=== PATIENT | male | born 1930 | race Caucasian/White ===

== ENCOUNTER 2018-08-23 12:14 | Inpatient (IN) ==
[2018-08-23] MEDS ORDERED: NITROGLYCERIN SL 0.4 MG/TAB TAB SL PRN (12:44)
[2018-08-23] MEDS ORDERED: ASPIRIN CHEW 324 MG PO STA (12:44)
--- NOTE | 2018-08-23 12:51 | Emergency Department Note ---
Entered by Ann Marie Adams acting as a scribe for Preston Helms DO History of Present Illness General Chief complaint: Chest Pain Stated complaint: CHEST PAIN GOING IN TO BACK/SHOULDERS Source: patient History of Present Illness Provider complaint: chest pain Onset (ago): hour(s) (last night) Location: chest Radiation: back (and shoulders) Pain Consistency: + constant Maximum Pain Intensity: 10 Quality: + other (pain) Associated symptoms: + denies other symptoms (denies abdominal pain) Treatments prior to arrival: other (Tylenol) The patient is an 87 year old male who presents to the Emergency Room with complaints of constant chest pain beginning last night. The patient rates his pain at a 10/10. He states that his pain also radiates to his back and shoulders. He states that nothing makes his pain worse or better. He denies having abdominal pain. The patient denies a history of a heart attack and a heart catheterization. He states that he took Tylenol for his pain but that it did not help to alleviate it. He states that he does not smoke and that he does not drink alcohol. He reports a history of diabetes. Home Medications Home Medications Medication Instructions Recorded Confirmed Type acetaminophen [Tylenol Extra 1,000 mg PO UD 08/23/18 08/23/18 History Strength] aspirin 81 mg PO QAM 08/23/18 08/23/18 History digoxin 0.125 mg PO QAM 08/23/18 08/23/18 History glipizide 10 mg PO BID 08/23/18 08/23/18 History hydralazine 12.5 mg PO BID 08/23/18 08/23/18 History metformin 850 mg PO BID 08/23/18 08/23/18 History metoprolol succinate 12.5 mg PO QAM 08/23/18 08/23/18 History simvastatin 20 mg PO QAM 08/23/18 08/23/18 History tramadol 50 mg PO Q6H PRN 08/23/18 08/23/18 History warfarin 2.5 mg PO 3XWK 08/23/18 08/23/18 History warfarin 5 mg PO 4XWK 08/23/18 08/23/18 History Allergies Allergy/AdvReac Type Severity Reaction Status Date / Time No Known Allergies Allergy Mild Unverified 08/23/18 13:42 Past Med/Surg History Medical History T2DM (type 2 diabetes mellitus) Persistent atrial fibrillation HTN (hypertension) HLD (hyperlipidemia) CKD (chronic kidney disease) stage 3, GFR 30-59 ml/min Hx of polymyalgia rheumatica 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 Surgical History History of total right knee replacement (TKR) History of lumbar surgery History of cataract extraction Social History marital status: Single Current Living Situation: Alone Current Living Situation Comment: Girlfriend (Edna) stays frequently Other Information That Helps Us Care for You: No Feels Safe at Home: Yes Safety Concerns: Feels Safe At This Time Smoking Status: Former smoker Tobacco Type: cigarettes Smoking End Date: 30 years ago Hx Alcohol Use: No Hx Substance Use: No Beliefs That Will Affect Care: None Preferred Language: Tanzanian Communication Ability: Effective Signal Apprentice Required: No Review of Systems See HPI for pertinent positives & negatives. and A total of 10 systems reviewed and were otherwise negative Physical Exam Vital Signs Vital Signs - 24 hr 08/23/18 12:18 08/23/18 12:55 08/23/18 13:00 Temperature 36 C L Temperature Source Oral Sepsis Recent Fever Within 48 Hours No Sepsis Action Taken by Nursing No Action Required Pulse Rate 54 L Pulse Rate [Apical] 77 78 Pulse Rate [Finger] Pulse Rhythm [Apical] Pulse Strength [Apical] Respiratory Rate 22 18 20 Respiratory Effort / Characteristics Respiratory Depth Respiratory Pattern Blood Pressure 134/65 Blood Pressure [Right Arm] 123/60 83/46 L Blood Pressure Mean 88 Blood Pressure Mean [Right Arm] 81 58 Blood Pressure Position Sitting Blood Pressure Position [Right Arm] Pulse Oximetry 97 95 96 Oxygen Delivery Method Room Air Room Air Room Air 08/23/18 13:26 08/23/18 13:27 08/23/18 15:06 Temperature Temperature Source Sepsis Recent Fever Within 48 Hours Sepsis Action Taken by Nursing Pulse Rate Pulse Rate [Apical] 87 100 H Pulse Rate [Finger] Pulse Rhythm [Apical] Pulse Strength [Apical] Respiratory Rate 20 20 Respiratory Effort / Characteristics Respiratory Depth Respiratory Pattern Blood Pressure Blood Pressure [Right Arm] 108/51 L 112/72 Blood Pressure Mean Blood Pressure Mean [Right Arm] 70 85 Blood Pressure Position Blood Pressure Position [Right Arm] Pulse Oximetry 95 95 96 Oxygen Delivery Method Room Air Room Air Room Air 08/23/18 16:16 08/23/18 16:30 08/23/18 19:40 Temperature 36.9 C 37.0 C Temperature Source Oral Oral Sepsis Recent Fever Within 48 Hours Sepsis Action Taken by Nursing Pulse Rate 71 Pulse Rate [Apical] 59 L 75 Pulse Rate [Finger] 81 Pulse Rhythm [Apical] Irregular Pulse Strength [Apical] Normal Respiratory Rate 18 20 16 Respiratory Effort / Characteristics Non-Labored Spontaneous Respiratory Depth Normal Respiratory Pattern Regular Blood Pressure Blood Pressure [Right Arm] 108/51 L 123/67 129/65 Blood Pressure Mean Blood Pressure Mean [Right Arm] 70 85 86 Blood Pressure Position Blood Pressure Position [Right Arm] Lying Lying Pulse Oximetry 96 96 95 Oxygen Delivery Method Room Air Room Air Room Air GENERAL: Patient is awake alert in no acute distress patient is resting comfortably and showing no signs of anxiety EYES: The conjunctivae are clear. The pupils are round and reactive. EARS, NOSE, MOUTH AND THROAT: The nose is without any evidence of any deformity. Mucous membranes are moist tongue is midline NECK: The neck is nontender and supple. RESPIRATORY: Scattered rhonchi were noted throughout. There is no tachypnea or conversational dyspnea appreciated. CARDIOVASCULAR: Regular rate and rhythm noted there no murmurs rubs or gallops normal S1 normal S2 GASTROINTESTINAL: The abdomen is soft. Bowel sounds are present in all quadrants. Abdomen is nontender PELVIS: The Pelvis is stable. No tenderness to palpation is noted. BACK: No midline tenderness or or step-off noted range of motion in flexion extension as well as rotation no signs of muscle spasm noted MUSCULOSKELETAL/EXTREMITIES: There is no evidence of gross deformity full range of motion is noted in the hips and shoulders SKIN: There is no obvious evidence of any rash. Trace pedal edema was noted bilaterally. NEUROLOGIC: Patient is awake alert and oriented x3. Course 1243: Past medical records reviewed. The patient was evaluated in room C12B, and a complete history and physical examination were performed. 1352: I updated the patient who verbalized agreement agreement and understanding of the treatment plan. 1405: I discussed the patient's case with Mahnaz Campbell who will evaluate the patient for further management. Consultations Consultation #1: Mahnaz Patacky PA-C [facility] Time: 14:05 Administered Medications Piperacillin Sod/Tazobactam (Sod 3.375 gm/ Dextrose) 115 mls @ 28.75 mls/hr IV Q8H PENDING SALE TO [facility]; Protocol Stop: 08/30/18 19:59 Last Admin: 08/23/18 21:05 Dose: 28.8 mls/hr Insulin Aspart (Novolog Flexpen) 0 units SC ACHS ABHILASH Stop: 09/22/18 16:54 Last Admin: 08/23/18 21:07 Dose: 2 units Admin: 08/23/18 17:45 Dose: 1 units Insulin Glargine (Lantus Solostar Pen) 10 units SC BID ABHILASH Stop: 09/22/18 20:59 Last Admin: 08/23/18 21:07 Dose: 10 units Nitroglycerin (Nitrostat) 0.4 mg SL PRN PRN PRN Reason: Moderate Pain Stop: 09/22/18 12:43 Last Admin: 08/23/18 12:55 Dose: 0.4 mg Discontinued Medications Aspirin (Aspirin) 324 mg PO NOW STA Stop: 08/23/18 12:45 Last Admin: 08/23/18 12:55 Dose: 324 mg Sodium Chloride (Nss 1000ml) 500 mls @ 999 mls/hr IV .Q31M ONE Stop: 08/23/18 13:34 Last Infusion: 08/23/18 13:59 Dose: 0 mls/hr Admin: 08/23/18 13:08 Dose: 999 mls/hr Piperacillin Sod/Tazobactam Sod (Zosyn) 4.5 gm in 120 mls @ 240 mls/hr IV NOW ONE Stop: 08/23/18 14:32 Last Infusion: 08/23/18 16:19 Dose: 0 mls/hr Admin: 08/23/18 15:01 Dose: 240 mls/hr Sodium Chloride (Nss 1000ml) 500 mls @ 999 mls/hr IV .Q31M ONE Stop: 08/23/18 14:34 Last Infusion: 08/23/18 16:19 Dose: 0 mls/hr Admin: 08/23/18 14:10 Dose: 999 mls/hr Phytonadione (Mephyton) Confirm Administered Dose 5 mg PO .STK-MED ONE Stop: 08/23/18 15:04 Last Admin: 08/23/18 15:07 Dose: 5 mg Medical Decision Making Differential Diagnosis Differential diagnosis: Etiologies such as shingles, musculoskeletal pain, pericarditis, myocarditis, cardiac ischemia, pericardial tamponade, pneumonia, pneumothorax, pleural effusion, hemothorax, pleurisy, aortic pathology, pulmonary embolism, intra- abdominal process, as well as others were considered. Medical Records Attestation: I reviewed the patient's medical records. Home Medications Current Medication List: was personally reviewed by me Laboratory Data Attestation: I reviewed the patient's lab results. Result diagrams: 08/23/18 12:37 08/23/18 12:37 Lab Results 08/23/18 08/23/18 08/23/18 Range/Units 12:37 12:37 12:37 WBC 17.01 H (4.8-10.8) K/uL RBC 3.42 L (4.7-6.1) M/uL Hgb 10.1 L (14.0-18.0) g/dL Hct 31.4 L (42-52) % MCV 91.8 (80-100) fL MCH 29.5 (25-34) pg MCHC 32.2 (32-36) g/dL RDW Std Deviation 46.0 (36.4-46.3) fL RDW Coeff of Leena 13.8 (11.5-14.5) % Plt Count 353 (130-400) K/uL MPV 10.0 (7.4-10.4) fL Immature Gran % (Auto) 0.4 % Neut % (Auto) 82.3 % Lymph % (Auto) 7.2 % [place] % (Auto) 9.9 % Eos % (Auto) 0.1 % Baso % (Auto) 0.1 % Immature Gran # (Auto) 0.07 H (0.00-0.02) K/uL Neut # (Auto) 13.99 H (1.4-6.5) K/uL Lymph # (Auto) 1.23 (1.2-3.4) K/uL [place] # (Auto) 1.69 H (0.11-0.59) K/uL Eos # (Auto) 0.01 (0-0.5) K/uL Baso # (Auto) 0.02 (0-0.2) K/uL PT 61.8 H (9.0-12.0) Seconds INR 6.9 H* (0.9-1.1) APTT 47.8 H* (21.0-31.0) Seconds PTT Ratio 1.8 Sodium 134 L (136-145) mmol/L Potassium 4.7 (3.5-5.1) mmol/L Chloride 103 (98-107) mmol/L Carbon Dioxide 26 (21-32) mmol/L Anion Gap 5.0 (3-11) BUN 41 H (7-18) mg/dl Creatinine 2.04 H (0.6-1.4) mg/dl Est Cr Clr Drug Dosing 29.9 ml/min Est GFR ( Amer) 32.7 Est GFR (Non-Af Amer) 28.3 BUN/Creatinine Ratio 20.3 H (10-20) Glucose 257 H (70-99) mg/dl POC Glucose (70-99) Lactate (0.4-2.0) mmol/L Calcium 8.6 (8.5-10.1) mg/dl Total Bilirubin 0.6 (0.2-1) mg/dl AST 31 (15-37) U/L ALT 44 (12-78) U/L Alkaline Phosphatase 67 (45-117) U/L Total Creatine Kinase 35 L (39-308) U/L CK-MB (CK-2) 1.1 (0.5-3.6) ng/ml CK/CKMB % Calc 3.1 H (0-3.0) Troponin I < 0.015 (0-0.045) ng/ml NT-Pro-B Natriuret Pep (0-1800) pg/ml Total Protein 7.9 (6.4-8.2) gm/dl Albumin 2.4 L (3.4-5.0) gm/dl Globulin 5.5 H (2.5-4.0) gm/dl Albumin/Globulin Ratio 0.4 L (0.9-2) Lipase 125 (73-393) U/L Procalcitonin (0-0.5) ng/ml Digoxin (0.8-2.0) ng/ml Influenza Type A (PCR) (Neg) Influenza Type B (PCR) (Neg) 02/19/19 02/19/19 02/19/19 Range/Units 12:37 12:37 12:37 WBC (4.8-10.8) K/uL RBC (4.7-6.1) M/uL Hgb (14.0-18.0) g/dL Hct (42-52) % MCV (80-100) fL MCH (25-34) pg MCHC (32-36) g/dL RDW Std Deviation (36.4-46.3) fL RDW Coeff of Leena (11.5-14.5) % Plt Count (130-400) K/uL MPV (7.4-10.4) fL Immature Gran % (Auto) % Neut % (Auto) % Lymph % (Auto) % [place] % (Auto) % Eos % (Auto) % Baso % (Auto) % Immature Gran # (Auto) (0.00-0.02) K/uL Neut # (Auto) (1.4-6.5) K/uL Lymph # (Auto) (1.2-3.4) K/uL [place] # (Auto) (0.11-0.59) K/uL Eos # (Auto) (0-0.5) K/uL Baso # (Auto) (0-0.2) K/uL PT (9.0-12.0) Seconds INR (0.9-1.1) APTT (21.0-31.0) Seconds PTT Ratio Sodium (136-145) mmol/L Potassium (3.5-5.1) mmol/L Chloride (98-107) mmol/L Carbon Dioxide (21-32) mmol/L Anion Gap (3-11) BUN (7-18) mg/dl Creatinine (0.6-1.4) mg/dl Est Cr Clr Drug Dosing ml/min Est GFR ( Amer) Est GFR (Non-Af Amer) BUN/Creatinine Ratio (10-20) Glucose (70-99) mg/dl POC Glucose (70-99) Lactate (0.4-2.0) mmol/L Calcium (8.5-10.1) mg/dl Total Bilirubin (0.2-1) mg/dl AST (15-37) U/L ALT (12-78) U/L Alkaline Phosphatase (45-117) U/L Total Creatine Kinase (39-308) U/L CK-MB (CK-2) (0.5-3.6) ng/ml CK/CKMB % Calc (0-3.0) Troponin I (0-0.045) ng/ml NT-Pro-B Natriuret Pep 2695 H (0-1800) pg/ml Total Protein (6.4-8.2) gm/dl Albumin (3.4-5.0) gm/dl Globulin (2.5-4.0) gm/dl Albumin/Globulin Ratio (0.9-2) Lipase (73-393) U/L Procalcitonin 0.21 (0-0.5) ng/ml Digoxin 0.1 L (0.8-2.0) ng/ml Influenza Type A (PCR) (Neg) Influenza Type B (PCR) (Neg) 08/23/18 08/23/18 08/23/18 Range/Units 14:20 14:33 17:05 WBC (4.8-10.8) K/uL RBC (4.7-6.1) M/uL Hgb (14.0-18.0) g/dL Hct (42-52) % MCV (80-100) fL MCH (25-34) pg MCHC (32-36) g/dL RDW Std Deviation (36.4-46.3) fL RDW Coeff of Leena (11.5-14.5) % Plt Count (130-400) K/uL MPV (7.4-10.4) fL Immature Gran % (Auto) % Neut % (Auto) % Lymph % (Auto) % [place] % (Auto) % Eos % (Auto) % Baso % (Auto) % Immature Gran # (Auto) (0.00-0.02) K/uL Neut # (Auto) (1.4-6.5) K/uL Lymph # (Auto) (1.2-3.4) K/uL [place] # (Auto) (0.11-0.59) K/uL Eos # (Auto) (0-0.5) K/uL Baso # (Auto) (0-0.2) K/uL PT (9.0-12.0) Seconds INR (0.9-1.1) APTT (21.0-31.0) Seconds PTT Ratio Sodium (136-145) mmol/L Potassium (3.5-5.1) mmol/L Chloride (98-107) mmol/L Carbon Dioxide (21-32) mmol/L Anion Gap (3-11) BUN (7-18) mg/dl Creatinine (0.6-1.4) mg/dl Est Cr Clr Drug Dosing ml/min Est GFR ( Amer) Est GFR (Non-Af Amer) BUN/Creatinine Ratio (10-20) Glucose (70-99) mg/dl POC Glucose 200 H (70-99) Lactate 1.9 (0.4-2.0) mmol/L Calcium (8.5-10.1) mg/dl Total Bilirubin (0.2-1) mg/dl AST (15-37) U/L ALT (12-78) U/L Alkaline Phosphatase (45-117) U/L Total Creatine Kinase (39-308) U/L CK-MB (CK-2) (0.5-3.6) ng/ml CK/CKMB % Calc (0-3.0) Troponin I (0-0.045) ng/ml NT-Pro-B Natriuret Pep (0-1800) pg/ml Total Protein (6.4-8.2) gm/dl Albumin (3.4-5.0) gm/dl Globulin (2.5-4.0) gm/dl Albumin/Globulin Ratio (0.9-2) Lipase (73-393) U/L Procalcitonin (0-0.5) ng/ml Digoxin (0.8-2.0) ng/ml Influenza Type A (PCR) Neg for Influ A (Neg) Influenza Type B (PCR) Neg for Influ B (Neg) 08/23/18 08/23/18 Range/Units 18:32 20:35 WBC (4.8-10.8) K/uL RBC (4.7-6.1) M/uL Hgb (14.0-18.0) g/dL Hct (42-52) % MCV (80-100) fL MCH (25-34) pg MCHC (32-36) g/dL RDW Std Deviation (36.4-46.3) fL RDW Coeff of Leena (11.5-14.5) % Plt Count (130-400) K/uL MPV (7.4-10.4) fL Immature Gran % (Auto) % Neut % (Auto) % Lymph % (Auto) % [place] % (Auto) % Eos % (Auto) % Baso % (Auto) % Immature Gran # (Auto) (0.00-0.02) K/uL Neut # (Auto) (1.4-6.5) K/uL Lymph # (Auto) (1.2-3.4) K/uL [place] # (Auto) (0.11-0.59) K/uL Eos # (Auto) (0-0.5) K/uL Baso # (Auto) (0-0.2) K/uL PT (9.0-12.0) Seconds INR (0.9-1.1) APTT (21.0-31.0) Seconds PTT Ratio Sodium (136-145) mmol/L Potassium (3.5-5.1) mmol/L Chloride (98-107) mmol/L Carbon Dioxide (21-32) mmol/L Anion Gap (3-11) BUN (7-18) mg/dl Creatinine (0.6-1.4) mg/dl Est Cr Clr Drug Dosing ml/min Est GFR ( Amer) Est GFR (Non-Af Amer) BUN/Creatinine Ratio (10-20) Glucose (70-99) mg/dl POC Glucose 212 H (70-99) Lactate (0.4-2.0) mmol/L Calcium (8.5-10.1) mg/dl Total Bilirubin (0.2-1) mg/dl AST (15-37) U/L ALT (12-78) U/L Alkaline Phosphatase (45-117) U/L Total Creatine Kinase (39-308) U/L CK-MB (CK-2) (0.5-3.6) ng/ml CK/CKMB % Calc (0-3.0) Troponin I 0.019 (0-0.045) ng/ml NT-Pro-B Natriuret Pep (0-1800) pg/ml Total Protein (6.4-8.2) gm/dl Albumin (3.4-5.0) gm/dl Globulin (2.5-4.0) gm/dl Albumin/Globulin Ratio (0.9-2) Lipase (73-393) U/L Procalcitonin (0-0.5) ng/ml Digoxin (0.8-2.0) ng/ml Influenza Type A (PCR) (Neg) Influenza Type B (PCR) (Neg) Imaging Data Radiologist's Impression: Radiology results as stated below per my review and the radiologist's interpretation: XR chest 1V portable HISTORY: 87 years-old Male Chest Pain acute atypical chest pain COMPARISON: Chest radiograph 11/10/2012 TECHNIQUE: Portable AP view of the chest FINDINGS: Cardiac silhouette is enlarged, unchanged. Calcification the thoracic aortic arch. Moderate sized left pleural effusion with lateral loculation. Left midlung and left basilar consolidative opacities. Bilateral pleural calcifications redemonstrated without pneumothorax. Mild chronic interstitial coarsening without overt pulmonary edema. Degenerative changes of the shoulders and spine. Healed fracture deformity about the mid right clavicle. IMPRESSION: 1. Moderate-sized left pleural effusion with left midlung and left basilar consolidation. 2. Cardiomegaly without overt pulmonary edema. 3. 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 The above report was generated using voice recognition software. It may contain grammatical, syntax or spelling errors. Electronically signed by: Rohan Jeffrey M.D. 08/23/2018 12:58 PM ECG Data Attestation: I personally reviewed and interpreted this ECG as follows: Indication: chest pain Rate (beats per minute): 84 Rhythm: atrial fibrillation Findings: + ST elevation (questionable in V3); no PAC, no PVC and no ectopy Comparison ECG Date: from (11/11/12) Change: the following changes noted (changes are new) Additional Comments: repeat ECG: Atrial fibrillation, 78, RBBB, resolution of previously noted ST segment abnormalities Blood Pressure Blood Pressure Findings: Low blood pressure Blood Pressure Disposition: further management by hospitalist EVAN Narrative The patient is an 87-year-old male who presented to the emergency department for an evaluation of chest discomfort. The patient's EKG showed initial ST segment abnormalities. He was treated with aspirin and nitroglycerin in the emergency department with some relief. His workup also revealed signs of a pneumonia. I discussed the patient's laboratory and radiographic studies with him. Because of his ongoing symptoms I also discussed his case with the on- call [facility] hospitalist. He was treated with IV antibiotic. He was feeling somewhat improved on final reevaluation. Impression & Plan Chest pain, PNA (pneumonia), Abnormal ECG, Elevated INR Discharge Plan Visit Data *Final* Discharge Date/Time: 08/23/18 16:25 Chief Complaint: Chest Pain Stated Complaint: CHEST PAIN GOING IN TO BACK/SHOULDERS ED Provider: Preston Helms Discharge Problem: Chest pain, PNA (pneumonia), Abnormal ECG, Elevated INR Patient Disposition: Admitted As Inpatient Discharge Instructions Interventions: ED Discharge Assessment Last Done: 08/23/18 16:25 The scribe's documentation has been prepared under my direction and personally reviewed by me in its entirety. I confirm that the note above accurately reflects all work, treatment, procedures, and medical decision making performed by me.
[2018-08-23 12:59] LABS: Basophils # (auto) 0.02 K/uL (0-0.2); Basophils % (auto) 0.1 %; Eosinophils # (auto) 0.01 K/uL (0-0.5); Eosinophils % (auto) 0.1 %; Hematocrit (blood only) 31.4 % (42-52); Hemoglobin 10.1 g/dL (14.0-18.0); Immature Granulocytes # (auto) 0.07 K/uL (0.00-0.02); Immature Granulocytes % (auto) 0.4 %; Lymphocytes # (auto) 1.23 K/uL (1.2-3.4); Lymphocytes % (auto) 7.2 %; Mean Corpuscular Hgb Conc 32.2 g/dL (32-36); Mean Corpuscular Volume 91.8 fL (80-100); Monocytes # (auto) 1.69 K/uL (0.11-0.59); Monocytes % (auto) 9.9 %; Neutrophils # (auto) 13.99 K/uL (1.4-6.5); Neutrophils % (auto) 82.3 %; Platelet Count 353 K/uL (130-400); RDW Coefficient of Variation 13.8 % (11.5-14.5); Red Blood Count 3.42 M/uL (4.7-6.1); White Blood Count 17.01 K/uL (4.8-10.8)
--- NOTE | 2018-08-23 12:59 | XRay Report ---
XR chest 1V portable HISTORY: 87 years-old Male Chest Pain acute atypical chest pain COMPARISON: Chest radiograph 11/10/2012 TECHNIQUE: Portable AP view of the chest FINDINGS: Cardiac silhouette is enlarged, unchanged. Calcification the thoracic aortic arch. Moderate sized lef t pleural effusion with lateral loculation. Left midlung and left basilar consolidative opacities. Bi lateral pleural calcifications redemonstrated without pneumothorax. Mild chronic interstitial coarsen ing without overt pulmonary edema. Degenerative changes of the shoulders and spine. Healed fracture d eformity about the mid right clavicle. IMPRESSION: 1. Moderate-sized left pleural effusion with left midlung and left basilar consolidation. 2. Cardiomegaly without overt pulmonary edema. 3. 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 The above report was generated using voice recognition software. It may contain grammatical, syntax o r spelling errors. Electronically signed by: Rohan Jeffrey M.D. 08/23/2018 12:58 PM
[2018-08-23] MEDS ORDERED: SODIUM CHLORIDE 0.9% 1000ML 500 ML IV ONE ×2 (13:04→14:04)
[2018-08-23 13:05] LABS: Alanine Aminotransferase 44 U/L (12-78); Albumin Level 2.4 gm/dl (3.4-5.0); Aspartate Aminotransferase 31 U/L (15-37); BUN Creatinine Ratio 20.3 (10-20); Blood Urea Nitrogen 41 mg/dl (7-18); Calcium 8.6 mg/dl (8.5-10.1); Carbon Dioxide 26 mmol/L (21-32); Chloride 103 mmol/L (98-107); Creatinine Clr Calc Pharmacy 29.9 ml/min; Est GFR (African American) 32.7; Est GFR (Non-African American) 28.3; Glucose 257 mg/dl (70-99); Potassium 4.7 mmol/L (3.5-5.1); Sodium 134 mmol/L (136-145)
[2018-08-23 13:10] LABS: Albumin Globulin Ratio 0.4 (0.9-2); Alkaline Phosphatase 67 U/L (45-117); Bilirubin,Total 0.6 mg/dl (0.2-1); Creatine Kinase 35 U/L (39-308); Creatine Kinase MB 1.1 ng/ml (0.5-3.6); Globulin 5.5 gm/dl (2.5-4.0); Total Protein 7.9 gm/dl (6.4-8.2); Troponin I < 0.015 ng/ml (0-0.045)
[2018-08-23 13:22] LABS: Partial Thromboplastin Ratio 1.8; Prothrombin Time 61.8 Seconds (9.0-12.0)
[2018-08-23 13:33] LABS: Partial Thromboplastin Time 47.8 Seconds (21.0-31.0)
[2018-08-23 13:34] LABS: INR 6.9 (0.9-1.1)
[2018-08-23] MEDS ORDERED: PIPERACILL/TAZOBAC CONSULT ACTIVE PRN ×2 (14:03→16:55)
[2018-08-23] MEDS ORDERED: PIPERACILLIN/TAZOBACTAM 4.5 GM/120 ML BAG IV ONE (14:03)
[2018-08-23] MEDS ORDERED: PHYTONADIONE 5 MG TAB PO STA (14:57)
[2018-08-23] MEDS ORDERED: PHYTONADIONE 5 MG TAB PO ONE (15:03)
[2018-08-23 15:12] LABS: Influenza A virus by PCR Neg for Influ A (Neg); Influenza B virus by PCR Neg for Influ B (Neg)
--- NOTE | 2018-08-23 15:27 | History & Physical Report ---
Date of Service August 23, 2018 Assessment & Plan (1) Chest pain: This is a 87-year-old male with significant PMH of persistent A. 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 In ED initial troponin was negative, EKG without acute change, chronic bifascicular block noted in atrial fibrillation. Chest x-ray consistent with moderate left pleural effusion, lateral loculation, left midlung/basilar consolidative opacity with mild chronic interstitial thickening and calcified pleural plaques. Patient with leukocytosis 17 K with left shift, BUN/ creatinine stable 41 and 2.04, dig 0.1, lactate 1.9, pro-calcitonin within normal limits, influenza swab negative. In ED patient received ASA and nitro which resulted in hypotension. Blood pressure improved with fluid bolus. He was also given IV Zosyn given pneumonic appearance of chest x-ray. DDX but not limited to: Pulm: PNA, empyema, abscess, transudative pleural effusion, infectious effusion, Cardiac: Pericarditis, pericardial tamponade, CHF , ACS, aortic dissection -Admit to telemetry -Consult pulmonology, discussed case with Dr. Alonso who will likely perform thoracentesis with fluid analysis -Obtain CT scan chest without contrast given renal function -Continue IV Zosyn given pleural effusion -Check MRSA swab, if negative we will not implement MRSA coverage -Await BNP -Obtain echocardiogram -Serial troponin starting at 6 PM (2) Pleural effusion, left: (3) DEMPSEY (dyspnea on exertion): (4) Persistent atrial fibrillation: -Rate controlled on metoprolol and digoxin, continue -Dig level 0.1 today -Warfarin for anticoagulation, INR 6.9, once evening (patient already took a dose this a.m.) -5 mg vitamin K given secondary to likely thoracentesis -Repeat INR in a.m. (5) T2DM (type 2 diabetes mellitus): -Unknown A1c, last noted in outpatient records 06/29/17 was 7.4 -Hold outpatient metformin and glipizide, would recommend discontinuing metformin as outpatient given current renal function -Lantus/NovoLog per protocol -A1c in a.m. (6) HTN (hypertension): -Blood pressure on low side, will hold home hydralazine -Continue metoprolol with parameters (7) HLD (hyperlipidemia): -Continue statin (8) CKD (chronic kidney disease) stage 3, GFR 30-59 ml/min: -Baseline creatinine 1.71.9 -BUN/creatinine today 41 and 2.04 -Follow BMP and avoid nephrotoxic agents -Patient on metformin as outpatient, would recommend discontinuing given current renal function (9) Anemia: -H/H 10.0 and 31.4 -H/H in 01/2017 13.2 and 40 -Normocytic normochromic -Monitor CBC, may be secondary CKD stage III (10) Elevated INR: -INR supratherapeutic at 6.9, hold Coumadin -Check PT/INR in a.m. -5 mg of vitamin K ordered secondary to likely thoracentesis -No signs or symptoms of current bleeding (11) DVT prophylaxis: -INR supratherapeutic at 6.9, hold Coumadin -Check PT/INR in a.m. -5 mg of vitamin K ordered secondary to likely thoracentesis Disposition: to be determined, case management consulted [facility] Patient was seen in collaboration with Dr. Wayne, please see addendum. Starting 08/24/18 patient will be under the care of Dr. Ng. History of Present Illness Chief Complaint: Chest pain x 2-3 weeks. Primary Care Provider: Gopi Valdivia This is a 87-year-old male with significant PMH of persistent A. 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 Symptoms are associated with DEMPSEY that has been progressively worsening. Patient states that he woke up approximately 2 AM with stabbing precordial chest pain that radiated to back, constant, wax and wane in severity, worse with inspiration. Denies any recent viral illness, cough, hemoptysis, associated diaphoresis or nausea, edema, orthopnea, PND. Never had anything like this in past. Further denies fever, chills, sweats, lightheadedness, dizziness, abdominal pain, change in bowel or urinary habits, hematuria, melena. Appetite has been decreased for the past 2-3 months with associated weight loss. Unsure of amount of weight loss, but lady friend states , "he is getting down to skin and bones." He ambulates with cane. Allergies Allergy/AdvReac Type Severity Reaction Status Date / Time No Known Allergies Allergy Mild Unverified 08/23/18 13:42 Home Medications Home Medications Medication Instructions Recorded Confirmed Type acetaminophen [Tylenol Extra 1,000 mg PO UD 08/23/18 08/23/18 History Strength] aspirin 81 mg PO QAM 08/23/18 08/23/18 History digoxin 0.125 mg PO QAM 08/23/18 08/23/18 History glipizide 10 mg PO BID 08/23/18 08/23/18 History hydralazine 12.5 mg PO BID 08/23/18 08/23/18 History metformin 850 mg PO BID 08/23/18 08/23/18 History metoprolol succinate 12.5 mg PO QAM 08/23/18 08/23/18 History simvastatin 20 mg PO QAM 08/23/18 08/23/18 History tramadol 50 mg PO Q6H PRN 08/23/18 08/23/18 History warfarin 2.5 mg PO 3XWK 08/23/18 08/23/18 History warfarin 5 mg PO 4XWK 08/23/18 08/23/18 History Past Med/Surg History Medical History T2DM (type 2 diabetes mellitus) Persistent atrial fibrillation HTN (hypertension) HLD (hyperlipidemia) CKD (chronic kidney disease) stage 3, GFR 30-59 ml/min Hx of polymyalgia rheumatica 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 Surgical History History of total right knee replacement (TKR) History of lumbar surgery History of cataract extraction Social History marital status: Single Current Living Situation: Alone Current Living Situation Comment: Girlfriend (Edna) stays frequently Other Information That Helps Us Care for You: No Feels Safe at Home: Yes Safety Concerns: Feels Safe At This Time Smoking Status: Former smoker Tobacco Type: cigarettes Smoking End Date: 30 years ago Hx Alcohol Use: No Hx Substance Use: No Beliefs That Will Affect Care: None Preferred Language: Greek Communication Ability: Effective Spar Finisher Required: No Review of Systems All systems reviewed & are unremarkable except as noted in HPI & below Physical Exam 2 Vital Signs (Past 24 Hours): Last Vital Signs Temp 36 C L 08/23/18 12:18 Pulse 100 H 08/23/18 15:06 Resp 20 08/23/18 15:06 BP 112/72 08/23/18 15:06 Pulse Ox 96 08/23/18 15:06 Physical Exam: Gen: Tall, thin, M, NAD, sitting up in bed, pleasant, conversing easily Head: Normocephalic, Atraumatic Eyes: Sclera normal, no conjunctival injection, PERRLA, EOMI ENT: Gross hearing intact, normal pharynx, mucous membranes moist but poor dentition Neck: supple, no adenopathy, + JVD, no bruit, Resp: Clear to auscultation b/l with decreased breath sounds LLL, no wheeze, rales, rhonchi. Normal insp/exp effort, no accessory muscle use CV: irregular rate, irrregular rhythm, no murmur, + gallop noted throughout precordium with associated subtle rub, no ectopy Abd: +BS x 4, soft, nontender, nondistended Musculoskeletal: moves extremities active rom x 4, strength intact, good electrical equipment technician strength Extremities: No edema bilaterally Skin: warm, moist, no rash, negative turgor, cap refill < 2sec Neuro: Alert and oriented x 3, speech normal, good mood/affect, cran nerve 2-12 intact grossly : deferred Results & Data Laboratory Results Short CBC 08/23/18 Range/Units 12:37 WBC 17.01 H (4.8-10.8) K/uL Hgb 10.1 L (14.0-18.0) g/dL Hct 31.4 L (42-52) % Plt Count 353 (130-400) K/uL BMP 08/23/18 12:37 Sodium 134 L Potassium 4.7 Chloride 103 Carbon Dioxide 26 BUN 41 H Creatinine 2.04 H Glucose 257 H Calcium 8.6 Cardiac Enzymes 08/23/18 Range/Units 12:37 Total Creatine Kinase 35 L (39-308) U/L CK-MB (CK-2) 1.1 (0.5-3.6) ng/ml Troponin I < 0.015 (0-0.045) ng/ml Liver Function 08/23/18 Range/Units 12:37 Total Bilirubin 0.6 (0.2-1) mg/dl AST 31 (15-37) U/L ALT 44 (12-78) U/L Alkaline Phosphatase 67 (45-117) U/L Albumin 2.4 L (3.4-5.0) gm/dl Diagnostic Findings CXR: IMPRESSION: 1. Moderate-sized left pleural effusion with left midlung and left basilar consolidation. 2. Cardiomegaly without overt pulmonary edema. 3. 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 ECG Rate (beats per minute): 78 Rhythm: atrial fibrillation Additional Comments: qtc [id number] Code Status & VTE Plan Code Status Full Code VTE Prophylaxis Plan VTE Prophylaxis will be ordered: Yes Supervising Physician Co-Signing Physician Notes Pt was seen and examined. Agreed with Mahnaz exam, assessment and plan. 87- year-old male with significant PMH of persistent A. fib on long-term warfarin, chronic bifascicular heart block, HTN, HLD, T2 DM, CKD stage III, history of PMR , history of tachycardic induced cardiomyopathy presents to the ER with chest pain associated with worsening SOB for the past 2 weeks. CX chest done on admission showed moderate-sized left pleural effusion with left midlung and left basilar consolidation. EKG on admission with Afib. He is on coumadin with INR above 6. Case discussed with pulmonology, plan for thoracentesis in am. Will give vit K 5mg x1 today for the thoracentesis (already took his coumadin for today). Will get an echo in the morning. Monitor troponin. Will continue monitor closely in telemetry. MD Tone _ (1) T2DM (type 2 diabetes mellitus) Chronic kidney disease stage: stage 3 (moderate) Diabetes mellitus complication detail: with chronic kidney disease Diabetes mellitus complication status: with kidney complications Diabetes mellitus care home insulin use: without care home use Qualified Code(s): E11.22 - Type 2 diabetes mellitus with diabetic chronic kidney disease; N18.3 - Chronic kidney disease, stage 3 (moderate) (2) Anemia Anemia type: unspecified type Qualified Code(s): D64.9 - Anemia, unspecified (3) HLD (hyperlipidemia) Hyperlipidemia type: unspecified Qualified Code(s): E78.5 - Hyperlipidemia, unspecified (4) Chest pain Chest pain type: unspecified Ischemic chest pain type: Qualified Code(s): R07.9 - Chest pain, unspecified (5) HTN (hypertension) Hypertension type: essential hypertension Qualified Code(s): I10 - Essential (primary) hypertension
--- NOTE | 2018-08-23 16:08 | CT Scan Report ---
CT chest wo con CLINICAL HISTORY: L pleural effusion COMPARISON STUDY: 08/23/2018 CT DOSE: 674.35 mGy.cm TECHNIQUE: CT of the thorax was performed from the thoracic inlet to the lung bases. Images are revi ewed in the axial, sagittal, and coronal planes. IV contrast was not administered for this examinatio n. A dose lowering technique was utilized adhering to the principles of ALARA. FINDINGS: Thyroid: There is a multinodular thyroid goiter. 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 Heart: The heart is mildly enlarged. There are coronary artery calcifications. Lungs and pleural spaces: There are extensive pleural diaphragmatic calcifications, raising the possi bility of prior spasticity exposure. There is a complex left pleural effusion with possible areas of pleural nodularity. There are left lower lobe airspace opacities, likely representing compressive ate lectasis. There is a Sabre like configuration of the trachea. Mediastinum: There are mildly enlarged mediastinal lymph nodes with index 12 mm right paratracheal no de. Lia: There is no evidence of pathologic hilar adenopathy given the limitations of a noncontrast stud y Axilla: There is no evidence of pathologic axillary adenopathy Upper abdomen: There is a 52 mm right renal cyst. There is a punctate right renal calculus. Skeletal structures: There are no lytic or blastic osseous lesions. IMPRESSION: 1. Moderate complex left pleural effusion with areas of probable pleural nodularity. Pulmonary consul tation for consideration of a diagnostic thoracentesis is recommended in follow-up 2. Left lower lobe airspace opacities, likely representing compressive atelectasis 3. Extensive pleurodiaphragmatic calcifications raise the possibility of asbestos related disease 4. Enlarged multinodular thyroid goiter 5. Mild mediastinal lymphadenopathy 6. Dilatation of the ascending thoracic aorta which measures 45 mm Electronically signed by: Jordan Peña M.D. 08/23/2018 4:07 PM
[2018-08-23] MEDS ORDERED: GLUCAGON FOR INJ 1 MG VIAL SQ PRN (16:55)
[2018-08-23] MEDS ORDERED: GLUCOSE 40% GEL 15 GM TUBE PO PRN (16:55)
[2018-08-23] MEDS ORDERED: ACETAMINOPHEN 325 MG TAB PO PRN (16:55)
[2018-08-23] MEDS ORDERED: POLYETHYLENE (MIRALAX) 17 GM PACK PO PRN (16:55)
[2018-08-23] MEDS ORDERED: CARBOHYDRATES FOR HYPOGLYCEMIA PO PRN (16:55)
[2018-08-23] MEDS ORDERED: GLUCOSE 10 TABS/TUBE PO PRN (16:55)
[2018-08-23] MEDS ORDERED: ONDANSETRON INJ 2 MG/ML 2 ML VIAL IV PRN (16:55)
[2018-08-23] MEDS ORDERED: DEXTROSE 50% 50 ML SYRINGE IV PRN (16:55)
[2018-08-23] MEDS ORDERED: LEVALBUTEROL HCL 0.63 MG/3 ML NEB NEB PRN (16:55)
[2018-08-23] MEDS: INSULIN ASPART 100 UNITS/ML 3 ML PEN SC SCH ×2 (17:45→21:07)
[2018-08-23] MEDS: PIPERACILLIN/TAZOBACTAM 3.375 GM in DEXTROSE 5% 100 ML IV SCH (21:05)
[2018-08-23] MEDS: INSULIN GLARGINE SOLOSTAR 100 UNITS/ML 3 ML PEN SC SCH (21:07)
[2018-08-24] MEDS: PIPERACILLIN/TAZOBACTAM 3.375 GM in DEXTROSE 5% 100 ML IV SCH ×3 (04:03→21:02)
[2018-08-24 06:07] LABS: Basophils # (auto) 0.01 K/uL (0-0.2); Basophils % (auto) 0.1 %; Eosinophils # (auto) 0.06 K/uL (0-0.5); Eosinophils % (auto) 0.4 %; Hematocrit (blood only) 28.6 % (42-52); Immature Granulocytes # (auto) 0.04 K/uL (0.00-0.02); Immature Granulocytes % (auto) 0.3 %; Lymphocytes # (auto) 1.07 K/uL (1.2-3.4); Mean Corpuscular Hgb Conc 31.5 g/dL (32-36); Mean Corpuscular Volume 91.1 fL (80-100); Mean Platelet Volume 9.7 fL (7.4-10.4); Monocytes # (auto) 1.34 K/uL (0.11-0.59); Neutrophils # (auto) 10.85 K/uL (1.4-6.5); Neutrophils % (auto) 81.2 %; Platelet Count 259 K/uL (130-400); RDW Coefficient of Variation 13.9 % (11.5-14.5); RDW Standard Deviation 46.1 fL (36.4-46.3); Red Blood Count 3.14 M/uL (4.7-6.1); White Blood Count 13.37 K/uL (4.8-10.8)
[2018-08-24 06:35] LABS: BUN Creatinine Ratio 22.3 (10-20); Calcium 8.3 mg/dl (8.5-10.1); Creatinine Clr Calc Pharmacy 27.6 ml/min; Est GFR (African American) 32.9; Est GFR (Non-African American) 28.4; Magnesium 1.9 mg/dl (1.8-2.4); Potassium 4.7 mmol/L (3.5-5.1)
[2018-08-24 06:45] LABS: Prothrombin Time 50.6 Seconds (9.0-12.0)
[2018-08-24 06:46] LABS: Estimated Average Glucose 160 mg/dl; Hemoglobin A1C 7.2 % (4.5-5.6)
[2018-08-24 06:49] LABS: INR 5.6 (0.9-1.1)
[2018-08-24] MEDS ORDERED: PHYTONADIONE 5 MG TAB PO STA (07:01)
[2018-08-24] MEDS ORDERED: PHYTONADIONE PED 2 MG, ORA-SWEET SYRUP 2.25 ML, ORA-PLUS SUSP VEHICLE 2.25 ML, BARCODE ... PO ONE (07:15)
[2018-08-24] MEDS: INSULIN ASPART 100 UNITS/ML 3 ML PEN SC SCH ×4 (07:56→21:07)
[2018-08-24] MEDS: INSULIN GLARGINE SOLOSTAR 100 UNITS/ML 3 ML PEN SC SCH ×2 (07:57→21:02)
[2018-08-24] MEDS: METOPROLOL SUCC 25MG EXT REL TAB PO SCH (07:58)
[2018-08-24] MEDS: SIMVASTATIN 20 MG TAB PO SCH (07:58)
[2018-08-24] MEDS: ASPIRIN 81 MG CHEW PO SCH (09:25)
--- NOTE | 2018-08-24 13:05 | Hospitalist Progress Note ---
Date of Service August 24, 2018 Assessment & Plan (1) Chest pain: DDX but not limited to: Pulm: PNA, empyema, abscess, transudative pleural effusion, infectious effusion, Cardiac: Pericarditis, pericardial tamponade, CHF , ACS, aortic dissection Pain is likely secondary to pleurisy secondary to pneumonia and effusion Consult pulmonology-appreciate input and recommendation Obtain CT scan chest without contrast given renal function Continue IV Zosyn for possible empyema and pneumonic effusion Check MRSA swab, if negative we will not implement MRSA coverage Doubt any ACS Echo of the heart: Moderate pulmonary hypertension, mild right ventricular dilatation with decreased right ventricular systolic function, mild to moderate left and right atrial dilatation, bicuspid aortic valve with regurgitation, mild aortic stenosis, EF of 55-60% (2) Pleural effusion, left: Associated with chest pain with deep breathing Seems to be pneumonic effusion Appreciate thoracic surgery input and recommendation Likely to have decortication tomorrow (3) DEMPSEY (dyspnea on exertion): Secondary to effusion (4) Persistent atrial fibrillation: -Rate controlled on metoprolol and digoxin, continue -Dig level 0.1 today -Warfarin for anticoagulation, INR 6.9, once evening (patient already took a dose this a.m.) -5 mg vitamin K given secondary to likely thoracentesis -Repeat INR in a.m. -INR remains high at 5.6 today -Put another dose of vitamin K this morning -Repeat INR tomorrow, if not below 1.5 we will give fresh frozen plasma before surgery (5) T2DM (type 2 diabetes mellitus): -Unknown A1c, last noted in outpatient records 06/29/17 was 7.4 -Hold outpatient metformin and glipizide, would recommend discontinuing metformin as outpatient given current renal function -Lantus/NovoLog per protocol -A1c in a.m-7.2. (6) HTN (hypertension): -Blood pressure on low side, will hold home hydralazine -Continue metoprolol with parameters (7) HLD (hyperlipidemia): -Continue statin (8) CKD (chronic kidney disease) stage 3, GFR 30-59 ml/min: -Baseline creatinine 1.71.9 -BUN/creatinine today 41 and 2.04 -Follow BMP and avoid nephrotoxic agents -Patient on metformin as outpatient, would recommend discontinuing given current renal function -Creatinine 2.03 (9) Anemia: -H/H 10.0 and 31.4 -H/H in 01/2017 13.2 and 40 -Normocytic normochromic -Monitor CBC, may be secondary CKD stage III -Hemoglobin is 9 today (10) Elevated INR: -INR supratherapeutic at 6.9, hold Coumadin -Check PT/INR in a.m. -5 mg of vitamin K ordered secondary to likely thoracentesis -No signs or symptoms of current bleeding -INR 5.6 today -We will monitor (11) DVT prophylaxis: -INR supratherapeutic at 6.9, hold Coumadin -Check PT/INR in a.m. -5 mg of vitamin K ordered secondary to likely thoracentesis Disposition: to be determined, case management consulted [facility] Subjective This is a 87-year-old male with significant PMH of persistent A. 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 08/24 The patient was seen and examined in telemetry unit He continues to have mild to moderate shortness of breath at rest He also complains to have chest pain with inspiration Denies any fever and/or chills, denies any nausea and/or vomiting Physical Exam 2 Vital Signs (Past 24 Hours): Last Vital Signs Temp 36.8 C 08/24/18 11:45 Pulse 99 H 08/24/18 11:45 Resp 18 08/24/18 11:45 BP 136/66 08/24/18 11:45 Pulse Ox 96 08/24/18 11:45 Physical Exam: Moderate shortness of breath at rest Constitutional: well developed, + acute distress (Minimal acute distress) and + ill appearing Eyes: PERRL, conjunctivae normal, anicteric sclerae ENMT: external ear and nose normal, oropharynx normal Respiratory: + respiratory distress and + uses accessory muscles Auscultation: + diminished lung sounds (More on the left than the right base) and + wheezes Cardiovascular: Rate/Rhythm: regular rate and regular rhythm Heart Sounds: normal S1 and normal S2 Gastrointestinal (Abdomen): Inspection/Auscultation: abdomen normal to inspection and normal bowel sounds Percussion/Palpation: abdomen soft Neurologic: Alert, awake and oriented x3. Results & Data Laboratory Results Short CBC 08/24/18 Range/Units 05:49 WBC 13.37 H (4.8-10.8) K/uL Hgb 9.0 L (14.0-18.0) g/dL Hct 28.6 L (42-52) % Plt Count 259 (130-400) K/uL BMP 08/23/18 08/24/18 12:37 05:49 Sodium 134 L 138 Potassium 4.7 4.7 Chloride 103 108 H Carbon Dioxide 26 25 BUN 41 H 45 H Creatinine 2.04 H 2.03 H Glucose 257 H 108 H Calcium 8.6 8.3 L Cardiac Enzymes 08/23/18 08/23/18 Range/Units 12:37 18:32 Total Creatine Kinase 35 L (39-308) U/L CK-MB (CK-2) 1.1 (0.5-3.6) ng/ml Troponin I < 0.015 0.019 (0-0.045) ng/ml Liver Function 08/23/18 Range/Units 12:37 Total Bilirubin 0.6 (0.2-1) mg/dl AST 31 (15-37) U/L ALT 44 (12-78) U/L Alkaline Phosphatase 67 (45-117) U/L Albumin 2.4 L (3.4-5.0) gm/dl Medications Administered Current Inpatient Medications Acetaminophen (Tylenol) 650 mg PO Q4H PRN PRN Reason: Pain or Fever Stop: 09/22/18 16:54 Aspirin (A[facility]in Chew) [facility] [place]: 09/23/18 08:59 Last Admin: 08/24/18 09:25 Dose: 81 mg Dextrose (Dextrose 50%) 25 - 50 ml IV UD PRN; Protocol PRN Reason: Hypoglycemia Protocol Stop: 09/22/18 16:54 Digoxin (Lanoxin) 0.125 mg PO DAILY@1600 [facility] Stop: 09/23/18 15:59 Glucagon (Glucagen) 1 mg SQ UD PRN; Protocol PRN Reason: Hypoglycemia Protocol Stop: 09/22/18 16:54 Glucose (Glucose 40%) 15 - 30 gm PO UD PRN; Protocol PRN Reason: Hypoglycemia Protocol Stop: 09/22/18 16:54 Glucose (Dex4 Glucose) 4 - 8 tabs PO UD PRN; Protocol PRN Reason: Hypoglycemia Protocol Stop: 09/22/18 16:54 Piperacillin Sod/Tazobactam (Sod 3.375 gm/ Dextrose) 115 mls @ 28.75 mls/hr IV Q8H [facility]; Protocol Stop: 08/30/18 19:59 Last Admin: 08/24/18 11:48 Dose: 28.8 mls/hr Insulin Aspart (Novolog Flexpen) 0 units SC ACHS [facility] Stop: 09/22/18 16:54 Last Admin: 08/24/18 11:46 Dose: 2 units Insulin Glargine (Lantus Solostar Pen) 10 units SC BID [facility] Stop: 09/22/18 20:59 Last Admin: 08/24/18 07:57 Dose: 10 units Levalbuterol HCl (Xopenex 0.63 Mg/3 Ml Neb) 0.63 mg NEB Q6R PRN PRN Reason: Shortness Of Breath Or Wheezing Stop: 09/22/18 16:54 Metoprolol Succinate (Toprol Xl) 12.5 mg PO [facility] Stop: 09/23/18 08:59 Last Admin: 08/24/18 07:58 Dose: 12.5 mg Miscellaneous (Carbohydrates For Hypoglycemia) 15 - 30 gm PO UD PRN PRN Reason: Hypoglycemia Treatment Stop: 09/22/18 16:54 Miscellaneous Information (Consult) 1 ea N/A UD PRN PRN Reason: Consult Stop: 09/22/18 16:54 Nitroglycerin (Nitrostat) 0.4 mg SL PRN PRN PRN Reason: Moderate Pain Stop: 09/22/18 12:43 Last Admin: 08/23/18 12:55 Dose: 0.4 mg Ondansetron HCl (Zofran) 4 mg IV Q6H PRN PRN Reason: Nausea Stop: 09/22/18 16:54 Polyethylene Glycol (Miralax Powder Packet) 17 gm PO DAILY PRN PRN Reason: Constipation Stop: 09/22/18 16:54 Simvastatin (Zocor) 20 [facility] [place]: 09/23/18 08:59 Last Admin: 08/24/18 07:58 Dose: 20 mg _ (1) Chest pain Chest pain type: unspecified Ischemic chest pain type: Qualified Code(s): R07.9 - Chest pain, unspecified (2) T2DM (type 2 diabetes mellitus) Diabetes mellitus intermodal customer service insulin use: without mcfp use Diabetes mellitus complication status: with kidney complications Diabetes mellitus complication detail: with chronic kidney disease Diabetic retinopathy severity : Proliferative retinopathy type: Diabetes mellitus macular edema: Laterality: Chronic kidney disease stage: stage 3 (moderate) Qualified Code(s ): E11.22 - Type 2 diabetes mellitus with diabetic chronic kidney disease; N18.3 - Chronic kidney disease, stage 3 (moderate) (3) HTN (hypertension) Hypertension type: essential hypertension Qualified Code(s): I10 - Essential (primary) hypertension (4) HLD (hyperlipidemia) Hyperlipidemia type: unspecified Qualified Code(s): E78.5 - Hyperlipidemia, unspecified (5) Anemia Anemia type: unspecified type Iron deficiency anemia type: Vitamin B12 deficiency anemia type: Folate deficiency anemia type: Bone marrow failure anemia type: Hemolytic anemia type: Other causes of anemia: Chronic kidney disease stage: Qualified Code(s): D64.9 - Anemia, unspecified
--- NOTE | 2018-08-24 15:43 | Anesthesiology Consultation ---
Date of Service August 24, 2018 Assessment & Plan (1) Encounter for pre-operative examination: Chart Review Chart Review: Acceptable Risk for Surgery and Patient NOT seen in Pre Admission Testing Consults Requested none History Surgery Operation Date: 08/25/18 13:00 Proposed Procedures p Left Thoracoscopy with Decortication - Rafael Alberts MD, FACS Height/Weight Height: 6 ft Weight: 83.9 kg Allergies Allergy/AdvReac Type Severity Reaction Status Date / Time No Known Allergies Allergy Mild Unverified 08/23/18 13:42 Medications Home Medications Medication Instructions Recorded Confirmed Last Taken acetaminophen [Tylenol Extra 1,000 mg PO UD 08/23/18 08/23/18 08/23/18 09:00 Strength] aspirin 81 mg PO QAM 08/23/18 08/23/18 08/23/18 digoxin 0.125 mg PO QAM 08/23/18 08/23/18 08/23/18 glipizide 10 mg PO BID 08/23/18 08/23/18 08/23/18 hydralazine 12.5 mg PO BID 08/23/18 08/23/18 08/23/18 metformin 850 mg PO BID 08/23/18 08/23/18 08/23/18 metoprolol succinate 12.5 mg PO QAM 08/23/18 08/23/18 08/23/18 simvastatin 20 mg PO QAM 08/23/18 08/23/18 08/23/18 tramadol 50 mg PO Q6H PRN 08/23/18 08/23/18 Unknown warfarin 2.5 mg PO 3XWK 08/23/18 08/23/18 08/22/18 warfarin 5 mg PO 4XWK 08/23/18 08/23/18 08/23/18 Active Medications Generic Name Dose Route Start Last Admin Trade Name Freq PRN Reason Stop Dose Admin Aspirin 81 mg 08/24/18 09:00 08/24/18 09:25 Aspirin Chew PO 09/23/18 08:59 81 mg QAM ABHILASH Administration Piperacillin Sod/Tazobactam 115 mls @ 28.75 mls/hr 08/23/18 20:00 08/24/18 11 :48 Sod 3.375 gm/ Dextrose IV 08/30/18 19:59 28.8 mls/hr Q8H ABHILASH Administration Protocol Insulin Aspart 0 units 08/23/18 16:55 08/24/18 11:46 Novolog Flexpen SC 09/22/18 16:54 2 units ACHS ABHILASH Administration Insulin Glargine 10 units 08/23/18 21:00 08/24/18 07:57 Lantus Solostar Pen SC 09/22/18 20:59 10 units BID ABHILASH Administration Metoprolol Succinate 12.5 mg 08/24/18 09:00 08/24/18 07:58 Toprol Xl PO 09/23/18 08:59 12.5 mg QAM ABHILASH Administration Nitroglycerin 0.4 mg 08/23/18 12:44 08/23/18 12:55 Nitrostat SL 09/22/18 12:43 0.4 mg PRN PRN Administration Moderate Pain Simvastatin 20 mg 08/24/18 09:00 08/24/18 07:58 Zocor PO 09/23/18 08:59 20 mg QAM ABHILASH Administration Past Surgical History Surgical History History of total right knee replacement (TKR) History of lumbar surgery 2012. [facility] (Dr. Blanc). MAC 4, DLx1. 8.0ETT. History of cataract extraction Social History Smoking Status: Former smoker tobacco type: cigarettes Smoking End Date: 30 years ago Hx Alcohol Use: No Hx Substance Use: No Physical Exam Vital Signs Last Vital Signs Temp 37.8 C H 08/24/18 15:27 Pulse 97 H 08/24/18 15:27 Resp 15 08/24/18 15:27 BP 133/69 08/24/18 15:27 Pulse Ox 93 08/24/18 15:27 ENMT Mouth: + poor dentition (Many missing teeth); no TMJ abnormality Thyromental Distance: > or= 3.5 Finger Breadths Mallampati Class: III Neck normal visual inspection and + facial hair Respiratory + cough; + abnormal respiratory effort Auscultation: + diminished lung sounds and + crackles Cardiovascular Rate/Rhythm: regular rate and regular rhythm Testing Electrocardiogram Date: 08/24/18 HR 101. Wide QRS rhythm Left axis deviation Right bundle branch block Abnormal ECG When compared with ECG of 23-AUG-2018 12:53, Wide QRS rhythm has replaced Atrial fibrillation Chest X-Ray Date: 08/23/18 FINDINGS: Cardiac silhouette is enlarged, unchanged. Calcification the thoracic aortic arch. Moderate sized left pleural effusion with lateral loculation. Left midlung and left basilar consolidative opacities. Bilateral pleural calcifications redemonstrated without pneumothorax. Mild chronic interstitial coarsening without overt pulmonary edema. Degenerative changes of the shoulders and spine. Healed fracture deformity about the mid right clavicle. IMPRESSION: 1. Moderate-sized left pleural effusion with left midlung and left basilar consolidation. 2. Cardiomegaly without overt pulmonary edema. 3. 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 Echocardiogram Date: 08/24/18 Moderate pulmonary hypertension with an estimated pulmonary artery pressure of 50mmHg. RV moderated dilated. RV systoic function moderated reduced. RA moderated dilated. Mod to severe TR. LV is normal in size. EF 55-60% LA is mildly dilated AV sclerosis, mild. Other Testing Chest CT 08/23/2018: IMPRESSION: 1. Moderate complex left pleural effusion with areas of probable pleural nodularity. Pulmonary consultation for consideration of a diagnostic thoracentesis is recommended in follow-up 2. Left lower lobe airspace opacities, likely representing compressive atelectasis 3. Extensive pleurodiaphragmatic calcifications raise the possibility of asbestos related disease 4. Enlarged multinodular thyroid goiter 5. Mild mediastinal lymphadenopathy 6. Dilatation of the ascending thoracic aorta which measures 45 mm Laboratory Results 08/24/18 05:49 08/24/18 05:49 PT 50.6 Seconds (9.0-12.0) H 08/24/18 05:49 INR 5.6 (0.9-1.1) H* 08/24/18 05:49 APTT 47.8 Seconds (21.0-31.0) H* 08/23/18 12:37 Hemoglobin A1c 7.2 % (4.5-5.6) H 08/24/18 05:49 08/24/18 08/24/18 11:22 07:35 POC Glucose 134 H 118 H
[2018-08-24] MEDS: DIGOXIN 0.125 MG TAB PO SCH (17:04)
--- NOTE | 2018-08-24 19:16 | Consultation Report ---
DATE OF CONSULTATION: 08/24/2018 REASON FOR CONSULTATION: Complex left pleural effusion. HISTORY OF PRESENT ILLNESS: Osmar Cortés is an 87-year-old male who looks much younger, who presents with pain across his upper back and upper chest from the left side with marked shortness of breath which has worsened over the last week or so. The patient's INR was 6.9 when he came in yesterday and is down to 5.6 today. He has decreased breath sounds on the left and a CT scan was obtained which shows a very complex effusion. It also has some calcifications. He is markedly symptomatic from this. I discussed this with Dr. Alonso. I do not believe there is any place for trying to drain this percutaneously. I have been asked to comment on this from a thoracic surgery standpoint. The patient states that his appetite has been poor for the last few weeks. He states he has lost about 10 pounds. He states the pain is a bit better. I have been asked to comment him on this fluid. PAST MEDICAL HISTORY: 1. Diabetes mellitus. 2. Hypertension. 3. Hyperlipidemia. 4. Chronic renal insufficiency 5. Atrial fibrillation. PAST SURGICAL HISTORY: 1. Right total knee replacement. 2. Lumbar discectomy. 3. Cataract extraction. MEDICATIONS: 1. Coumadin. 2. Aspirin. 3. Tramadol. 4. Digoxin. 5. Glipizide. 6. Simvastatin. 7. Metoprolol. 8. Metformin. 9. Hydralazine. ALLERGIES: He has no known drug allergies. SOCIAL HISTORY: The patient lives alone. His in 1998. He had 8 children total and has a good support system, although he does live alone. He was in the [facility] [employer] [facility] for 3 years and was stationed at [place], [place]. 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 The patient did smoke for about 20-25 years at about a pack a day. He does not use alcohol. He quit smoking 30 years ago. He is independent in his activities of daily living. He does have a significant other who spends time with him at home. REVIEW OF SYSTEMS: The patient states that he feels like he has lost about 10 pounds in the last month or so because he does not feel like eating. He denies nausea or vomiting. He has had no diarrhea. He has been quite short of breath. He does have a history of tachycardia and cardiomyopathy which has improved with control of his rate. He has worsening dyspnea on exertion and had this pain along his left chest that radiated to his back. He denies any productive cough. He has had no hemoptysis. He denies any skin breakdown. He has had no peripheral edema. He denies any visual or auditory symptoms. PHYSICAL EXAMINATION: GENERAL: This is a 6 foot, 180 pound male who is awake, alert and oriented. HEENT: His extraocular movements are intact. Sclerae are pale but anicteric. He has no upper teeth with a maxillary set of dentures. He does have a few teeth remaining on his mandibular area. He has no evidence of dental caries. Tongue is midline. NECK: Supple. I hear carotid bruits. He has no supraclavicular or cervical lymphadenopathy. He has no axillary adenopathy. LUNGS: He has decreased breath sounds on the left. He has an irregularly irregular rhythm of his heart. He is moving air well on the right with no rales. ABDOMEN: Soft, nontender. No surgical incisions. He has palpable dorsalis pedis pulses. He has no joint effusions. He has no skin breakdown. NEUROLOGIC: Cranial nerves II-XII are intact. He is alert and oriented. DATA: Reviewing his labs of note BUN on admission was 41 with a creatinine of 2.04. His white count was 17,010. His liver functions were fine. ASSESSMENT AND PLAN: Complex pleural process in the left chest. I agree with Dr. Alonso from pulmonary that I think tapping this would not be worthwhile. PLAN: We are going to correct his PT/INR and I am going to take him to the operating room tomorrow for a decortication and evacuation. We had a long talk about this and he is quite eager to have something done because he is so short of breath. We discussed his case with Dr. Ng, who will address his gapped INR.
--- NOTE | 2018-08-24 20:09 | Pulmonary Consultation ---
Date of Consultation August 24, 2018 Assessment & Plan (1) Chest pain: Impression: 1. Complex pleural effusion on the left, likely representing BAPE versus hemothorax. The possibility of mesothelioma cannot be excluded and the patient obviously with exposure to asbestos. 2. Substernal goiter extending towards the anterior mediastinum. 3. Compressive atelectasis of the left lower lobe. 4. Reactive small and sub-pathologic mediastinal lymph node. 5. Coagulopathy secondary to Coumadin, INR still 5.6. 6. History of A. fib. Plan: 1. Options of treatment including placement of chest thoracostomy tube versus VATS. I have discussed it with the patient and he elected to go for VATS. 2. Consult Dr. Alberts, VATS would be a better option. 3. Evaluation for mesothelioma as well as BAPE. 4. Appreciate Dr. Alberts input. No further recommendations from pulmonary, we will follow as needed. Chest pain type: unspecified Ischemic chest pain type: Qualified Code(s): R07.9 - Chest pain, unspecified History of Present Illness Reason for Consultation: Pleural effusion. Requesting Physician: Dr. Ng. Attending Physician: Hansa Ng MD History of Present Illness Dear Dr. Ng: Thank you for your kind referral Mrs. Cortés to pulmonary service. This is 87- year-old gentleman with a history of A. fib, has been maintained on Coumadin, history of coronary artery disease, congestive heart failure, diabetes, presented to the hospital with chest pain mainly in the left side has been persistent for the past several days. The patient had level of dyspnea on exertion. He had also swelling in his lower extremities but has not been increasing. No recent fall. He did not have dizziness or near syncopal episode. Denies any skin changes and no recent falls. Neurologically he did not have any symptoms. No nausea or vomiting and no change in bowel movements. No melena or hematemesis, no hemoptysis or no hematochezia. No weight loss as well. The patient denies any asbestos exposure in the past, he was smoker but quit over 4 years ago. His family history does not contribute to his current illness. He does not recall having any surgery done on his chest cavity. Other surgical history as in the H&P Allergies Allergy/AdvReac Type Severity Reaction Status Date / Time No Known Allergies Allergy Mild Unverified 02/19/19 13:42 Home Medications Home Medications Medication Instructions Recorded Confirmed Type acetaminophen [Tylenol Extra 1,000 mg PO UD 08/23/18 08/23/18 History Strength] aspirin 81 mg PO QAM 08/23/18 08/23/18 History digoxin 0.125 mg PO QAM 08/23/18 08/23/18 History glipizide 10 mg PO BID 08/23/18 08/23/18 History hydralazine 12.5 mg PO BID 08/23/18 08/23/18 History metformin 850 mg PO BID 08/23/18 08/23/18 History metoprolol succinate 12.5 mg PO QAM 08/23/18 08/23/18 History simvastatin 20 mg PO QAM 08/23/18 08/23/18 History tramadol 50 mg PO Q6H PRN 08/23/18 08/23/18 History warfarin 2.5 mg PO 3XWK 08/23/18 08/23/18 History warfarin 5 mg PO 4XWK 08/23/18 08/23/18 History Patient History Medical History Anemia DEMPSEY (dyspnea on exertion) Pleural effusion, left T2DM (type 2 diabetes mellitus) Persistent atrial fibrillation HTN (hypertension) HLD (hyperlipidemia) CKD (chronic kidney disease) stage 3, GFR 30-59 ml/min Hx of polymyalgia rheumatica 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 Rechecking INR AM of 08/25/2018. If still elevated plan on administering FFP. Bifascicular block Surgical History History of total right knee replacement (TKR) History of lumbar surgery 2012. [facility] (Dr. Blanc). MAC 4, DLx1. 8.0ETT. History of cataract extraction Family History Other Family history non-contributory Social History marital status: Single Current Living Situation: Alone Current Living Situation Comment: Girlfriend (Edna) stays frequently Other Information That Helps Us Care for You: No Feels Safe at Home: Yes Safety Concerns: Feels Safe At This Time Smoking Status: Former smoker Tobacco Type: cigarettes Smoking End Date: 30 years ago Hx Alcohol Use: No Hx Substance Use: No Beliefs That Will Affect Care: None Communication Ability: Effective Physical Exam 2 Vital Signs (Past 24 Hours): Last Vital Signs Temp 37.7 C H 08/24/18 19:45 Pulse 104 H 08/24/18 19:45 Resp 18 08/24/18 19:45 BP 124/67 08/24/18 19:45 Pulse Ox 92 08/24/18 19:45 Physical Exam: Vital signs are stable, O2 saturation 92% on room air, S1-S2, A. fib, diminished breath sounds in the left base. Abdomen is benign, edema in the periphery. No pain in his calves. No swelling in his knees. No evidence of blood trace is in his oral cavity as well. Neurologically does not appear to be focal. Results & Data Laboratory Results Labs were noted, white count of 13, hematocrit of 28. His INR is down to 5.6. BUN and creatinine is 45 and 2.0. Diagnostic Findings CAT scan of the chest which I reviewed personally showed pleural effusion with multiple different attenuation likely representing multiple pockets versus hemothorax. With compressive atelectasis. Asbestos plaques were noted as well. Substernal goiter was noted. Small mediastinal lymphadenopathy.
[2018-08-25] MEDS: PIPERACILLIN/TAZOBACTAM 3.375 GM in DEXTROSE 5% 100 ML IV SCH ×3 (03:38→21:23)
[2018-08-25 04:11] LABS: Basophils # (auto) 0.01 K/uL (0-0.2); Basophils % (auto) 0.1 %; Eosinophils # (auto) 0.09 K/uL (0-0.5); Eosinophils % (auto) 0.8 %; Hematocrit (blood only) 27.5 % (42-52); Hemoglobin 8.8 g/dL (14.0-18.0); Immature Granulocytes # (auto) 0.04 K/uL (0.00-0.02); Immature Granulocytes % (auto) 0.3 %; Lymphocytes % (auto) 8.5 %; Mean Corpuscular Volume 90.2 fL (80-100); Mean Platelet Volume 9.6 fL (7.4-10.4); Monocytes # (auto) 1.26 K/uL (0.11-0.59); Monocytes % (auto) 10.7 %; Neutrophils # (auto) 9.41 K/uL (1.4-6.5); Neutrophils % (auto) 79.6 %; Platelet Count 278 K/uL (130-400); RDW Coefficient of Variation 14.1 % (11.5-14.5); RDW Standard Deviation 46.9 fL (36.4-46.3); Red Blood Count 3.05 M/uL (4.7-6.1); White Blood Count 11.81 K/uL (4.8-10.8)
[2018-08-25 04:19] LABS: INR 2.3 (0.9-1.1); Prothrombin Time 21.9 Seconds (9.0-12.0)
[2018-08-25 04:28] LABS: BUN Creatinine Ratio 20.1 (10-20); Calcium 8.3 mg/dl (8.5-10.1); Creatinine Clr Calc Pharmacy 25.1 ml/min; Est GFR (African American) 29.4; Est GFR (Non-African American) 25.4; Potassium 4.4 mmol/L (3.5-5.1)
[2018-08-25] MEDS: INSULIN ASPART 100 UNITS/ML 3 ML PEN SC SCH ×4 (08:10→21:18)
[2018-08-25] MEDS: INSULIN GLARGINE SOLOSTAR 100 UNITS/ML 3 ML PEN SC SCH ×2 (08:10→21:15)
[2018-08-25] MEDS ORDERED: SODIUM CHLORIDE 0.9% 250 ML IV PRN ×2 (08:23→18:20)
[2018-08-25] MEDS ORDERED: PHYTONADIONE 2.5 MG in SODIUM CHLORIDE 0.9% 50 ML IV ONE (09:00)
[2018-08-25] MEDS: ASPIRIN 81 MG CHEW PO SCH (11:17)
[2018-08-25] MEDS: METOPROLOL SUCC 25MG EXT REL TAB PO SCH (11:17)
[2018-08-25] MEDS: SIMVASTATIN 20 MG TAB PO SCH (11:17)
[2018-08-25] MEDS ORDERED: fentaNYL citrate 100 MCG/2 ML VIAL ONE ×5 (12:20→14:51)
--- NOTE | 2018-08-25 12:22 | History & Physical Bridge Note ---
Date of Service August 25, 2018 History & Physical Bridge Note I have examined the patient, reviewed the History & Physical and in the interval since the performance of the History & Physical I have noted the following changes of clinical significance: no changes noted
[2018-08-25 12:56] LABS: INR 1.7 (0.9-1.1); Prothrombin Time 17.2 Seconds (9.0-12.0)
[2018-08-25] MEDS ORDERED: SODIUM CHLORIDE 0.9% PF 50 ML VIAL ONE (13:00)
[2018-08-25] MEDS ORDERED: BUPIVACAINE 0.5 % 5 MG/1 ML MPF 30ML VIAL ONE (13:00)
[2018-08-25] MEDS ORDERED: BUPIVACAINE LIPOSOME 1.3% 266 MG/20 ML VIAL ONE (13:02)
[2018-08-25] MEDS ORDERED: fentaNYL citrate 100 MCG/2 ML VIAL IV PRN (13:09)
[2018-08-25] MEDS ORDERED: ATROPINE SULFATE 0.1 MG/ML 10ML SYR IV PRN (13:09)
[2018-08-25] MEDS ORDERED: ONDANSETRON INJ 2 MG/ML 2 ML VIAL IV PRN (13:09)
[2018-08-25] MEDS ORDERED: ePHEDrine sulfate 50 MG/ML AMP IV PRN (13:09)
[2018-08-25] MEDS ORDERED: HYDROmorphone INJ 2 MG/ML SYR/VIAL ONE (14:03)
[2018-08-25] MEDS ORDERED: PHENYLEPHRINE HCL 10 MG/ML VIAL ONE ×2 (14:34→16:03)
[2018-08-25] MEDS ORDERED: PROPOFOL IV EMULSION 10 MG/ML 20 ML VIAL IV ONE (14:34)
[2018-08-25] MEDS ORDERED: DEXAMETHASONE SOD INJ 4 MG/ML VIAL ONE (14:34)
[2018-08-25] MEDS ORDERED: LIDOCAINE HCL 2% 2 ML VIAL/AMP(20MG/ML) INFIL ONE (14:34)
[2018-08-25] MEDS ORDERED: ePHEDrine sulfate 50 MG/ML SYR ONE (14:34)
[2018-08-25] MEDS ORDERED: GLYCOPYRROLATE 0.2 MG/ML VIAL ONE (14:34)
[2018-08-25] MEDS ORDERED: ROCURONIUM BROMIDE 10 MG/ML 5 ML VIAL ONE (14:34)
[2018-08-25] MEDS ORDERED: ONDANSETRON INJ 2 MG/ML 2 ML VIAL ONE (14:34)
[2018-08-25] MEDS ORDERED: NEOSTIGMINE METHYLSULFATE 5 MG/5 ML SYR ONE (14:34)
[2018-08-25] MEDS ORDERED: ESMOLOL HCL INJ 10 MG/ML 10ML VIAL IV ONE (14:35)
[2018-08-25] MEDS ORDERED: CEFAZOLIN 2000MG 2,000 MG/15 ML SYR IV SCH (14:45)
--- NOTE | 2018-08-25 15:34 | Hospitalist Progress Note ---
Date of Service August 25, 2018 Assessment & Plan (1) Chest pain: DDX but not limited to: Pulm: PNA, empyema, abscess, transudative pleural effusion, infectious effusion, Cardiac: Pericarditis, pericardial tamponade, CHF , ACS, aortic dissection Pain is likely secondary to pleurisy secondary to pneumonia and effusion Consult pulmonology-appreciate input and recommendation Obtain CT scan chest without contrast given renal function Continue IV Zosyn for possible empyema and pneumonic effusion Check MRSA swab, if negative we will not implement MRSA coverage Doubt any ACS Echo of the heart: Moderate pulmonary hypertension, mild right ventricular dilatation with decreased right ventricular systolic function, mild to moderate left and right atrial dilatation, bicuspid aortic valve with regurgitation, mild aortic stenosis, EF of 55-60% Chest pain seems to be noncardiac in origin (2) Pleural effusion, left: Associated with chest pain with deep breathing Seems to be pneumonic effusion Appreciate thoracic surgery input and recommendation Status post left thoracotomy and decortication (3) DEMPSEY (dyspnea on exertion): Secondary to effusion (4) Persistent atrial fibrillation: -Rate controlled on metoprolol and digoxin, continue -Dig level 0.1 today -Warfarin for anticoagulation, INR 6.9, once evening (patient already took a dose this a.m.) -5 mg vitamin K given secondary to likely thoracentesis -Repeat INR in a.m. -INR remains high at 5.6 today -Put another dose of vitamin K this morning -Received 2 units of fresh frozen plasma this morning before the procedure -INR 1.7 at 11:00 Will continue-Coumadin as appropriate (5) T2DM (type 2 diabetes mellitus): -Unknown A1c, last noted in outpatient records 06/29/17 was 7.4 -Hold outpatient metformin and glipizide, would recommend discontinuing metformin as outpatient given current renal function -Lantus/NovoLog per protocol -A1c in a.m-7.2. (6) HTN (hypertension): -Blood pressure on low side, will hold home hydralazine -Continue metoprolol with parameters (7) HLD (hyperlipidemia): -Continue statin (8) CKD (chronic kidney disease) stage 3, GFR 30-59 ml/min: -Baseline creatinine 1.71.9 -BUN/creatinine today 41 and 2.04 -Follow BMP and avoid nephrotoxic agents -Patient on metformin as outpatient, would recommend discontinuing given current renal function -Creatinine 2.03 -Creatinine remains elevated ,more than 2 (9) Anemia: -H/H 10.0 and 31.4 -H/H in 01/2017 13.2 and 40 -Normocytic normochromic -Monitor CBC, may be secondary CKD stage III -Hemoglobin is 9 today (10) Elevated INR: -INR supratherapeutic at 6.9, hold Coumadin -Check PT/INR in a.m. -5 mg of vitamin K ordered secondary to likely thoracentesis -No signs or symptoms of current bleeding -INR 5.6 today 08/24 -We will monitor (11) DVT prophylaxis: -INR supratherapeutic at 6.9, hold Coumadin -Check PT/INR in a.m. Disposition: to be determined, case management consulted [facility]: [facility] Subjective This is a 87-year-old male with significant PMH of persistent A. 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 ED secondary to chest pain times 2-3 weeks. 08/24 The Patient Was Seen and Examined in Telemetry Unit He continues to have mild to moderate shortness of breath at rest He also complains to have chest pain with inspiration Denies any fever and/or chills, denies any nausea and/or vomiting 08/25 The patient was seen and examined in telemetry unit He still complains to have chest pain on breathing Denies any abdominal pain, nausea and/or vomiting Denies any fever and/or chills Physical Exam 2 Vital Signs (Past 24 Hours): Last Vital Signs Temp 36.9 C 08/25/18 12:54 Pulse 94 H 08/25/18 12:54 Resp 20 08/25/18 12:54 BP 162/76 H 08/25/18 12:54 Pulse Ox 92 08/25/18 12:54 Constitutional: well developed, + acute distress (Minimal acute distress) and + ill appearing Eyes: PERRL, conjunctivae normal, anicteric sclerae ENMT: external ear and nose normal, oropharynx normal Respiratory: + respiratory distress and + uses accessory muscles Auscultation: + diminished lung sounds (More on the left than the right base) and + wheezes Cardiovascular: Rate/Rhythm: regular rate and regular rhythm Heart Sounds: normal S1 and normal S2 Gastrointestinal (Abdomen): Inspection/Auscultation: abdomen normal to inspection and normal bowel sounds Percussion/Palpation: abdomen soft Neurologic: Alert, awake and oriented x3. Generally weak Results & Data Laboratory Results Short CBC 08/25/18 Range/Units 03:57 WBC 11.81 H (4.8-10.8) K/uL Hgb 8.8 L (14.0-18.0) g/dL Hct 27.5 L (42-52) % Plt Count 278 (130-400) K/uL BMP 08/25/18 03:57 Sodium 136 Potassium 4.4 Chloride 107 Carbon Dioxide 23 BUN 45 H Creatinine 2.23 H Glucose 103 H Calcium 8.3 L Medications Administered Current Inpatient Medications Acetaminophen (Tylenol) 650 mg PO Q4H PRN PRN Reason: Pain or Fever Stop: 09/22/18 16:54 Aspirin (Aspirin Chew) 81 mg PO QAM [facility] Stop: 09/23/18 08:59 Last Admin: 08/25/18 11:17 Dose: Not Given Atropine Sulfate (Atropine Sulfate) 0.5 mg IV Q1M PRN PRN Reason: PACU Use-HR<40 &/or Bradycardi Stop: 08/25/18 18:09 Dextrose (Dextrose 50%) 25 - 50 ml IV UD PRN; Protocol PRN Reason: Hypoglycemia Protocol Stop: 09/22/18 16:54 Digoxin (Lanoxin) 0.125 mg PO DAILY@1600 [facility] Stop: 09/23/18 15:59 Last Admin: 08/24/18 17:04 Dose: 0.125 mg Ephedrine Sulfate (Ephedrine Sulfate) 5 mg IV Q5M PRN PRN Reason: PACU Use Only-SBP<90 mmHg Stop: 08/25/18 18:09 Fentanyl Citrate (Fentanyl Citrate) 25 mcg IV Q5M PRN PRN Reason: PACU Use Only-Pain Stop: 08/25/18 18:10 Glucagon (Glucagen) 1 mg SQ UD PRN; Protocol PRN Reason: Hypoglycemia Protocol Stop: 09/22/18 16:54 Glucose (Glucose 40%) 15 - 30 gm PO UD PRN; Protocol PRN Reason: Hypoglycemia Protocol Stop: 09/22/18 16:54 Glucose (Dex4 Glucose) 4 - 8 tabs PO UD PRN; Protocol PRN Reason: Hypoglycemia Protocol Stop: 09/22/18 16:54 Piperacillin Sod/Tazobactam (Sod 3.375 gm/ Dextrose) 115 mls @ 28.75 mls/hr IV Q8H ABHILASH; Protocol Stop: 08/30/18 19:59 Last Infusion: 08/25/18 07:38 Dose: 28.75 mls/hr Sodium Chloride (Nss 250ml) 250 mls @ 15 mls/hr IV .[id number] PRN PRN Reason: For Transfusion Stop: 09/24/18 08:22 Cefazolin Sodium (Ancef 2000mg) 2,000 mg in 15 mls @ 3.75 mls/min IV ONCE ABHILASH; Protocol Stop: 08/26/18 14:44 Last Admin: 08/25/18 13:35 Dose: 3.75 mls/min Insulin Aspart (Novolog Flexpen) 0 units SC ACHS ABHILASH Stop: 09/22/18 16:54 Last Admin: 08/25/18 11:49 Dose: Not Given Insulin Glargine (Lantus Solostar Pen) 10 units SC BID ABHILASH Stop: 09/22/18 20:59 Last Admin: 08/25/18 08:10 Dose: Not Given Levalbuterol HCl (Xopenex 0.63 Mg/3 Ml Neb) 0.63 mg NEB Q6R PRN PRN Reason: Shortness Of Breath Or Wheezing Stop: 09/22/18 16:54 Metoprolol Succinate (Toprol Xl) 12.5 mg PO QAM ABHILASH Stop: 09/23/18 08:59 Last Admin: 08/25/18 11:17 Dose: Not Given Miscellaneous (Carbohydrates For Hypoglycemia) 15 - 30 gm PO UD PRN PRN Reason: Hypoglycemia Treatment Stop: 09/22/18 16:54 Miscellaneous Information (Consult) 1 ea N/A UD PRN PRN Reason: Consult Stop: 09/22/18 16:54 Nitroglycerin (Nitrostat) 0.4 mg SL PRN PRN PRN Reason: Moderate Pain Stop: 09/22/18 12:43 Last Admin: 08/23/18 12:55 Dose: 0.4 mg Ondansetron HCl (Zofran) 4 mg IV Q6H PRN PRN Reason: Nausea Stop: 09/22/18 16:54 Ondansetron HCl (Zofran) 4 mg IV ONCE PRN PRN Reason: PACU Use Only-Nausea/Vomiting Stop: 08/25/18 18:09 Polyethylene Glycol (Miralax Powder Packet) 17 gm PO DAILY PRN PRN Reason: Constipation Stop: 09/22/18 16:54 Simvastatin (Zocor) 20 mg PO QAM ABHILASH Stop: 09/23/18 08:59 Last Admin: 08/25/18 11:17 Dose: Not Given _ (1) Chest pain Chest pain type: unspecified Ischemic chest pain type: Qualified Code(s): R07.9 - Chest pain, unspecified (2) T2DM (type 2 diabetes mellitus) Diabetes mellitus skilled nursing insulin use: without skilled nursing use Diabetes mellitus complication status: with kidney complications Diabetes mellitus complication detail: with chronic kidney disease Diabetic retinopathy severity : Proliferative retinopathy type: Diabetes mellitus macular edema: Laterality: Chronic kidney disease stage: stage 3 (moderate) Qualified Code(s ): E11.22 - Type 2 diabetes mellitus with diabetic chronic kidney disease; N18.3 - Chronic kidney disease, stage 3 (moderate) (3) HTN (hypertension) Hypertension type: essential hypertension Qualified Code(s): I10 - Essential (primary) hypertension (4) HLD (hyperlipidemia) Hyperlipidemia type: unspecified Qualified Code(s): E78.5 - Hyperlipidemia, unspecified (5) Anemia Anemia type: unspecified type Iron deficiency anemia type: Vitamin B12 deficiency anemia type: Folate deficiency anemia type: Bone marrow failure anemia type: Hemolytic anemia type: Other causes of anemia: Chronic kidney disease stage: Qualified Code(s): D64.9 - Anemia, unspecified
--- NOTE | 2018-08-25 16:57 | Post Operative Brief Note ---
Immediate Post Op Note v1 Date of Surgery August 25, 2018 Pre & Post Diagnosis Operation Date: 08/25/18 13:00 Pre-Op Diagnosis: Left complicated pleural effusion Post-Op Diagnosis: Left complicated pleural effusion Procedure Operation Date: 08/25/18 13:00 Actual Procedures p Left Thoracoscopy with Extensive Decortication and partial Pleurectomy(Left) - Rafael Alberts MD, FACS Surgeon Rafael Alberts MD, FACS Infrastructure Manager Dali FERGUSON Estimated Blood Loss 150 Findings Consistent with Post-Op Diagnosis Drains Chest Tube, B[place] Catheter and PleurX Catheter
[2018-08-25] MEDS ORDERED: METOCLOPRAMIDE HCL INJ 5 MG/ML 2 ML VIAL IV ONE (17:15)
--- NOTE | 2018-08-25 17:25 | XRay Report ---
XR chest 1V portable CLINICAL HISTORY: decortication COMPARISON STUDY: August 23, 2018 FINDINGS: Postsurgical changes are present on the left. There are 3 left-sided chest tubes present. T here is mild left-sided volume loss. There are calcified pleural plaques present. There is left-sided pleural thickening. There is decreased left pleural fluid. There are diffuse left lung airspace opac ities. There is no pneumothorax.[ IMPRESSION: No evidence of pneumothorax status post left pleural decortication. There is left lung vo lume loss, pleural thickening, and diffuse left lung airspace opacities. There are 3 left-sided chest tubes. There is no pneumothorax Electronically signed by: Jordan Peña M.D. 08/25/2018 5:23 PM
[2018-08-25 18:04] LABS: Hematocrit (blood only) 23.7 % (42-52); Hemoglobin 7.5 g/dL (14.0-18.0)
--- NOTE | 2018-08-25 18:39 | Anesthesiology Progress Note ---
Date of Service August 25, 2018 Anesthesia Post Procedure Vital Signs Vital Signs: Temp Pulse Pulse Pulse Resp BP BP 08/25/18 18:30 81 19 08/25/18 18:20 72 15 102/40 L 08/25/18 18:10 70 20 111/34 L 08/25/18 18:00 76 17 112/45 L 08/25/18 17:50 71 19 102/45 L 08/25/18 17:40 66 21 108/61 08/25/18 17:30 77 20 103/49 L 08/25/18 17:20 65 22 104/48 L 08/25/18 17:11 36.1 C L 81 22 98/50 L 08/25/18 12:54 36.9 C 94 H 20 08/25/18 12:49 37 C 86 20 159/64 H 08/25/18 12:25 37 C 92 H 20 146/71 H 08/25/18 12:10 37 C 82 19 150/66 H 08/25/18 11:56 37.0 C 76 20 164/71 H 08/25/18 11:39 37 C 72 20 146/66 H 08/25/18 11:34 37 C 73 18 146/66 H 08/25/18 11:06 36.9 C 76 19 136/62 08/25/18 10:35 36.9 C 82 19 145/64 H 08/25/18 10:24 97 H 08/25/18 10:18 37.2 C 79 20 127/61 08/25/18 09:57 37.3 C 84 20 132/59 L 08/25/18 07:37 36.5 C 104 H 18 08/25/18 03:25 36.8 C 93 H 17 08/25/18 00:00 100 H 08/24/18 23:38 37.0 C 95 H 18 08/24/18 19:45 37.7 C H 104 H 18 BP BP Pulse Ox 08/25/18 18:30 98/48 L 93 08/25/18 18:20 107/50 L 92 08/25/18 18:10 109/52 L 90 08/25/18 18:00 110/43 L 92 08/25/18 17:50 99/44 L 96 08/25/18 17:40 118/45 L 100 02/21/19 17:30 86/37 L 96 08/25/18 17:20 106/31 L 98 08/25/18 17:11 97 08/25/18 12:54 162/76 H 92 08/25/18 12:49 94 08/25/18 12:25 94 08/25/18 12:10 94 08/25/18 11:56 95 08/25/18 11:39 94 08/25/18 11:34 94 08/25/18 11:06 95 08/25/18 10:35 94 08/25/18 10:24 08/25/18 10:18 93 08/25/18 09:57 93 08/25/18 07:37 131/69 96 08/25/18 03:25 126/67 92 08/25/18 00:00 08/24/18 23:38 119/61 90 08/24/18 19:45 124/67 92 Pain Intensity Left Chest: Pain Intensity: 4 Notes Mental Status: alert / awake / arousable and participated in evaluation Nausea / Vomiting: adequately controlled Pain: adequately controlled Airway Patency, RR, SpO2: stable & adequate BP & HR: stable & adequate Hydration State: stable & adequate Anesthetic Complications: no major complications apparent and Pt Satisfied with anesthetic care Notes: The patient is as 87 y/o with a complex medical history including ischemic cardiomyopathy, DM, atrial fibrillation, CKD, Anemia, pleural effusion s/p L VATS with decortication and partial Pleurectomy with Dr. Alberts. The patient did require a neosynephrine drip intraoperatively to maintain his BPs in the 110s/60s. He was given a total of 1300cc LR intraoperatively, EBL 200cc and urine output 250cc. The patient was extubated without difficulty and taken to recovery. In recovery, the patient maintained his BPs in the low 100s/40s HR 70s without any vasopressors. He was given an additional 700cc of cyrstalloid. The patient 's starting Hgb was 8.8 and a repeat one done in recovery was 7.5. I informed Dr. Alberts and he was agreeable to transfusing 1 U PRBC. The patient will be transferred to telemetry for close monitoring.
[2018-08-25] MEDS: DIGOXIN 0.125 MG TAB PO SCH (20:58)
[2018-08-25] MEDS: ACETAMINOPHEN 1,000 MG/100 ML VIAL IV SCH (21:01)
[2018-08-25] MEDS: SODIUM CHLORIDE 0.9% 1000ML 1,000 ML IV SCH (21:13)
[2018-08-25] MEDS: DOCUSATE SODIUM 100 MG CAP PO SCH (21:16)
[2018-08-25 22:06] LABS: Hematocrit (blood only) 27.7 % (42-52); Hemoglobin 9.1 g/dL (14.0-18.0)
[2018-08-25] MEDS: METOCLOPRAMIDE HCL INJ 5 MG/ML 2 ML VIAL IV SCH (22:11)
--- NOTE | 2018-08-26 00:01 | Operative Report ---
DATE OF OPERATION: 08/25/2018 PREOPERATIVE DIAGNOSIS: Complicated left pleural effusion. POSTOPERATIVE DIAGNOSIS: Complicated left pleural effusion. PROCEDURES: 1. Left thoracoscopy with evacuation of pleural contents. 2. Extensive decortication of left upper lobe and left lower lobe. 3. Partial pleurectomy. SURGEON: Rafael Alberts MD RFID SPECIALIST: PHYLLIS Pacheco ( Alonzo was present for the entire case and was instrumental in assisting with holding the scope). ANESTHESIA: General anesthesia with endotracheal intubation using double lumen tube. SPECIFICS OF PROCEDURE AND FINDINGS: Mr. Cortés is an 87-year-old male who has been quite short of breath in the last several weeks and also has had lack of appetite. When he presented to the hospital, his INR was over 10. It was quite concerning as his CT scan showed a complicated effusion. Dr. Alonso yarn weigher too evaluated this via ultrasound and saw it was quite complicated and did not feel like chest tube alone was going to be helpful. In addition, he had obvious pleural thickening. I suspect that this is going to be difficult. I discussed this with the patient on 3 separate occasions. On the afternoon of 08/25/2018, brought the patient to the operating room and did an uncomplicated left thoracoscopy. I did an extensive decortication. I also did a partial pleurectomy on very thickened parietal pleura. His left lower lobe in particular was trapped and I removed plaque of the pleural peel quite meticulously. He really did not lose much blood. We did take down some adhesions. He tolerated it well, was extubated in the room. Blood loss was negligible. DESCRIPTION OF PROCEDURE: The patient was brought to operating room and laid in supine position. General anesthesia induced and endotracheal intubation was performed with a double lumen tube. The patient was placed in right lateral decubitus position. Left chest prepped, draped in usual sterile fashion. Approximately just posterior to the scapula down to the scapular tip a 5 mm port was placed and I immediately put in a suction and suctioned out a couple 100 mL of bloody fluid. I then placed a 5 mm 30-degree scope and we could see that there was what appeared to have been debris and perhaps some old clot. Another 5 mm port was placed anterior and then a 12-mm port was placed inferiorly above the diaphragm in a couple of centimeters in the mid axillary line. Through these 3 ports, we began breaking up adhesions and taking down and taking out all of the debris. This was sent off to the lab. We also sent it for culture. We also sent fluid for cytology. We drained over a liter of old bloody fluid. The lung was quite trapped in and had thick peel especially in the lower lobe. Starting at the diaphragm, it was very difficult to get the lung off of the diaphragm. We finally were able to do this and the base was fairly spared of a peel. We then peeled it medially and posteriorly and I was finally able to get a leading edge and I began peeling this upward and I went all the way to the fissure and actually into the fissure. Anteriorly, we also went and opened the lingula and took an extensive amount of pleural fibrous peel off of the visceral surface going up to the upper lobe. We spent quite a bit of time doing this. We did not get much in the way of lung injuries. He also had very thick plaque and I removed some of this both anteriorly and posteriorly and sent this to the lab. We removed some of this and it was quite thickened and had been raised when we placed the ports. A 266 mg of Exparel mixed, 250 mL normal saline, 30 mL of 0.25% Marcaine injected from the second to the eleventh rib. In the interspace, it had been a bit difficult because of pleural thickening to identify, but we were able to do this. I then placed a PleurX catheter into the left along the posterior and diaphragmatic gutter. I placed a 24 [place] chest tube anteriorly to the anterior thoracostomy port and sutured in place with heavy silk suture. I placed another 28-[place] right angle chest tube posteriorly through the mid axillary line inferior incision. These were all sutured in place with heavy silk suture. A 4-0 Monocryl was used to close skin incisions. He tolerated it well with negligible blood loss. He was stable throughout the case. I attest to the content of the Intraoperative Record and any orders documented therein. Any exception s are noted below.
[2018-08-26] MEDS: ACETAMINOPHEN 1,000 MG/100 ML VIAL IV SCH (04:27)
[2018-08-26] MEDS: METOCLOPRAMIDE HCL INJ 5 MG/ML 2 ML VIAL IV SCH ×2 (04:27→12:08)
[2018-08-26] MEDS: PIPERACILLIN/TAZOBACTAM 3.375 GM in DEXTROSE 5% 100 ML IV SCH ×3 (04:42→19:31)
[2018-08-26 06:39] LABS: Basophils # (auto) 0.01 K/uL (0-0.2); Basophils % (auto) 0.1 %; Hematocrit (blood only) 26.3 % (42-52); Hemoglobin 8.8 g/dL (14.0-18.0); Immature Granulocytes # (auto) 0.04 K/uL (0.00-0.02); Immature Granulocytes % (auto) 0.3 %; Lymphocytes # (auto) 0.69 K/uL (1.2-3.4); Lymphocytes % (auto) 4.5 %; Mean Corpuscular Hgb Conc 33.5 g/dL (32-36); Mean Corpuscular Volume 89.2 fL (80-100); Mean Platelet Volume 10.1 fL (7.4-10.4); Monocytes # (auto) 0.83 K/uL (0.11-0.59); Monocytes % (auto) 5.4 %; Neutrophils # (auto) 13.75 K/uL (1.4-6.5); Neutrophils % (auto) 89.7 %; Platelet Count 267 K/uL (130-400); RDW Standard Deviation 46.2 fL (36.4-46.3); Red Blood Count 2.95 M/uL (4.7-6.1); White Blood Count 15.32 K/uL (4.8-10.8)
[2018-08-26 06:55] LABS: INR 2.9 (0.9-1.1); Prothrombin Time 27.4 Seconds (9.0-12.0)
[2018-08-26 07:09] LABS: Echinocytes 1+
[2018-08-26 07:14] LABS: BUN Creatinine Ratio 24.2 (10-20); Creatinine Clr Calc Pharmacy 23.9 ml/min; Est GFR (African American) 27.7; Est GFR (Non-African American) 23.9; Potassium 5.2 mmol/L (3.5-5.1)
[2018-08-26] MEDS: OXYCODONE HCL IR 5 MG TAB (IMMEDIATE RELEASE) PO PRN ×2 (07:43→15:13)
[2018-08-26] MEDS: INSULIN ASPART 100 UNITS/ML 3 ML PEN SC SCH ×5 (07:45→22:31)
--- NOTE | 2018-08-26 07:46 | XRay Report ---
XR chest 1V portable HISTORY: effusion COMPARISON: Chest 08/25/2018. FINDINGS: There are 3 left-sided chest tubes which are unchanged in position. Suspect a tiny left pne umothorax. Small left pleural effusion persists. Slight improved aeration within the left lung airspa ce opacities. Bibasilar calcified pleural plaques. The heart is stable in size. Suspect a small amoun t of pneumomediastinum, unchanged. IMPRESSION: 1. There are again noted 3 left-sided chest tubes which are unchanged in position. Small left pleural effusion persists. Suspect a tiny left pneumothorax. 2. There appears to be a small amount of pneumomediastinum, unchanged. 3. Improved aeration within the left lung. Electronically signed by: Riky Glynn M.D. 08/26/2018 7:45 AM
[2018-08-26] MEDS: INSULIN GLARGINE SOLOSTAR 100 UNITS/ML 3 ML PEN SC SCH ×2 (07:47→22:29)
[2018-08-26] MEDS: SIMVASTATIN 20 MG TAB PO SCH (07:49)
[2018-08-26] MEDS: METOPROLOL SUCC 25MG EXT REL TAB PO SCH (07:49)
[2018-08-26] MEDS: DOCUSATE SODIUM 100 MG CAP PO SCH ×2 (07:50→22:19)
[2018-08-26] MEDS: ASPIRIN 81 MG CHEW PO SCH (07:50)
--- NOTE | 2018-08-26 08:32 | Anesthesiology Progress Note ---
Date of Service August 26, 2018 Anesthesia Post Procedure Vital Signs Vital Signs: Temp Pulse Pulse Pulse Resp BP BP 08/26/18 07:12 36.6 C 72 19 112/68 08/26/18 06:25 36.5 C 69 23 116/62 08/26/18 04:25 36.5 C 70 18 114/69 08/26/18 04:00 36.4 C L 69 17 111/62 08/26/18 02:25 36.8 C 74 21 112/67 08/26/18 00:58 36.5 C 83 12 117/61 08/26/18 00:25 08/25/18 23:58 36.6 C 90 19 102/59 L 08/25/18 22:58 36.7 C 99 H 19 122/63 08/25/18 22:25 08/25/18 21:58 36.9 C 63 22 96/52 L 08/25/18 21:25 08/25/18 21:09 36.7 C 81 12 125/70 08/25/18 21:03 36.7 C 87 23 125/70 08/25/18 20:58 87 08/25/18 20:33 36.9 C 87 21 152/72 H 08/25/18 20:25 08/25/18 20:13 36.6 C 96 H 21 147/77 H 08/25/18 19:58 36.6 C 95 H 16 139/64 08/25/18 19:43 36.6 C 106 H 16 145/55 H 08/25/18 19:30 90 08/25/18 19:28 36.8 C 78 78 16 120/73 120/73 08/25/18 19:05 36.4 C L 81 81 22 119/54 L 08/25/18 18:50 36.7 C 84 84 20 120/48 L 08/25/18 18:40 36.7 C 71 18 08/25/18 18:30 81 19 08/25/18 18:20 72 15 102/40 L 08/25/18 18:10 70 20 111/34 L 08/25/18 18:00 76 17 112/45 L 08/25/18 17:50 71 19 102/45 L 08/25/18 17:40 66 21 108/61 08/25/18 17:30 77 20 103/49 L 08/25/18 17:20 65 22 104/48 L 08/25/18 17:11 36.1 C L 81 22 98/50 L 08/25/18 12:54 36.9 C 94 H 20 08/25/18 12:49 37 C 86 20 159/64 H 08/25/18 12:25 37 C 92 H 20 146/71 H 08/25/18 12:10 37 C 82 19 150/66 H 08/25/18 11:56 37.0 C 76 20 164/71 H 08/25/18 11:39 37 C 72 20 146/66 H 08/25/18 11:34 37 C 73 18 146/66 H 08/25/18 11:06 36.9 C 76 19 136/62 08/25/18 10:35 36.9 C 82 19 145/64 H 08/25/18 10:24 97 H 08/25/18 10:18 37.2 C 79 20 127/61 08/25/18 09:57 37.3 C 84 20 132/59 L BP BP Pulse Ox Pulse Ox Pulse Ox 08/26/18 07:12 94 08/26/18 06:25 96 96 08/26/18 04:25 96 98 08/26/18 04:00 97 08/26/18 02:25 96 97 08/26/18 00:58 96 08/26/18 00:25 97 97 08/25/18 23:58 97 08/25/18 22:58 97 08/25/18 22:25 95 08/25/18 21:58 95 08/25/18 21:25 95 08/25/18 21:09 100 08/25/18 21:03 97 08/25/18 20:58 08/25/18 20:33 96 08/25/18 20:25 92 08/25/18 20:13 93 08/25/18 19:58 91 08/25/18 19:43 91 08/25/18 19:30 08/25/18 19:28 93 08/25/18 19:05 119/54 L 93 08/25/18 18:50 120/48 L 91 08/25/18 18:40 101/53 L 92 08/25/18 18:30 98/48 L 93 08/25/18 18:20 107/50 L 92 08/25/18 18:10 109/52 L 90 08/25/18 18:00 110/43 L 92 08/25/18 17:50 99/44 L 96 08/25/18 17:40 118/45 L 100 08/25/18 17:30 86/37 L 96 08/25/18 17:20 106/31 L 98 08/25/18 17:11 97 08/25/18 12:54 162/76 H 92 08/25/18 12:49 94 08/25/18 12:25 94 08/25/18 12:10 94 08/25/18 11:56 95 08/25/18 11:39 94 08/25/18 11:34 94 08/25/18 11:06 95 08/25/18 10:35 94 08/25/18 10:24 08/25/18 10:18 93 08/25/18 09:57 93 Pain Intensity Left Chest: Pain Intensity: 4 Notes Mental Status: alert / awake / arousable and participated in evaluation Patient Amnestic to Procedure: Yes Nausea / Vomiting: adequately controlled Pain: adequately controlled Airway Patency, RR, SpO2: stable & adequate BP & HR: stable & adequate Hydration State: stable & adequate Anesthetic Complications: no major complications apparent and Pt Satisfied with anesthetic care
--- NOTE | 2018-08-26 09:00 | Progress Note ---
DATE: 08/26/2018 Mr. Cortés was seen today 1 day after an extensive decortication of his left lung. It appears to me this was probably old blood. He may have had a bleed due to his overanticoagulation. At any rate, we did send off a great deal of tissue for pathology and for culture. I am quite pleased with his x-ray. He has no air leak. He really has not drained much. He is draining serous fluid. He did drop his hemoglobin, however, I wonder if this may have been due to hemoconcentration when he came in. We really did not lose much blood and he has not drained much after surgery. Actually a bit concerning that he would be so anemic. At any rate, we are going to remove his [place] and send him up to the third floor today. It will be very important to get him up and ambulating. We will remove his chest tubes in the next day or so. His PleurX catheter will stay in for a bit longer.
[2018-08-26] MEDS ORDERED: ENOXAPARIN INJ 40 MG/0.4 ML SYR SQ SCH (10:30)
[2018-08-26] MEDS: ACETAMINOPHEN 325 MG TAB PO SCH ×2 (12:08→17:27)
--- NOTE | 2018-08-26 13:09 | Pharmacy Report ---
Pharmacy Glycemic Rec 1 - Date of Service August 26, 2018 - Scope Glycemic Pharmacist to provide recommendations to improve glycemic control (all ICU patients are screened for hyperglycemia and treatment recommendations are provided per protocol). Pt identified with hyperglycemia (BSG above 180) while [place] [facility] [facility] - Subjective The patient is a 87 year old M admitted on 08/24/18 16:28 for CHEST PAIN. Patient's past medical history is significant for type 2 diabetes mellitus. - Objective Accuchecks BSG (last 24hrs):: 08/25/18 08/25/18 08/26/18 17:18 19:45 06:08 Glucose 233 H POC Glucose 114 H 123 H 08/26/18 08/26/18 07:05 11:26 Glucose POC Glucose 239 H 326 H Laboratory Data (last 24hrs):: 08/26/18 08/26/18 06:08 06:08 WBC 15.32 H Sodium 135 L Potassium 5.2 H D Anion Gap 9.0 BUN 57 H Creatinine 2.34 H BUN/Creatinine Ratio 24.2 H - Recent Pertinent Medications Outpatient Anti-diabetic Regimen: * Glipizide 10mg BID * Metformin 850mg BID The patient is currently receiving: * Basal Insulin: Lantus 10 units every 12 hours * Correctional Insulin: Novolog Correction per scale ACHS Goal Range: Low 120 mg/dL - High 160 mg/dL Correction Factor: 45 mg/dL/unit * Prandial Insulin: Per carb ratio of 1 unit per 15 grams CHO consumed Risk Factors for Insulin Resistance: * Steroids: Dexamethasone 4mg IV given by Anesthesia yesterday afternoon * Infection: PNA vs empyema * Recent Surgery: POD # 1 s/p decortication - Assessment & Plan ASSESSMENT: * Patient's glycemic control had been acceptable prior to yesterday's procedure. I suspect dexamethasone IV is responsible for today's hyperglycemia * Effects of dexamethasone can be expected to last 24-36 hrs in most patients * Would recommend adjusting Novolog doses to allow for greater doses for the remainder of the day today as effects of dex may dissipate overnight RECOMMEND: * Continue Lantus 10 units SQ BID * Changing correction factor 20 mg/dl/unit for remainder for the day today, then return to 45mg/dL/unit tomorrow * Changing carb ratio 1 unit per 7 grams CHO consumed, then return to 1 unit per 15gm CHO tomorrow * Continuing goal range Low 120 mg/dL - High 160 mg/dL Pharmacy will continue to provide recommendations in EMR while patient admitted to 1E/2E. Physicians may request pharmacy to continue to follow patient when transferred out of the ICU and/or consult pharmacy to write glycemic control orders * Please note that the plan above was derived based on current level of insulin resistance and hospital stress. These recommendations are appropriate for inpatient admission only. Plan of care upon discharge will need to be reassessed to avoid potential outpatient hypo/hyperglycemia. Thank you.
--- NOTE | 2018-08-26 14:15 | Hospitalist Progress Note ---
Date of Service August 26, 2018 Assessment & Plan (1) Chest pain: DDX but not limited to: Pulm: PNA, empyema, abscess, transudative pleural effusion, infectious effusion, Cardiac: Pericarditis, pericardial tamponade, CHF , ACS, aortic dissection Pain is likely secondary to pleurisy secondary to pneumonia and effusion Consult pulmonology-appreciate input and recommendation Obtain CT scan chest without contrast given renal function Continue IV Zosyn for possible empyema and pneumonic effusion Check MRSA swab, if negative we will not implement MRSA coverage Doubt any ACS Echo of the heart: Moderate pulmonary hypertension, mild right ventricular dilatation with decreased right ventricular systolic function, mild to moderate left and right atrial dilatation, bicuspid aortic valve with regurgitation, mild aortic stenosis, EF of 55-60% Chest pain seems to be noncardiac in origin Denies any more chest pain today but has discomfort secondary to decortication and chest tube placement (2) Pleural effusion, left: Associated with chest pain with deep breathing Seems to be pneumonic effusion Appreciate thoracic surgery input and recommendation Status post left thoracotomy and decortication POD #1 following left lung decortication Draining serosanguineous fluid through the chest tube Clinically stable We will transfer the patient to medical floor (3) DEMPSEY (dyspnea on exertion): Likely has chronic diastolic heart failure Secondary to effusion (4) Persistent atrial fibrillation: -Rate controlled on metoprolol and digoxin, continue -Dig level 0.1 today -Warfarin for anticoagulation, INR 6.9, once evening (patient already took a dose this a.m.) -5 mg vitamin K given secondary to likely thoracentesis -Repeat INR in a.m. -INR remains high at 5.6 today -Put another dose of vitamin K this morning -Received 2 units of fresh frozen plasma this morning before the procedure -INR 1.7 at 11:00 Will continue-Coumadin as appropriate INR 2.1 today Will start Coumadin from tomorrow (5) T2DM (type 2 diabetes mellitus): -Unknown A1c, last noted in outpatient records 06/29/17 was 7.4 -Hold outpatient metformin and glipizide, would recommend discontinuing metformin as outpatient given current renal function -Lantus/NovoLog per protocol -A1c in a.m-7.2. Doses have been adjusted (6) HTN (hypertension): -Blood pressure on low side, will hold home hydralazine -Continue metoprolol with parameters (7) HLD (hyperlipidemia): -Continue statin (8) CKD (chronic kidney disease) stage 3, GFR 30-59 ml/min: -Acute kidney failure on CKD -Baseline creatinine 1.71.9 -BUN/creatinine today 41 and 2.04 -Follow BMP and avoid nephrotoxic agents -Patient on metformin as outpatient, would recommend discontinuing given current renal function -Creatinine 2.03 -Creatinine remains elevated ,more than 2 (9) Anemia: -H/H 10.0 and 31.4 -H/H in 01/2017 13.2 and 40 -Normocytic normochromic -Monitor CBC, may be secondary CKD stage III -Hemoglobin is 9 today (10) Elevated INR: -INR supratherapeutic at 6.9, hold Coumadin -Check PT/INR in a.m. -5 mg of vitamin K ordered secondary to likely thoracentesis -No signs or symptoms of current bleeding -INR 5.6 today 08/24 -We will monitor (11) DVT prophylaxis: -INR supratherapeutic at 6.9, hold Coumadin -Check PT/INR in a.m. Disposition: to be determined, case management consulted [facility] Subjective This is a 87-year-old male with significant PMH of persistent A. 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 08/24 The Patient Was Seen and Examined in Telemetry Unit He continues to have mild to moderate shortness of breath at rest He also complains to have chest pain with inspiration Denies any fever and/or chills, denies any nausea and/or vomiting 08/25 The patient was seen and examined in telemetry unit He still complains to have chest pain on breathing Denies any abdominal pain, nausea and/or vomiting Denies any fever and/or chills 08/26 The patient was seen and examined in telemetry He is a status post #1 day after an extensive decortication of his left lung. Clinically stable Physical Exam 2 Vital Signs (Past 24 Hours): Last Vital Signs Temp 36.4 C L 08/26/18 11:00 Pulse 63 08/26/18 11:00 Resp 22 08/26/18 11:00 BP 107/62 08/26/18 11:00 Pulse Ox 95 08/26/18 11:00 Physical Exam: Out of bed on a chair without any significant distress Constitutional: well developed, + acute distress (Minimal acute distress) and + ill appearing Eyes: PERRL, conjunctivae normal, anicteric sclerae ENMT: external ear and nose normal, oropharynx normal Respiratory: + respiratory distress and + uses accessory muscles Auscultation: + diminished lung sounds (More on the left than the right base) and + wheezes Has chest tube placed on the left side-draining serosanguineous fluid Cardiovascular: Rate/Rhythm: regular rate and regular rhythm Heart Sounds: normal S1 and normal S2 Gastrointestinal (Abdomen): Inspection/Auscultation: abdomen normal to inspection and normal bowel sounds Percussion/Palpation: abdomen soft Neurologic: Alert, awake and oriented x3 Results & Data Laboratory Results Short CBC 08/25/18 08/25/18 08/26/18 Range/Units 17:56 21:59 06:08 WBC 15.32 H (4.8-10.8) K/uL Hgb 7.5 L 9.1 L 8.8 L (14.0-18.0) g/dL Hct 23.7 L 27.7 L 26.3 L (42-52) % Plt Count 267 (130-400) K/uL BMP 08/26/18 06:08 Sodium 135 L Potassium 5.2 H D Chloride 104 Carbon Dioxide 22 BUN 57 H Creatinine 2.34 H Glucose 233 H Calcium 8.0 L Medications Administered Current Inpatient Medications Acetaminophen (Tylenol) 650 mg PO Q6 [facility] Stop: 09/25/18 11:59 Last Admin: 08/26/18 12:08 Dose: 650 mg Aspirin (Aspirin Chew) 81 mg PO QAM [facility] Stop: 09/23/18 08:59 Last Admin: 08/26/18 07:50 Dose: 81 mg Dextrose (Dextrose 50%) 25 - 50 ml IV UD PRN; Protocol PRN Reason: Hypoglycemia Protocol Stop: 09/22/18 16:54 Digoxin (Lanoxin) 0.125 mg PO DAILY@1600 [facility] Stop: 09/23/18 15:59 Last Admin: 08/25/18 20:58 Dose: 0.125 mg Docusate Sodium (Colace) 100 mg PO BID [facility] Stop: 09/24/18 20:59 Last Admin: 08/26/18 07:50 Dose: 100 mg Glucagon (Glucagen) 1 mg SQ UD PRN; Protocol PRN Reason: Hypoglycemia Protocol Stop: 09/22/18 16:54 Glucose (Glucose 40%) 15 - 30 gm PO UD PRN; Protocol PRN Reason: Hypoglycemia Protocol Stop: 09/22/18 16:54 Glucose (Dex4 Glucose) 4 - 8 tabs PO UD PRN; Protocol PRN Reason: Hypoglycemia Protocol Stop: 09/22/18 16:54 Piperacillin Sod/Tazobactam (Sod 3.375 gm/ Dextrose) 115 mls @ 28.75 mls/hr IV Q8H [facility]; Protocol Stop: 08/30/18 19:59 Last Admin: 08/26/18 12:07 Dose: 28.8 mls/hr Cefazolin Sodium (Ancef 2000mg) 2,000 mg in 15 mls @ 3.75 mls/min IV ONCE [facility]; Protocol Stop: 08/26/18 14:44 Last Admin: 08/25/18 13:35 Dose: 3.75 mls/min Sodium Chloride (Nss 250ml) 250 mls @ 15 mls/hr IV .[id number] PRN PRN Reason: For Transfusion Stop: 09/24/18 18:19 Insulin Aspart (Novolog Flexpen) [address] [facility] Stop: 08/26/18 23:59 Last Admin: 08/26/18 12:09 Dose: 7 units Insulin Aspart (Novolog Flexpen) 0 units SC ACHS [facility] Stop: 09/26/18 07:29 Insulin Glargine (Lantus Solostar Pen) 10 units SC BID [facility] Stop: 09/22/18 20:59 Last Admin: 08/26/18 07:47 Dose: 10 units Levalbuterol HCl (Xopenex 0.63 Mg/3 Ml Neb) 0.63 mg NEB Q6R PRN PRN Reason: Shortness Of Breath Or Wheezing Stop: 09/22/18 16:54 Metoprolol Succinate (Toprol Xl) 12.5 mg PO QAM [facility] Stop: 09/23/18 08:59 Last Admin: 08/26/18 07:49 Dose: 12.5 mg Miscellaneous (Carbohydrates For Hypoglycemia) 15 - 30 gm PO UD PRN PRN Reason: Hypoglycemia Treatment Stop: 09/22/18 16:54 Miscellaneous Information (Consult) 1 ea N/A UD PRN PRN Reason: Consult Stop: 09/22/18 16:54 Morphine Sulfate (Morphine Sulfate) 1 - 2 mg IV Q1H PRN PRN Reason: Pain Stop: 09/08/18 19:24 Nitroglycerin (Nitrostat) 0.4 mg SL PRN PRN PRN Reason: Moderate Pain Stop: 09/22/18 12:43 Last Admin: 08/23/18 12:55 Dose: 0.4 mg Ondansetron HCl (Zofran) 4 mg IV Q6H PRN PRN Reason: Nausea Stop: 09/22/18 16:54 Last Admin: 08/26/18 07:44 Dose: 4 mg Oxycodone HCl (Roxicodone Immediate Rel) 5 mg PO Q6H PRN PRN Reason: Pain Stop: 09/08/18 19:24 Last Admin: 08/26/18 07:43 Dose: 5 mg Polyethylene Glycol (Miralax Powder Packet) 17 gm PO DAILY PRN PRN Reason: Constipation Stop: 09/22/18 16:54 Simvastatin (Zocor) 20 mg PO QAM [facility] Stop: 09/23/18 08:59 Last Admin: 08/26/18 07:49 Dose: 20 mg _ (1) Chest pain Chest pain type: unspecified Ischemic chest pain type: Qualified Code(s): R07.9 - Chest pain, unspecified (2) T2DM (type 2 diabetes mellitus) Diabetes mellitus mcc insulin use: without light rail operator use Diabetes mellitus complication status: with kidney complications Diabetes mellitus complication detail: with chronic kidney disease Diabetic retinopathy severity : Proliferative retinopathy type: Diabetes mellitus macular edema: Laterality: Chronic kidney disease stage: stage 3 (moderate) Qualified Code(s ): E11.22 - Type 2 diabetes mellitus with diabetic chronic kidney disease; N18.3 - Chronic kidney disease, stage 3 (moderate) (3) HTN (hypertension) Hypertension type: essential hypertension Qualified Code(s): I10 - Essential (primary) hypertension (4) HLD (hyperlipidemia) Hyperlipidemia type: unspecified Qualified Code(s): E78.5 - Hyperlipidemia, unspecified (5) Anemia Anemia type: unspecified type Iron deficiency anemia type: Vitamin B12 deficiency anemia type: Folate deficiency anemia type: Bone marrow failure anemia type: Hemolytic anemia type: Other causes of anemia: Chronic kidney disease stage: Qualified Code(s): D64.9 - Anemia, unspecified
[2018-08-26] MEDS: DIGOXIN 0.125 MG TAB PO SCH (15:14)
[2018-08-26] MEDS: MoRPHine SULFATE 4 MG/ML 1 ML CARP\\VIAL IV PRN (16:43)
[2018-08-26] MEDS: SODIUM CHLORIDE 0.9% 1000ML 1,000 ML IV SCH (19:19)
[2018-08-27] MEDS: ACETAMINOPHEN 325 MG TAB PO SCH ×5 (01:27→23:49)
[2018-08-27] MEDS: OXYCODONE HCL IR 5 MG TAB (IMMEDIATE RELEASE) PO PRN ×2 (01:28→08:17)
[2018-08-27] MEDS: PIPERACILLIN/TAZOBACTAM 3.375 GM in DEXTROSE 5% 100 ML IV SCH ×3 (04:54→20:29)
[2018-08-27] MEDS: MoRPHine SULFATE 4 MG/ML 1 ML CARP\\VIAL IV PRN (04:58)
[2018-08-27] MEDS ORDERED: INSULIN ASPART 100 UNITS/ML 3 ML PEN SC SCH (07:30)
--- NOTE | 2018-08-27 07:38 | XRay Report ---
XR chest 1V portable HISTORY: 87 years-old Male decortication status post surgery of the left lung COMPARISON: Chest radiograph 08/26/2018 TECHNIQUE: Portable AP view of the chest FINDINGS: 3 left-sided chest tubes appear unchanged in positioning. Postoperative changes of the left lung. A d iscrete left-sided pneumothorax is not definitively seen. Small amount of pneumomediastinum is unchan ged. Persistent small left pleural effusion with persistent multifocal left lung opacities. Scattered ill-defined opacities also noted about the right lung. Degenerative changes of the shoulders and spi ne. Calcification the thoracic aortic arch. IMPRESSION: 1. Stable positioning of 3 left-sided chest tubes. No definite left-sided pneumothorax identified. 2. Small left pleural effusion with multifocal left lung opacities redemonstrated. 3. Trace pneumomediastinum, unchanged. The above report was generated using voice recognition software. It may contain grammatical, syntax o r spelling errors. Electronically signed by: Rohan Jeffrey M.D. 08/27/2018 7:37 AM
[2018-08-27] MEDS: INSULIN ASPART 100 UNITS/ML 3 ML PEN SC SCH ×4 (08:13→21:30)
[2018-08-27] MEDS: DOCUSATE SODIUM 100 MG CAP PO SCH ×2 (08:14→21:29)
[2018-08-27] MEDS: ASPIRIN 81 MG CHEW PO SCH (08:14)
[2018-08-27] MEDS: SIMVASTATIN 20 MG TAB PO SCH (08:14)
[2018-08-27] MEDS: METOPROLOL SUCC 25MG EXT REL TAB PO SCH (08:14)
[2018-08-27] MEDS: INSULIN GLARGINE SOLOSTAR 100 UNITS/ML 3 ML PEN SC SCH ×2 (08:18→21:30)
--- NOTE | 2018-08-27 08:33 | XRay Report ---
XR chest 1V portable HISTORY: 87 years-old Male tube removal status post left chest tube removal COMPARISON: Chest radiograph of same day at 6:47 AM TECHNIQUE: Portable AP view of the chest FINDINGS: Postoperative changes of the left lung. Status post removal of the lateral left apical chest tube. Th e remaining 2 left-sided chest tubes remain stable. Minimal subcutaneous emphysema about the lateral left chest wall. Trace pneumomediastinum. No definite pneumothorax. Small left pleural effusion with persistent left greater the right opacities. Right hemidiaphragmatic calcifications. Mild cardiomegal y. Calcification the thoracic aortic arch. Degenerative changes of the shoulders and spine. IMPRESSION: 1. Status post removal of the lateral left apical chest tube. No definite pneumothorax identified. 2. Unchanged trace pneumomediastinum. 3. Postoperative changes of the left lung with stable positioning of the two remaining left-sided jacinta st tubes. 4. Small left pleural effusion with persistent left lung opacities. The above report was generated using voice recognition software. It may contain grammatical, syntax o r spelling errors. Electronically signed by: Rohan Jeffrey M.D. 08/27/2018 8:32 AM
--- NOTE | 2018-08-27 08:59 | Surgery Progress Note ---
Date of Service August 27, 2018 Assessment & Plan (1) Pleural effusion, left: pt. is s/p left VATS with decortication -as straight chest tube has minimal drainage, this was removed this morning -will keep right angle tube and pleurex catheter in place or now -ambulation has been encouraged -hold coumadin for now -once INR <2.0 will plan on using lovenox for DVT prevention Subjective Pt. notes his breathing feels better since surgery. He has pain from chest tubes that is worse when he coughs. Physical Exam 2 Vital Signs (Past 24 Hours): Last Vital Signs Temp 36.5 C 08/27/18 07:30 Pulse 72 08/27/18 07:30 Resp 26 H 08/27/18 07:30 BP 140/69 08/27/18 07:30 Pulse Ox 91 08/27/18 07:30 Physical Exam: chest tube examined--no air leak Constitutional: well developed and well nourished Respiratory: no respiratory distress and no labored breathing BS are decreased at left base
[2018-08-27 09:06] LABS: Basophils # (auto) 0.01 K/uL (0-0.2); Basophils % (auto) 0.1 %; Eosinophils # (auto) 0.15 K/uL (0-0.5); Eosinophils % (auto) 0.9 %; Hematocrit (blood only) 27.3 % (42-52); Hemoglobin 8.8 g/dL (14.0-18.0); Immature Granulocytes # (auto) 0.06 K/uL (0.00-0.02); Immature Granulocytes % (auto) 0.4 %; Lymphocytes # (auto) 1.03 K/uL (1.2-3.4); Lymphocytes % (auto) 6.3 %; Mean Corpuscular Hgb Conc 32.2 g/dL (32-36); Mean Corpuscular Volume 90.1 fL (80-100); Mean Platelet Volume 9.4 fL (7.4-10.4); Monocytes # (auto) 1.09 K/uL (0.11-0.59); Monocytes % (auto) 6.6 %; Neutrophils # (auto) 14.08 K/uL (1.4-6.5); Neutrophils % (auto) 85.7 %; Platelet Count 316 K/uL (130-400); RDW Coefficient of Variation 14.1 % (11.5-14.5); RDW Standard Deviation 46.9 fL (36.4-46.3); Red Blood Count 3.03 M/uL (4.7-6.1); White Blood Count 16.42 K/uL (4.8-10.8)
[2018-08-27 09:27] LABS: Prothrombin Time 49.6 Seconds (9.0-12.0)
[2018-08-27 09:30] LABS: INR 5.5 (0.9-1.1)
[2018-08-27 09:48] LABS: BUN Creatinine Ratio 24.8 (10-20); Calcium 8.6 mg/dl (8.5-10.1); Creatinine Clr Calc Pharmacy 25.4 ml/min; Est GFR (African American) 29.7; Est GFR (Non-African American) 25.6; Potassium 4.5 mmol/L (3.5-5.1)
[2018-08-27 10:00] LABS: Echinocytes 1+
[2018-08-27] MEDS ORDERED: PHYTONADIONE 5 MG TAB PO STA (11:45)
--- NOTE | 2018-08-27 15:12 | Hospitalist Progress Note ---
Date of Service August 27, 2018 Assessment & Plan (1) Chest pain: DDX but not limited to: Pulm: PNA, empyema, abscess, transudative pleural effusion, infectious effusion, Cardiac: Pericarditis, pericardial tamponade, CHF , ACS, aortic dissection Pain is likely secondary to pleurisy secondary to pneumonia and effusion Consult pulmonology-appreciate input and recommendation Obtain CT scan chest without contrast given renal function Continue IV Zosyn for possible empyema and pneumonic effusion Check MRSA swab, if negative we will not implement MRSA coverage Doubt any ACS Echo of the heart: Moderate pulmonary hypertension, mild right ventricular dilatation with decreased right ventricular systolic function, mild to moderate left and right atrial dilatation, bicuspid aortic valve with regurgitation, mild aortic stenosis, EF of 55-60% Chest pain seems to be noncardiac in origin Denies any more chest pain today but has discomfort secondary to decortication and chest tube placement Respiratory symptoms remain stable (2) Pleural effusion, left: Associated with chest pain with deep breathing Seems to be pneumonic effusion Appreciate thoracic surgery input and recommendation Status post left thoracotomy and decortication POD #1 following left lung decortication Draining serosanguineous fluid through the chest tube 1 of the chest tube has been removed Clinically stable and will transfer to medical floor (3) DEMPSEY (dyspnea on exertion): Likely has chronic diastolic heart failure Secondary to effusion (4) Persistent atrial fibrillation: -Rate controlled on metoprolol and digoxin, continue -Dig level 0.1 today -Warfarin for anticoagulation, INR 6.9, once evening (patient already took a dose this a.m.) -5 mg vitamin K given secondary to likely thoracentesis -Repeat INR in a.m. -INR remains high at 5.6 today -Put another dose of vitamin K this morning -Received 2 units of fresh frozen plasma this morning before the procedure -INR 1.7 at 11:00 Will continue-Coumadin as appropriate INR is 5.6 today We will get 2.5 mg vitamin K orally Monitor INR (5) T2DM (type 2 diabetes mellitus): -Unknown A1c, last noted in outpatient records 06/29/17 was 7.4 -Hold outpatient metformin and glipizide, would recommend discontinuing metformin as outpatient given current renal function -Lantus/NovoLog per protocol -A1c in a.m-7.2. Doses have been adjusted (6) HTN (hypertension): -Blood pressure on low side, will hold home hydralazine -Continue metoprolol with parameters (7) HLD (hyperlipidemia): -Continue statin (8) CKD (chronic kidney disease) stage 3, GFR 30-59 ml/min: -Acute kidney failure on CKD -Baseline creatinine 1.71.9 -BUN/creatinine today 41 and 2.04 -Follow BMP and avoid nephrotoxic agents -Patient on metformin as outpatient, would recommend discontinuing given current renal function -Creatinine 2.03 -Creatinine remains elevated ,more than 2 (9) Anemia: -H/H 10.0 and 31.4 -H/H in 01/2017 13.2 and 40 -Normocytic normochromic -Monitor CBC, may be secondary CKD stage III -Hemoglobin is 8.8 today (10) Elevated INR: -INR supratherapeutic at 6.9, hold Coumadin -Check PT/INR in a.m. -5 mg of vitamin K ordered secondary to likely thoracentesis -No signs or symptoms of current bleeding -INR 5.5 today 08/27 We will give vitamin K 2.5 mg orally and monitor INR (11) DVT prophylaxis: -INR supratherapeutic at 6.9, hold Coumadin -Check PT/INR Disposition: to be determined, case management consulted [facility] Subjective This is a 87-year-old male with significant PMH of persistent A. fib on long- term warfarin, chronic bifascicular heart block, HTN, HLD, T2 DM, CKD stage III , history of PMR, history of tachycardic induced cardiomyopathy with return of normal EF who presents to [facility] ED secondary to chest pain times 2-3 weeks. 08/24 The Patient Was Seen and Examined in Telemetry Unit He continues to have mild to moderate shortness of breath at rest He also complains to have chest pain with inspiration Denies any fever and/or chills, denies any nausea and/or vomiting 08/25 The patient was seen and examined in telemetry unit He still complains to have chest pain on breathing Denies any abdominal pain, nausea and/or vomiting Denies any fever and/or chills 08/26 The patient was seen and examined in telemetry He is a status post #1 day after an extensive decortication of his left lung. Clinically stable 08/27 He has been feeling a lot better today He is out of bed when a chair He denies any significant symptoms Physical Exam 2 Vital Signs (Past 24 Hours): Last Vital Signs Temp 36.7 C 08/27/18 11:24 Pulse 70 08/27/18 11:24 Resp 22 08/27/18 11:24 BP 123/58 L 08/27/18 11:24 Pulse Ox 96 08/27/18 11:24 Physical Exam: No apparent distress at rest Constitutional: well developed, + acute distress (Minimal acute distress) and + ill appearing Eyes: PERRL, conjunctivae normal, anicteric sclerae ENMT: external ear and nose normal, oropharynx normal Respiratory: normal respiratory effort, + respiratory distress and + uses accessory muscles Auscultation: + diminished lung sounds (More on the left than the right base) and + wheezes Cardiovascular: Rate/Rhythm: regular rate and regular rhythm Heart Sounds: normal S1 and normal S2 Gastrointestinal (Abdomen): Inspection/Auscultation: abdomen normal to inspection and normal bowel sounds Percussion/Palpation: abdomen soft Neurologic: Alert, awake and oriented x3. Generally very weak and lethargic Results & Data Laboratory Results Short CBC 08/27/18 Range/Units 08:55 WBC 16.42 H (4.8-10.8) K/uL Hgb 8.8 L (14.0-18.0) g/dL Hct 27.3 L (42-52) % Plt Count 316 (130-400) K/uL BMP 08/27/18 08:55 Sodium 136 Potassium 4.5 Chloride 104 Carbon Dioxide 27 BUN 55 H Creatinine 2.21 H Glucose 174 H Calcium 8.6 Medications Administered Current Inpatient Medications Acetaminophen (Tylenol) 650 mg PO Q6 [facility] Stop: 09/25/18 11:59 Last Admin: 08/27/18 11:50 Dose: 650 mg Aspirin (Aspirin Chew) 81 mg PO QAM [facility] Stop: 09/23/18 08:59 Last Admin: 08/27/18 08:14 Dose: 81 mg Dextrose (Dextrose 50%) 25 - 50 ml IV UD PRN; Protocol PRN Reason: Hypoglycemia Protocol Stop: 09/22/18 16:54 Digoxin (Lanoxin) 0.125 mg PO DAILY@1600 [facility] Stop: 09/23/18 15:59 Last Admin: 08/26/18 15:14 Dose: Not Given Docusate Sodium (Colace) 100 mg PO BID [facility] Stop: 09/24/18 20:59 Last Admin: 08/27/18 08:14 Dose: 100 mg Glucagon (Glucagen) 1 mg SQ UD PRN; Protocol PRN Reason: Hypoglycemia Protocol Stop: 09/22/18 16:54 Glucose (Glucose 40%) 15 - 30 gm PO UD PRN; Protocol PRN Reason: Hypoglycemia Protocol Stop: 09/22/18 16:54 Glucose (Dex4 Glucose) 4 - 8 tabs PO UD PRN; Protocol PRN Reason: Hypoglycemia Protocol Stop: 09/22/18 16:54 Piperacillin Sod/Tazobactam (Sod 3.375 gm/ Dextrose) 115 mls @ 28.75 mls/hr IV Q8H [facility]; Protocol Stop: 08/30/18 19:59 Last Admin: 08/27/18 12:23 Dose: 28.8 mls/hr Sodium Chloride (Nss 250ml) 250 mls @ 15 mls/hr IV .[id number] PRN PRN Reason: For Transfusion Stop: 09/24/18 18:19 Insulin Aspart (Novolog Flexpen) 0 units SC ACHS [facility] Stop: 09/26/18 07:29 Last Admin: 08/27/18 11:51 Dose: 10 units Insulin Glargine (Lantus Solostar Pen) 0 units SC BID [facility]; Protocol Stop: 09/26/18 08:59 Last Admin: 08/27/18 08:18 Dose: 5 units Levalbuterol HCl (Xopenex 0.63 Mg/3 Ml Neb) 0.63 mg NEB Q6R PRN PRN Reason: Shortness Of Breath Or Wheezing Stop: 09/22/18 16:54 Metoprolol Succinate (Toprol Xl) 12.5 mg PO QAM [facility] Stop: 09/23/18 08:59 Last Admin: 08/27/18 08:14 Dose: 12.5 mg Miscellaneous (Carbohydrates For Hypoglycemia) 15 - 30 gm PO UD PRN PRN Reason: Hypoglycemia Treatment Stop: 09/22/18 16:54 Miscellaneous Information (Consult) 1 ea N/A UD PRN PRN Reason: Consult Stop: 09/22/18 16:54 Morphine Sulfate (Morphine Sulfate) 1 - 2 mg IV Q1H PRN PRN Reason: Pain Stop: 09/08/18 19:24 Last Admin: 08/27/18 04:58 Dose: 2 mg Nitroglycerin (Nitrostat) 0.4 mg SL PRN PRN PRN Reason: Moderate Pain Stop: 09/22/18 12:43 Last Admin: 08/23/18 12:55 Dose: 0.4 mg Ondansetron HCl (Zofran) 4 mg IV Q6H PRN PRN Reason: Nausea Stop: 09/22/18 16:54 Last Admin: 08/26/18 07:44 Dose: 4 mg Oxycodone HCl (Roxicodone Immediate Rel) 5 mg PO Q6H PRN PRN Reason: Pain Stop: 09/08/18 19:24 Last Admin: 08/27/18 08:17 Dose: 5 mg Polyethylene Glycol (Miralax Powder Packet) 17 gm PO DAILY PRN PRN Reason: Constipation Stop: 09/22/18 16:54 Simvastatin (Zocor) 20 mg PO QAM [facility] Stop: 09/23/18 08:59 Last Admin: 08/27/18 08:14 Dose: 20 mg _ (1) Chest pain Chest pain type: unspecified Ischemic chest pain type: Qualified Code(s): R07.9 - Chest pain, unspecified (2) T2DM (type 2 diabetes mellitus) Diabetes mellitus tank terminal gauger insulin use: without tank terminal gauger use Diabetes mellitus complication status: with kidney complications Diabetes mellitus complication detail: with chronic kidney disease Diabetic retinopathy severity : Proliferative retinopathy type: Diabetes mellitus macular edema: Laterality: Chronic kidney disease stage: stage 3 (moderate) Qualified Code(s ): E11.22 - Type 2 diabetes mellitus with diabetic chronic kidney disease; N18.3 - Chronic kidney disease, stage 3 (moderate) (3) HTN (hypertension) Hypertension type: essential hypertension Qualified Code(s): I10 - Essential (primary) hypertension (4) HLD (hyperlipidemia) Hyperlipidemia type: unspecified Qualified Code(s): E78.5 - Hyperlipidemia, unspecified (5) Anemia Anemia type: unspecified type Iron deficiency anemia type: Vitamin B12 deficiency anemia type: Folate deficiency anemia type: Bone marrow failure anemia type: Hemolytic anemia type: Other causes of anemia: Chronic kidney disease stage: Qualified Code(s): D64.9 - Anemia, unspecified
[2018-08-27] MEDS: DIGOXIN 0.125 MG TAB PO SCH (16:03)
[2018-08-28] MEDS: PIPERACILLIN/TAZOBACTAM 3.375 GM in DEXTROSE 5% 100 ML IV SCH ×2 (03:55→17:55)
[2018-08-28 05:50] LABS: Basophils # (auto) 0.01 K/uL (0-0.2); Basophils % (auto) 0.1 %; Eosinophils # (auto) 0.13 K/uL (0-0.5); Hemoglobin 7.9 g/dL (14.0-18.0); Immature Granulocytes # (auto) 0.02 K/uL (0.00-0.02); Immature Granulocytes % (auto) 0.2 %; Lymphocytes % (auto) 7.3 %; Mean Corpuscular Hgb Conc 32.9 g/dL (32-36); Mean Corpuscular Volume 90.6 fL (80-100); Mean Platelet Volume 9.7 fL (7.4-10.4); Monocytes # (auto) 1.05 K/uL (0.11-0.59); Monocytes % (auto) 8.5 %; Neutrophils % (auto) 82.9 %; Platelet Count 276 K/uL (130-400); RDW Coefficient of Variation 14.3 % (11.5-14.5); RDW Standard Deviation 47.5 fL (36.4-46.3); Red Blood Count 2.65 M/uL (4.7-6.1); White Blood Count 12.41 K/uL (4.8-10.8)
[2018-08-28 06:10] LABS: Prothrombin Time 39.2 Seconds (9.0-12.0)
[2018-08-28] MEDS: ACETAMINOPHEN 325 MG TAB PO SCH ×4 (06:15→23:31)
[2018-08-28 06:18] LABS: Echinocytes 1+
[2018-08-28 06:22] LABS: Calcium 8.2 mg/dl (8.5-10.1); Est GFR (African American) 23.7; Est GFR (Non-African American) 20.4; Potassium 4.8 mmol/L (3.5-5.1)
[2018-08-28 06:46] LABS: INR 4.2 (0.9-1.1)
--- NOTE | 2018-08-28 07:08 | XRay Report ---
XR chest 1V portable CLINICAL HISTORY: 87 years-old Male presenting with decortication. TECHNIQUE: Portable upright AP view of the chest was obtained. COMPARISON: 08/27/2018. FINDINGS: Large bore left pleural drain remains positioned at the left apex. Additional large bore left pleural drain position at the paramediastinal left lung base. Atherosclerosis of the aortic arch. Cardiac si lhouette enlarged, unchanged. Pulmonary vascular prominence slightly decreased from prior. Calcified pleural plaques evident on the right. No significant change in size of the small to moderate left ple ural effusion, which appears loculated. Stable to slight interval decrease in diffuse left lung opaci ties. No improvement in aeration of the left lung base. No pneumothorax. Degenerative changes of the thoracic spine. Upper abdomen normal. IMPRESSION: 1. No pneumothorax. Left pleural drains remain in place. 2. Unchanged loculated left pleural effusion with slight interval decrease in left lung opacity. Electronically signed by: Emil Theodore M.D. 08/28/2018 7:07 AM
--- NOTE | 2018-08-28 08:00 | Surgery Progress Note ---
Date of Service August 28, 2018 Assessment & Plan (1) Pleural effusion, left: -pt. is s/p LVATS with decortication: -cultures checked adn are noted to be (-) for growth -surgical path is pending -will d/c second chest tube today -continue pain control measures -discussed with RN and pt. the importance of pulmonary toilet and ambulation -will continue pleurex and if drainage remains low will d/c when appropriate -as INR remains >2.0 no additional DVT prophylaxis will be ordered Subjective Pt. doing well. He again notes pain with coughing and deep inspiration. Physical Exam 2 Vital Signs (Past 24 Hours): Last Vital Signs Temp 37.1 C 08/28/18 07:01 Pulse 119 H 08/28/18 07:01 Resp 20 08/28/18 07:01 BP 103/56 L 08/28/18 07:01 Pulse Ox 91 08/28/18 07:01 Physical Exam: CT examined as well as pleurex--no air leak. Constitutional: well developed and well nourished Respiratory: BS are decreased at bases, no use of accessory muscles
--- NOTE | 2018-08-28 08:30 | XRay Report ---
XR chest 1V portable CLINICAL HISTORY: 87 years-old Male presenting with tube removal . TECHNIQUE: Portable upright AP view of the chest was obtained. COMPARISON: 08/28/2018. FINDINGS: Large bore left pleural drain position at the left apex. Additional large bore left drain has been re moved from the left lung base. Atherosclerosis of aortic arch. Cardiac silhouette moderately enlarged . Slight interval decrease in pulmonary vascular prominence. Bronchial wall thickening persists. Smal l to moderate left pleural effusion, which may be loculated. This is unchanged from prior. No pneumot horax. Persistent to slight decrease in left lung opacities with a basilar predominance. Calcified pl eural plaques noted. Degenerative changes of the thoracic spine. IMPRESSION: 1. Removal of one of the 2 left pleural drains. No pneumothorax. 2. Cardiomegaly with stable to slight decrease in volume overload. Congestive changes still present. 3. Left lung infiltrates with a basilar predominance, overall not significantly changed. 4. No significant change in the small to moderate likely loculated left pleural effusion. Electronically signed by: Emil Theodore M.D. 08/28/2018 8:29 AM
[2018-08-28] MEDS: ASPIRIN 81 MG CHEW PO SCH (08:46)
[2018-08-28] MEDS: SIMVASTATIN 20 MG TAB PO SCH (08:47)
[2018-08-28] MEDS: DOCUSATE SODIUM 100 MG CAP PO SCH ×2 (08:47→20:57)
[2018-08-28] MEDS: METOPROLOL SUCC 25MG EXT REL TAB PO SCH (08:49)
[2018-08-28] MEDS: INSULIN GLARGINE SOLOSTAR 100 UNITS/ML 3 ML PEN SC SCH ×2 (09:16→20:58)
[2018-08-28] MEDS: INSULIN ASPART 100 UNITS/ML 3 ML PEN SC SCH ×4 (09:17→20:59)
[2018-08-28] MEDS ORDERED: SODIUM CHLORIDE 0.9% 250 ML IV PRN (12:20)
--- NOTE | 2018-08-28 15:04 | Hospitalist Progress Note ---
Date of Service August 28, 2018 Assessment & Plan (1) Chest pain: DDX but not limited to: Pulm: PNA, empyema, abscess, transudative pleural effusion, infectious effusion, Cardiac: Pericarditis, pericardial tamponade, CHF , ACS, aortic dissection Pain is likely secondary to pleurisy secondary to pneumonia and effusion Consult pulmonology-appreciate input and recommendation Obtain CT scan chest without contrast given renal function Continue IV Zosyn for possible empyema and pneumonic effusion Check MRSA swab, if negative we will not implement MRSA coverage Doubt any ACS Echo of the heart: Moderate pulmonary hypertension, mild right ventricular dilatation with decreased right ventricular systolic function, mild to moderate left and right atrial dilatation, bicuspid aortic valve with regurgitation, mild aortic stenosis, EF of 55-60% Chest pain seems to be noncardiac in origin Denies any more chest pain today but has discomfort secondary to decortication and chest tube placement Respiratory symptoms remain stable (2) Pleural effusion, left: Associated with chest pain with deep breathing Seems to be pneumonic effusion Appreciate thoracic surgery input and recommendation Status post left thoracotomy and decortication POD #1 following left lung decortication Draining serosanguineous fluid through the chest tube 1 of the chest tube has been removed Clinically stable and will transfer to medical floor Status post removal of all chest tubes Clinically stable without any shortness of breath at rest (3) DEMPSEY (dyspnea on exertion): Likely has chronic diastolic heart failure Secondary to effusion (4) Persistent atrial fibrillation: -Rate controlled on metoprolol and digoxin, continue -Dig level 0.1 today -Warfarin for anticoagulation, INR 6.9, once evening (patient already took a dose this a.m.) -5 mg vitamin K given secondary to likely thoracentesis -Repeat INR in a.m. -INR remains high at 5.6 today -Put another dose of vitamin K this morning -Received 2 units of fresh frozen plasma this morning before the procedure -INR 1.7 at 11:00 Will continue-Coumadin as appropriate Heart rate is controlled INR is 5.6 today We will get 2.5 mg vitamin K orally Monitor INR (5) T2DM (type 2 diabetes mellitus): -Unknown A1c, last noted in outpatient records 06/29/17 was 7.4 -Hold outpatient metformin and glipizide, would recommend discontinuing metformin as outpatient given current renal function -Lantus/NovoLog per protocol -A1c in a.m-7.2. Doses have been adjusted (6) HTN (hypertension): -Blood pressure on low side, will hold home hydralazine -Continue metoprolol with parameters (7) HLD (hyperlipidemia): -Continue statin (8) CKD (chronic kidney disease) stage 3, GFR 30-59 ml/min: -Acute kidney failure on CKD -Baseline creatinine 1.71.9 -BUN/creatinine today 41 and 2.04 -Follow BMP and avoid nephrotoxic agents -Patient on metformin as outpatient, would recommend discontinuing given current renal function -Creatinine 2.03 -Creatinine remains elevated ,more than 2 (9) Anemia: -H/H 10.0 and 31.4 -H/H in 01/2017 13.2 and 40 -Normocytic normochromic -Monitor CBC, may be secondary CKD stage III -Hemoglobin dropped to 7.9 today -We will transfuse 1 unit of packed red blood cell (10) Elevated INR: -INR supratherapeutic at 6.9, hold Coumadin -Check PT/INR in a.m. -5 mg of vitamin K ordered secondary to likely thoracentesis -No signs or symptoms of current bleeding -INR 5.5 today 08/27 We will give vitamin K 2.5 mg orally and monitor INR INR is improving Monitor INR and restart Coumadin when appropriate (11) DVT prophylaxis: -INR supratherapeutic at 6.9, hold Coumadin -Check PT/INR Disposition: to be determined, case management consulted [facility] Subjective This is a 87-year-old male with significant PMH of persistent A. 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 08/24 The Patient Was Seen and Examined in Telemetry Unit He continues to have mild to moderate shortness of breath at rest He also complains to have chest pain with inspiration Denies any fever and/or chills, denies any nausea and/or vomiting 08/25 The patient was seen and examined in telemetry unit He still complains to have chest pain on breathing Denies any abdominal pain, nausea and/or vomiting Denies any fever and/or chills 08/26 The patient was seen and examined in telemetry He is a status post #1 day after an extensive decortication of his left lung. Clinically stable 08/27 He has been feeling a lot better today He is out of bed when a chair He denies any significant symptoms 08/28 Remains lethargic but denies any chest pain and/or palpitation Chest tubes have been out Physical Exam 2 Vital Signs (Past 24 Hours): Last Vital Signs Temp 36.8 C 08/28/18 14:30 Pulse 73 08/28/18 14:30 Resp 18 08/28/18 14:30 BP 138/57 L 08/28/18 14:30 Pulse Ox 93 08/28/18 14:30 Physical Exam: Looks ill but no apparent distress Constitutional: well developed and + ill appearing Eyes: PERRL, conjunctivae normal, anicteric sclerae ENMT: external ear and nose normal, oropharynx normal Respiratory: normal respiratory effort; no respiratory distress Auscultation: + diminished lung sounds (More on the left than the right base) Cardiovascular: Rate/Rhythm: regular rate and regular rhythm Heart Sounds: normal S1 and normal S2 Gastrointestinal (Abdomen): Inspection/Auscultation: abdomen normal to inspection and normal bowel sounds Percussion/Palpation: abdomen soft Musculoskeletal: No acute arthritis Neurologic: Generally very weak and lethargic Results & Data Laboratory Results Short CBC 08/28/18 Range/Units 05:32 WBC 12.41 H (4.8-10.8) K/uL Hgb 7.9 L (14.0-18.0) g/dL Hct 24.0 L (42-52) % Plt Count 276 (130-400) K/uL BMP 08/28/18 05:32 Sodium 136 Potassium 4.8 Chloride 106 Carbon Dioxide 22 BUN 59 H Creatinine 2.67 H D Glucose 167 H Calcium 8.2 L Medications Administered Current Inpatient Medications Acetaminophen (Tylenol) 650 mg PO Q6 [facility] Stop: 09/25/18 11:59 Last Admin: 08/28/18 13:12 Dose: 650 mg Aspirin (Aspirin Chew) 81 mg PO QAM [facility] Stop: 09/23/18 08:59 Last Admin: 08/28/18 08:46 Dose: 81 mg Dextrose (Dextrose 50%) 25 - 50 ml IV UD PRN; Protocol PRN Reason: Hypoglycemia Protocol Stop: 09/22/18 16:54 Digoxin (Lanoxin) 0.125 mg PO DAILY@1600 [facility] Stop: 09/23/18 15:59 Last Admin: 08/27/18 16:03 Dose: 0.125 mg Docusate Sodium (Colace) 100 mg PO BID [facility] Stop: 09/24/18 20:59 Last Admin: 08/28/18 08:47 Dose: 100 mg Glucagon (Glucagen) 1 mg SQ UD PRN; Protocol PRN Reason: Hypoglycemia Protocol Stop: 09/22/18 16:54 Glucose (Glucose 40%) 15 - 30 gm PO UD PRN; Protocol PRN Reason: Hypoglycemia Protocol Stop: 09/22/18 16:54 Glucose (Dex4 Glucose) 4 - 8 tabs PO UD PRN; Protocol PRN Reason: Hypoglycemia Protocol Stop: 09/22/18 16:54 Sodium Chloride (Nss 250ml) 250 mls @ 15 mls/hr IV .[id number] PRN PRN Reason: For Transfusion Stop: 09/24/18 18:19 Piperacillin Sod/Tazobactam (Sod 3.375 gm/ Dextrose) 115 mls @ 28.75 mls/hr IV Q12H [facility]; Protocol Stop: 08/30/18 15:59 Sodium Chloride (Nss 250ml) 250 mls @ 15 mls/hr IV .[id number] PRN PRN Reason: For Transfusion Stop: 09/27/18 12:19 Insulin Aspart (Novolog Flexpen) 0 units SC ACHS [facility] Stop: 09/26/18 07:29 Last Admin: 08/28/18 13:55 Dose: 13 units Insulin Glargine (Lantus Solostar Pen) 0 units SC BID [facility]; Protocol Stop: 09/26/18 08:59 Last Admin: 08/28/18 09:16 Dose: 10 units Levalbuterol HCl (Xopenex 0.63 Mg/3 Ml Neb) 0.63 mg NEB Q6R PRN PRN Reason: Shortness Of Breath Or Wheezing Stop: 09/22/18 16:54 Metoprolol Succinate (Toprol Xl) 12.5 mg PO QAM [facility] Stop: 09/23/18 08:59 Last Admin: 08/28/18 08:49 Dose: 12.5 mg Miscellaneous (Carbohydrates For Hypoglycemia) 15 - 30 gm PO UD PRN PRN Reason: Hypoglycemia Treatment Stop: 09/22/18 16:54 Miscellaneous Information (Consult) 1 ea N/A UD PRN PRN Reason: Consult Stop: 09/22/18 16:54 Morphine Sulfate (Morphine Sulfate) 1 - 2 mg IV Q1H PRN PRN Reason: Pain Stop: 09/08/18 19:24 Last Admin: 08/27/18 04:58 Dose: 2 mg Nitroglycerin (Nitrostat) 0.4 mg SL PRN PRN PRN Reason: Moderate Pain Stop: 09/22/18 12:43 Last Admin: 08/23/18 12:55 Dose: 0.4 mg Ondansetron HCl (Zofran) 4 mg IV Q6H PRN PRN Reason: Nausea Stop: 09/22/18 16:54 Last Admin: 08/26/18 07:44 Dose: 4 mg Oxycodone HCl (Roxicodone Immediate Rel) 5 mg PO Q6H PRN PRN Reason: Pain Stop: 09/08/18 19:24 Last Admin: 08/27/18 08:17 Dose: 5 mg Polyethylene Glycol (Miralax Powder Packet) 17 gm PO DAILY PRN PRN Reason: Constipation Stop: 09/22/18 16:54 Simvastatin (Zocor) 20 mg PO QAM [facility] Stop: 09/23/18 08:59 Last Admin: 08/28/18 08:47 Dose: 20 mg _ (1) Chest pain Chest pain type: unspecified Ischemic chest pain type: Qualified Code(s): R07.9 - Chest pain, unspecified (2) T2DM (type 2 diabetes mellitus) Diabetes mellitus director long term care insulin use: without nursing home use Diabetes mellitus complication status: with kidney complications Diabetes mellitus complication detail: with chronic kidney disease Diabetic retinopathy severity : Proliferative retinopathy type: Diabetes mellitus macular edema: Laterality: Chronic kidney disease stage: stage 3 (moderate) Qualified Code(s ): E11.22 - Type 2 diabetes mellitus with diabetic chronic kidney disease; N18.3 - Chronic kidney disease, stage 3 (moderate) (3) HTN (hypertension) Hypertension type: essential hypertension Qualified Code(s): I10 - Essential (primary) hypertension (4) HLD (hyperlipidemia) Hyperlipidemia type: unspecified Qualified Code(s): E78.5 - Hyperlipidemia, unspecified (5) Anemia Anemia type: unspecified type Iron deficiency anemia type: Vitamin B12 deficiency anemia type: Folate deficiency anemia type: Bone marrow failure anemia type: Hemolytic anemia type: Other causes of anemia: Chronic kidney disease stage: Qualified Code(s): D64.9 - Anemia, unspecified
[2018-08-28] MEDS: DIGOXIN 0.125 MG TAB PO SCH (17:20)
[2018-08-29] MEDS: PIPERACILLIN/TAZOBACTAM 3.375 GM in DEXTROSE 5% 100 ML IV SCH ×2 (04:24→15:37)
[2018-08-29] MEDS: ACETAMINOPHEN 325 MG TAB PO SCH ×4 (05:27→23:24)
[2018-08-29 06:50] LABS: Basophils # (auto) 0.01 K/uL (0-0.2); Basophils % (auto) 0.1 %; Eosinophils # (auto) 0.11 K/uL (0-0.5); Eosinophils % (auto) 0.8 %; Hematocrit (blood only) 27.2 % (42-52); Hemoglobin 8.9 g/dL (14.0-18.0); Immature Granulocytes # (auto) 0.07 K/uL (0.00-0.02); Immature Granulocytes % (auto) 0.5 %; Lymphocytes # (auto) 1.08 K/uL (1.2-3.4); Lymphocytes % (auto) 7.8 %; Mean Corpuscular Hgb Conc 32.7 g/dL (32-36); Mean Corpuscular Volume 89.5 fL (80-100); Mean Platelet Volume 9.5 fL (7.4-10.4); Monocytes # (auto) 1.18 K/uL (0.11-0.59); Monocytes % (auto) 8.6 %; Neutrophils # (auto) 11.34 K/uL (1.4-6.5); Neutrophils % (auto) 82.2 %; Platelet Count 310 K/uL (130-400); RDW Coefficient of Variation 14.9 % (11.5-14.5); RDW Standard Deviation 48.6 fL (36.4-46.3); Red Blood Count 3.04 M/uL (4.7-6.1); White Blood Count 13.79 K/uL (4.8-10.8)
[2018-08-29 06:58] LABS: INR 3.5 (0.9-1.1); Prothrombin Time 32.8 Seconds (9.0-12.0)
--- NOTE | 2018-08-29 07:23 | XRay Report ---
XR chest 1V portable CLINICAL HISTORY: decortication COMPARISON STUDY: August 28, 2018 FINDINGS: There is a left-sided chest tube unchanged in position. There are bilateral pleural diaphra gmatic calcifications of bilateral calcified pleural plaques. There is no pneumothorax. Left-sided pl eural thickening/fluid remains unchanged. Left basilar airspace opacities remain stable.[ IMPRESSION: Stable findings. No evidence of pneumothorax. Electronically signed by: Jordan Peña M.D. 08/29/2018 7:22 AM
[2018-08-29 07:26] LABS: BUN Creatinine Ratio 22.5 (10-20); Calcium 7.9 mg/dl (8.5-10.1); Creatinine Clr Calc Pharmacy 21.9 ml/min; Echinocytes 2+; Est GFR (African American) 24.9; Est GFR (Non-African American) 21.5; Polychromasia 1+; Potassium 4.2 mmol/L (3.5-5.1)
[2018-08-29] MEDS: METOPROLOL SUCC 25MG EXT REL TAB PO SCH (09:46)
[2018-08-29] MEDS: SIMVASTATIN 20 MG TAB PO SCH (09:47)
[2018-08-29] MEDS: DOCUSATE SODIUM 100 MG CAP PO SCH ×2 (09:47→21:37)
[2018-08-29] MEDS: ASPIRIN 81 MG CHEW PO SCH (09:47)
[2018-08-29] MEDS: INSULIN GLARGINE SOLOSTAR 100 UNITS/ML 3 ML PEN SC SCH ×2 (09:48→21:38)
[2018-08-29] MEDS: INSULIN ASPART 100 UNITS/ML 3 ML PEN SC SCH ×4 (09:52→21:39)
[2018-08-29] MEDS: DIGOXIN 0.125 MG TAB PO SCH (15:43)
--- NOTE | 2018-08-29 17:22 | Hospitalist Progress Note ---
Date of Service August 29, 2018 Assessment & Plan (1) Chest pain: DDX but not limited to: Pulm: PNA, empyema, abscess, transudative pleural effusion, infectious effusion, Cardiac: Pericarditis, pericardial tamponade, CHF , ACS, aortic dissection Pain is likely secondary to pleurisy secondary to pneumonia and effusion Consult pulmonology-appreciate input and recommendation Obtain CT scan chest without contrast given renal function Continue IV Zosyn for possible empyema and pneumonic effusion Check MRSA swab, if negative we will not implement MRSA coverage Doubt any ACS Echo of the heart: Moderate pulmonary hypertension, mild right ventricular dilatation with decreased right ventricular systolic function, mild to moderate left and right atrial dilatation, bicuspid aortic valve with regurgitation, mild aortic stenosis, EF of 55-60% Status post removal of chest tubes Chest pain is better but is still there Denies any significant shortness of (2) Pleural effusion, left: Associated with chest pain with deep breathing Seems to be pneumonic effusion Appreciate thoracic surgery input and recommendation Status post left thoracotomy and decortication Remains stable following left lung decortication Draining serosanguineous fluid through the chest tube Status post removal of all chest tubes Clinically stable without any shortness of breath at rest We will continue antibiotic for 1 or 2 more days (3) DEMPSEY (dyspnea on exertion): Likely has chronic diastolic heart failure Secondary to effusion (4) Persistent atrial fibrillation: -Rate controlled on metoprolol and digoxin, continue -Dig level 0.1 today -Warfarin for anticoagulation, INR 6.9, once evening (patient already took a dose this a.m.) -5 mg vitamin K given secondary to likely thoracentesis -Repeat INR in a.m. -INR remains high at 5.6 today -Put another dose of vitamin K this morning -Received 2 units of fresh frozen plasma this morning before the procedure -INR 1.7 at 11:00 Will continue-Coumadin as appropriate Heart rate is controlled INR is 5.6 today We will get 2.5 mg vitamin K orally Monitor INR (5) T2DM (type 2 diabetes mellitus): -Unknown A1c, last noted in outpatient records 06/29/17 was 7.4 -Hold outpatient metformin and glipizide, would recommend discontinuing metformin as outpatient given current renal function -Lantus/NovoLog per protocol -A1c in a.m-7.2. Doses have been adjusted (6) HTN (hypertension): -Blood pressure on low side, will hold home hydralazine -Continue metoprolol with parameters (7) HLD (hyperlipidemia): -Continue statin (8) CKD (chronic kidney disease) stage 3, GFR 30-59 ml/min: -Acute kidney failure on CKD -Baseline creatinine 1.71.9 -BUN/creatinine today 41 and 2.04 -Follow BMP and avoid nephrotoxic agents -Patient on metformin as outpatient, would recommend discontinuing given current renal function -Creatinine 2.03 -Creatinine remains elevated ,more than 2 (9) Anemia: -H/H 10.0 and 31.4 -H/H in 01/2017 13.2 and 40 -Normocytic normochromic -Monitor CBC, may be secondary CKD stage III -Hemoglobin dropped to 7.9 today -We will transfuse 1 unit of packed red blood cell -Hemoglobin has gone up to 8.9 following blood transfusion (10) Elevated INR: -INR supratherapeutic at 6.9, hold Coumadin -Check PT/INR in a.m. -5 mg of vitamin K ordered secondary to likely thoracentesis -No signs or symptoms of current bleeding -INR 5.5 today 08/27 We will give vitamin K 2.5 mg orally and monitor INR INR is improving Monitor INR and restart Coumadin when appropriate INR is 3.5 today, will hold Coumadin for today (11) DVT prophylaxis: -INR supratherapeutic at 6.9, hold Coumadin -Check PT/INR Disposition: to be determined, case management consulted [facility] Subjective This is a 87-year-old male with significant PMH of persistent A. 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 08/24 The Patient Was Seen and Examined in Telemetry Unit He continues to have mild to moderate shortness of breath at rest He also complains to have chest pain with inspiration Denies any fever and/or chills, denies any nausea and/or vomiting 08/25 The patient was seen and examined in telemetry unit He still complains to have chest pain on breathing Denies any abdominal pain, nausea and/or vomiting Denies any fever and/or chills 08/26 The patient was seen and examined in telemetry He is a status post #1 day after an extensive decortication of his left lung. Clinically stable 08/27 He has been feeling a lot better today He is out of bed when a chair He denies any significant symptoms 08/28 Remains lethargic but denies any chest pain and/or palpitation Chest tubes have been out 08/29 Remains generally weak and lethargic Complains to have bilateral chest wall pain the lower region Not yet ready to be discharged Physical Exam 2 Vital Signs (Past 24 Hours): Last Vital Signs Temp 36.4 C L 08/29/18 15:06 Pulse 91 H 08/29/18 15:43 Resp 16 08/29/18 15:06 BP 145/59 H 08/29/18 15:06 Pulse Ox 96 08/29/18 15:06 Constitutional: + acute distress (Minimal acute distress), + ill appearing and + thin Eyes: PERRL, conjunctivae normal, anicteric sclerae ENMT: external ear and nose normal, oropharynx normal Respiratory: normal respiratory effort and + uses accessory muscles; no respiratory distress Auscultation: + diminished lung sounds (More on the left than the right base) and + wheezes Cardiovascular: Rate/Rhythm: regular rate and regular rhythm Heart Sounds: normal S1 and normal S2 Gastrointestinal (Abdomen): Inspection/Auscultation: abdomen normal to inspection and normal bowel sounds Percussion/Palpation: abdomen soft Neurologic: Generally weak and lethargic but moving all the limbs Results & Data Laboratory Results Short CBC 08/29/18 Range/Units 06:23 WBC 13.79 H (4.8-10.8) K/uL Hgb 8.9 L (14.0-18.0) g/dL Hct 27.2 L (42-52) % Plt Count 310 (130-400) K/uL BMP 08/29/18 06:23 Sodium 138 Potassium 4.2 Chloride 108 H Carbon Dioxide 21 BUN 57 H Creatinine 2.56 H Glucose 134 H Calcium 7.9 L Medications Administered Current Inpatient Medications Acetaminophen (Tylenol) 650 mg PO Q6 [facility] Stop: 09/25/18 11:59 Last Admin: 08/29/18 11:51 Dose: 650 mg Aspirin (Aspirin Chew) 81 mg PO QAM [facility] Stop: 09/23/18 08:59 Last Admin: 08/29/18 09:47 Dose: 81 mg Dextrose (Dextrose 50%) 25 - 50 ml IV UD PRN; Protocol PRN Reason: Hypoglycemia Protocol Stop: 09/22/18 16:54 Digoxin (Lanoxin) 0.125 mg PO DAILY@1600 [facility] Stop: 09/23/18 15:59 Last Admin: 08/29/18 15:43 Dose: 0.125 mg Docusate Sodium (Colace) 100 mg PO BID [facility] Stop: 09/24/18 20:59 Last Admin: 08/29/18 09:47 Dose: 100 mg Glucagon (Glucagen) 1 mg SQ UD PRN; Protocol PRN Reason: Hypoglycemia Protocol Stop: 09/22/18 16:54 Glucose (Glucose 40%) 15 - 30 gm PO UD PRN; Protocol PRN Reason: Hypoglycemia Protocol Stop: 09/22/18 16:54 Glucose (Dex4 Glucose) 4 - 8 tabs PO UD PRN; Protocol PRN Reason: Hypoglycemia Protocol Stop: 09/22/18 16:54 Sodium Chloride (Nss 250ml) 250 mls @ 15 mls/hr IV .[id number] PRN PRN Reason: For Transfusion Stop: 09/24/18 18:19 Piperacillin Sod/Tazobactam (Sod 3.375 gm/ Dextrose) 115 mls @ 28.75 mls/hr IV Q12H [facility]; Protocol Stop: 08/31/18 23:59 Last Admin: 08/29/18 15:37 Dose: 28.8 mls/hr Sodium Chloride (Nss 250ml) 250 mls @ 15 mls/hr IV .[id number] PRN PRN Reason: For Transfusion Stop: 09/27/18 12:19 Insulin Aspart (Novolog Flexpen) 0 units SC ACHS [facility] Stop: 09/26/18 07:29 Last Admin: 08/29/18 13:42 Dose: Not Given Insulin Glargine (Lantus Solostar Pen) 0 units SC BID [facility]; Protocol Stop: 09/26/18 08:59 Last Admin: 08/29/18 09:48 Dose: 5 units Levalbuterol HCl (Xopenex 0.63 Mg/3 Ml Neb) 0.63 mg NEB Q6R PRN PRN Reason: Shortness Of Breath Or Wheezing Stop: 09/22/18 16:54 Metoprolol Succinate (Toprol Xl) 12.5 mg PO QAM [facility] Stop: 09/23/18 08:59 Last Admin: 08/29/18 09:46 Dose: 12.5 mg Miscellaneous (Carbohydrates For Hypoglycemia) 15 - 30 gm PO UD PRN PRN Reason: Hypoglycemia Treatment Stop: 09/22/18 16:54 Miscellaneous Information (Consult) 1 ea N/A UD PRN PRN Reason: Consult Stop: 08/31/18 23:59 Morphine Sulfate (Morphine Sulfate) 1 - 2 mg IV Q1H PRN PRN Reason: Pain Stop: 09/08/18 19:24 Last Admin: 08/27/18 04:58 Dose: 2 mg Nitroglycerin (Nitrostat) 0.4 mg SL PRN PRN PRN Reason: Moderate Pain Stop: 09/22/18 12:43 Last Admin: 08/23/18 12:55 Dose: 0.4 mg Ondansetron HCl (Zofran) 4 mg IV Q6H PRN PRN Reason: Nausea Stop: 09/22/18 16:54 Last Admin: 08/26/18 07:44 Dose: 4 mg Oxycodone HCl (Roxicodone Immediate Rel) 5 mg PO Q6H PRN PRN Reason: Pain Stop: 09/08/18 19:24 Last Admin: 08/27/18 08:17 Dose: 5 mg Polyethylene Glycol (Miralax Powder Packet) 17 gm PO DAILY PRN PRN Reason: Constipation Stop: 09/22/18 16:54 [facility]) [facility] Stop: 09/23/18 08:59 Last Admin: 08/29/18 09:47 Dose: 20 mg _ (1) Chest pain Chest pain type: unspecified Ischemic chest pain type: Qualified Code(s): R07.9 - Chest pain, unspecified (2) T2DM (type 2 diabetes mellitus) Diabetes mellitus [facility] insulin use: without chcf use Diabetes mellitus complication status: with kidney complications Diabetes mellitus complication detail: with chronic kidney disease Diabetic retinopathy severity : Proliferative retinopathy type: Diabetes mellitus macular edema: Laterality: Chronic kidney disease stage: stage 3 (moderate) Qualified Code(s ): E11.22 - Type 2 diabetes mellitus with diabetic chronic kidney disease; N18.3 - Chronic kidney disease, stage 3 (moderate) (3) HTN (hypertension) Hypertension type: essential hypertension Qualified Code(s): I10 - Essential (primary) hypertension (4) HLD (hyperlipidemia) Hyperlipidemia type: unspecified Qualified Code(s): E78.5 - Hyperlipidemia, unspecified (5) Anemia Anemia type: unspecified type Iron deficiency anemia type: Vitamin B12 deficiency anemia type: Folate deficiency anemia type: Bone marrow failure anemia type: Hemolytic anemia type: Other causes of anemia: Chronic kidney disease stage: Qualified Code(s): D64.9 - Anemia, unspecified
--- NOTE | 2018-08-29 18:01 | Progress Note ---
DATE: 08/29/2018 SUBJECTIVE: Mr. Cortés is an 87-year-old male who underwent a thoracoscopic decortication on 08/25/2018. We saw no malignant cells in the fluid thus far and it appears that it is blood. It certainly appears to be blood. His white count today is a 13,790 and hemoglobin is 8.9. His BUN and creatinine are elevated quite a bit, 57 and his creatinine is 2.56 both of these have improved since yesterday. He does not feel good. He is not taking p.o. very well. He states that he is able to swallow. He just does not "feel like eating." We are going to start him on Megace. We will see if that helps his appetite.
[2018-08-29] MEDS: MEGESTROL ACETATE SUSP 400 MG/10 ML UDC PO SCH (19:33)
[2018-08-30] MEDS: PIPERACILLIN/TAZOBACTAM 3.375 GM in DEXTROSE 5% 100 ML IV SCH (04:07)
[2018-08-30] MEDS: ACETAMINOPHEN 325 MG TAB PO SCH ×4 (05:27→23:28)
[2018-08-30 07:17] LABS: Basophils # (auto) 0.01 K/uL (0-0.2); Basophils % (auto) 0.1 %; Eosinophils # (auto) 0.19 K/uL (0-0.5); Eosinophils % (auto) 1.2 %; Hematocrit (blood only) 28.1 % (42-52); Hemoglobin 9.2 g/dL (14.0-18.0); Immature Granulocytes % (auto) 0.7 %; Lymphocytes # (auto) 1.08 K/uL (1.2-3.4); Mean Corpuscular Hgb Conc 32.7 g/dL (32-36); Mean Corpuscular Volume 90.9 fL (80-100); Mean Platelet Volume 9.4 fL (7.4-10.4); Monocytes # (auto) 1.17 K/uL (0.11-0.59); Monocytes % (auto) 7.6 %; Neutrophils # (auto) 12.79 K/uL (1.4-6.5); Neutrophils % (auto) 83.4 %; Platelet Count 345 K/uL (130-400); Red Blood Count 3.09 M/uL (4.7-6.1); White Blood Count 15.34 K/uL (4.8-10.8)
[2018-08-30 07:35] LABS: Prothrombin Time 45.7 Seconds (9.0-12.0)
[2018-08-30 07:45] LABS: BUN Creatinine Ratio 23.1 (10-20); Calcium 8.4 mg/dl (8.5-10.1); Creatinine Clr Calc Pharmacy 27.7 ml/min; Est GFR (African American) 33.1; Est GFR (Non-African American) 28.6; Potassium 4.2 mmol/L (3.5-5.1)
[2018-08-30] MEDS: ASPIRIN 81 MG CHEW PO SCH (08:08)
[2018-08-30] MEDS: METOPROLOL SUCC 25MG EXT REL TAB PO SCH (08:08)
[2018-08-30] MEDS: SIMVASTATIN 20 MG TAB PO SCH (08:08)
[2018-08-30] MEDS: MEGESTROL ACETATE SUSP 400 MG/10 ML UDC PO SCH (08:08)
[2018-08-30] MEDS: DOCUSATE SODIUM 100 MG CAP PO SCH ×2 (08:08→20:36)
[2018-08-30] MEDS: INSULIN ASPART 100 UNITS/ML 3 ML PEN SC SCH ×4 (08:40→20:39)
[2018-08-30] MEDS: INSULIN GLARGINE SOLOSTAR 100 UNITS/ML 3 ML PEN SC SCH ×2 (08:41→20:37)
--- NOTE | 2018-08-30 08:56 | Progress Note ---
DATE: 08/30/2018 Mr. Cortés was seen today. He still does not feel well. He had some vomiting this morning. He denies abdominal pain or dysphagia. He just has a "poor appetite". He is on room air. Did not complain of problems with his breathing. He is really not complaining of much pain in his chest. He just "doesn't feel good." My recommendation will be to increase physical therapy with him. He drained very little from his PleurX. I was pleased with his x-ray yesterday. The final diagnosis from his plaque was benign calcified pleural plaque. There was chronic inflammation seen, however, there does not appear to be a malignancy in this. From our standpoint, he is stable. We are going to pull the PleurX out tomorrow, but he still does not feel well and I am very concerned about his poor p.o. intake. ARELY
[2018-08-30] MEDS ORDERED: PIPERACILLIN/TAZOBACTAM 3.375 GM in DEXTROSE 5% 100 ML IV SCH (12:00)
--- NOTE | 2018-08-30 16:27 | Hospitalist Progress Note ---
Date of Service August 30, 2018 Assessment & Plan (1) Chest pain: DDX but not limited to: Pulm: PNA, empyema, abscess, transudative pleural effusion, infectious effusion, Cardiac: Pericarditis, pericardial tamponade, CHF , ACS, aortic dissection Pain is likely secondary to pleurisy secondary to pneumonia and effusion Consult pulmonology-appreciate input and recommendation Obtain CT scan chest without contrast given renal function Continue IV Zosyn for possible empyema and pneumonic effusion Check MRSA swab, if negative we will not implement MRSA coverage Doubt any ACS Echo of the heart: Moderate pulmonary hypertension, mild right ventricular dilatation with decreased right ventricular systolic function, mild to moderate left and right atrial dilatation, bicuspid aortic valve with regurgitation, mild aortic stenosis, EF of 55-60% Status post removal of chest tubes Chest pain is better but is still there Denies any significant shortness of Will ask for PT and OT evaluation Likely need placement (2) Pleural effusion, left: Associated with chest pain with deep breathing Seems to be pneumonic effusion Appreciate thoracic surgery input and recommendation Status post left thoracotomy and decortication Remains stable following left lung decortication Draining serosanguineous fluid through the chest tube Status post removal of all chest tubes Clinically stable without any shortness of breath at rest We will continue antibiotic for 1 or 2 more days Discontinue Zosyn (3) DEMPSEY (dyspnea on exertion): Likely has chronic diastolic heart failure Secondary to effusion Remains stable (4) Persistent atrial fibrillation: -Rate controlled on metoprolol and digoxin, continue -Dig level 0.1 today -Warfarin for anticoagulation, INR 6.9, once evening (patient already took a dose this a.m.) -5 mg vitamin K given secondary to likely thoracentesis -Repeat INR in a.m. -INR remains high at 5.6 today -Put another dose of vitamin K this morning -Received 2 units of fresh frozen plasma this morning before the procedure -INR 1.7 at 11:00 Will continue-Coumadin as appropriate Heart rate is controlled INR is 5.6 today We will get 2.5 mg vitamin K orally Monitor INR (5) T2DM (type 2 diabetes mellitus): -Unknown A1c, last noted in outpatient records 06/29/17 was 7.4 -Hold outpatient metformin and glipizide, would recommend discontinuing metformin as outpatient given current renal function -Lantus/NovoLog per protocol -A1c in a.m-7.2. Doses have been adjusted (6) HTN (hypertension): -Blood pressure on low side, will hold home hydralazine -Continue metoprolol with parameters (7) HLD (hyperlipidemia): -Continue statin (8) CKD (chronic kidney disease) stage 3, GFR 30-59 ml/min: -Acute kidney failure on CKD -Baseline creatinine 1.71.9 -BUN/creatinine today 41 and 2.04 -Follow BMP and avoid nephrotoxic agents -Patient on metformin as outpatient, would recommend discontinuing given current renal function -Creatinine 2.03 -Creatinine remains elevated ,more than 2 (9) Anemia: -H/H 10.0 and 31.4 -H/H in 01/2017 13.2 and 40 -Normocytic normochromic -Monitor CBC, may be secondary CKD stage III -Hemoglobin dropped to 7.9 today -We will transfuse 1 unit of packed red blood cell -Hemoglobin has gone up to 8.9 following blood transfusion (10) Elevated INR: -INR supratherapeutic at 6.9, hold Coumadin -Check PT/INR in a.m. -5 mg of vitamin K ordered secondary to likely thoracentesis -No signs or symptoms of current bleeding -INR 5.5 today 08/27 We will give vitamin K 2.5 mg orally and monitor INR INR is improving Monitor INR and restart Coumadin when appropriate INR is 3.5 today, will hold Coumadin for today INR is 5 today, 08/30 We will discontinue Zosyn and monitor INR And restart Coumadin when appropriate (11) DVT prophylaxis: -INR supratherapeutic at 6.9, hold Coumadin -Check PT/INR Disposition: to be determined, case management consulted [facility] Subjective This is a 87-year-old male with significant PMH of persistent A. 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 08/24 The Patient Was Seen and Examined in Telemetry Unit He continues to have mild to moderate shortness of breath at rest He also complains to have chest pain with inspiration Denies any fever and/or chills, denies any nausea and/or vomiting 08/25 The patient was seen and examined in telemetry unit He still complains to have chest pain on breathing Denies any abdominal pain, nausea and/or vomiting Denies any fever and/or chills 08/26 The patient was seen and examined in telemetry He is a status post #1 day after an extensive decortication of his left lung. Clinically stable 08/27 He has been feeling a lot better today He is out of bed when a chair He denies any significant symptoms 08/28 Remains lethargic but denies any chest pain and/or palpitation Chest tubes have been out 08/29 Remains generally weak and lethargic Complains to have bilateral chest wall pain the lower region Not yet ready to be discharged 08/30 Patient was seen and examined the medical floor He remains stable with generalized weakness Denies any more chest pain and/or shortness of breath His Pleurx catheter will be out today Physical Exam 2 Vital Signs (Past 24 Hours): Last Vital Signs Temp 36.5 C 08/30/18 15:11 Pulse 70 08/30/18 15:11 Resp 16 08/30/18 15:11 BP 136/68 08/30/18 15:11 Pulse Ox 98 08/30/18 15:11 Physical Exam: No apparent distress at rest but generally very weak Constitutional: well developed, + acute distress (Minimal acute distress), + ill appearing and + thin Eyes: PERRL, conjunctivae normal, anicteric sclerae ENMT: external ear and nose normal, oropharynx normal Respiratory: normal respiratory effort and + uses accessory muscles; no respiratory distress Auscultation: + diminished lung sounds (More on the left than the right base), + crackles (Minimal crackles left base) and + wheezes Cardiovascular: Rate/Rhythm: regular rate and regular rhythm Heart Sounds: normal S1 and normal S2 Gastrointestinal (Abdomen): Inspection/Auscultation: abdomen normal to inspection and normal bowel sounds Percussion/Palpation: abdomen soft Neurologic: Alert, awake and oriented. Results & Data Laboratory Results Short CBC 08/30/18 Range/Units 06:56 WBC 15.34 H (4.8-10.8) K/uL Hgb 9.2 L (14.0-18.0) g/dL Hct 28.1 L (42-52) % Plt Count 345 (130-400) K/uL BMP 08/30/18 06:56 Sodium 138 Potassium 4.2 Chloride 108 H Carbon Dioxide 23 BUN 47 H Creatinine 2.02 H D Glucose 176 H Calcium 8.4 L Generally very weak and Medications Administered Current Inpatient Medications Acetaminophen (Tylenol) 650 mg PO Q6 [facility] Stop: 09/25/18 11:59 Last Admin: 08/30/18 12:25 Dose: 650 mg Aspirin (Aspirin Chew) 81 mg PO QAM [facility] Stop: 09/23/18 08:59 Last Admin: 08/30/18 08:08 Dose: 81 mg Dextrose (Dextrose 50%) 25 - 50 ml IV UD PRN; Protocol PRN Reason: Hypoglycemia Protocol Stop: 09/22/18 16:54 Digoxin (Lanoxin) 0.125 mg PO DAILY@1600 [facility] Stop: 09/23/18 15:59 Last Admin: 08/29/18 15:43 Dose: 0.125 mg Docusate Sodium (Colace) 100 mg PO BID [facility] Stop: 09/24/18 20:59 Last Admin: 08/30/18 08:08 Dose: 100 mg Glucagon (Glucagen) 1 mg SQ UD PRN; Protocol PRN Reason: Hypoglycemia Protocol Stop: 09/22/18 16:54 Glucose (Glucose 40%) 15 - 30 gm PO UD PRN; Protocol PRN Reason: Hypoglycemia Protocol Stop: 09/22/18 16:54 Glucose (Dex4 Glucose) 4 - 8 tabs PO UD PRN; Protocol PRN Reason: Hypoglycemia Protocol Stop: 09/22/18 16:54 Sodium Chloride (Nss 250ml) 250 mls @ 15 mls/hr IV .[id number] PRN PRN Reason: For Transfusion Stop: 09/27/18 12:19 Piperacillin Sod/Tazobactam (Sod 3.375 gm/ Dextrose) 115 mls @ 28.75 mls/hr IV Q8H [facility]; Protocol Stop: 08/31/18 23:59 Last Admin: 08/30/18 12:24 Dose: 28.8 mls/hr Insulin Aspart (Novolog Flexpen) 0 units SC ACHS [facility] Stop: 09/26/18 07:29 Last Admin: 08/30/18 12:43 Dose: 5 units Insulin Glargine (Lantus Solostar Pen) 0 units SC BID [facility]; Protocol Stop: 09/26/18 08:59 Last Admin: 08/30/18 08:41 Dose: 5 units Levalbuterol HCl (Xopenex 0.63 Mg/3 Ml Neb) 0.63 mg NEB Q6R PRN PRN Reason: Shortness Of Breath Or Wheezing Stop: 09/22/18 16:54 Megestrol Acetate (Megace) 400 mg PO [facility] Stop: 09/28/18 18:14 Last Admin: 08/30/18 08:08 Dose: 400 mg Metoprolol Succinate (Toprol Xl) 12.5 mg PO [facility] Stop: 09/23/18 08:59 Last Admin: 08/30/18 08:08 Dose: 12.5 mg Miscellaneous (Carbohydrates For Hypoglycemia) 15 - 30 gm PO UD PRN PRN Reason: Hypoglycemia Treatment Stop: 09/22/18 16:54 Miscellaneous Information (Consult) 1 ea N/A UD PRN PRN Reason: Consult Stop: 08/31/18 23:59 Morphine Sulfate (Morphine Sulfate) 1 - 2 mg IV Q1H PRN PRN Reason: Pain Stop: 09/08/18 19:24 Last Admin: 08/27/18 04:58 Dose: 2 mg Nitroglycerin (Nitrostat) 0.4 mg SL PRN PRN PRN Reason: Moderate Pain Stop: 09/22/18 12:43 Last Admin: 08/23/18 12:55 Dose: 0.4 mg Ondansetron HCl (Zofran) 4 mg IV Q6H PRN PRN Reason: Nausea Stop: 09/22/18 16:54 Last Admin: 08/26/18 07:44 Dose: 4 mg Oxycodone HCl (Roxicodone Immediate Rel) 5 mg PO Q6H PRN PRN Reason: Pain Stop: 09/08/18 19:24 Last Admin: 08/27/18 08:17 Dose: 5 mg Polyethylene Glycol (Miralax Powder Packet) 17 gm PO DAILY PRN PRN Reason: Constipation Stop: 09/22/18 16:54 Simvastatin (Zocor) 20 mg PO [facility] Stop: 09/23/18 08:59 Last Admin: 08/30/18 08:08 Dose: 20 mg _ (1) Chest pain Chest pain type: unspecified Ischemic chest pain type: Qualified Code(s): R07.9 - Chest pain, unspecified (2) T2DM (type 2 diabetes mellitus) Diabetes mellitus rn long term care insulin use: without rn long term care use Diabetes mellitus complication status: with kidney complications Diabetes mellitus complication detail: with chronic kidney disease Diabetic retinopathy severity : Proliferative retinopathy type: Diabetes mellitus macular edema: Laterality: Chronic kidney disease stage: stage 3 (moderate) Qualified Code(s ): E11.22 - Type 2 diabetes mellitus with diabetic chronic kidney disease; N18.3 - Chronic kidney disease, stage 3 (moderate) (3) HTN (hypertension) Hypertension type: essential hypertension Qualified Code(s): I10 - Essential (primary) hypertension (4) HLD (hyperlipidemia) Hyperlipidemia type: unspecified Qualified Code(s): E78.5 - Hyperlipidemia, unspecified (5) Anemia Anemia type: unspecified type Iron deficiency anemia type: Vitamin B12 deficiency anemia type: Folate deficiency anemia type: Bone marrow failure anemia type: Hemolytic anemia type: Other causes of anemia: Chronic kidney disease stage: Qualified Code(s): D64.9 - Anemia, unspecified
[2018-08-30] MEDS: DIGOXIN 0.125 MG TAB PO SCH (16:47)
[2018-08-31] MEDS: ACETAMINOPHEN 325 MG TAB PO SCH ×4 (06:06→23:39)
[2018-08-31 07:42] LABS: Prothrombin Time 46.3 Seconds (9.0-12.0)
[2018-08-31 07:44] LABS: INR 5.1 (0.9-1.1)
--- NOTE | 2018-08-31 07:45 | XRay Report ---
XR chest 1V portable CLINICAL HISTORY: s/p decortication postoperative evaluation COMPARISON STUDY: 08/29/2018 FINDINGS: Unchanged exam compared to the prior study. Left-sided chest tube is unsteady unchanged in appearance. Increased density left mid to lower lung region is stable. Bilateral calcified pleural plaques IMPRESSION: Stable unchanged examination compared to the prior study. Left-sided drainage catheter i s unchanged in appearance with no significant pneumothorax. The above report was generated using voice recognition software. It may contain grammatical, syntax or spelling errors. Electronically signed by: Jose Alberto Mcintyre M.D. 08/31/2018 7:44 AM
[2018-08-31 07:47] LABS: Creatinine Clr Calc Pharmacy 37.4 ml/min; Est GFR (African American) 47.5
[2018-08-31] MEDS: ASPIRIN 81 MG CHEW PO SCH (08:58)
[2018-08-31] MEDS: DOCUSATE SODIUM 100 MG CAP PO SCH ×2 (09:00→19:51)
[2018-08-31] MEDS: MEGESTROL ACETATE SUSP 400 MG/10 ML UDC PO SCH (09:01)
[2018-08-31] MEDS: METOPROLOL SUCC 25MG EXT REL TAB PO SCH (09:02)
[2018-08-31] MEDS: SIMVASTATIN 20 MG TAB PO SCH (09:05)
[2018-08-31] MEDS: INSULIN ASPART 100 UNITS/ML 3 ML PEN SC SCH ×4 (09:21→20:59)
[2018-08-31] MEDS: INSULIN GLARGINE SOLOSTAR 100 UNITS/ML 3 ML PEN SC SCH ×2 (09:26→20:58)
--- NOTE | 2018-08-31 12:51 | XRay Report ---
XR chest 1V portable HISTORY: 87 years-old Male tube removal status post left-sided chest tube removal COMPARISON: Chest radiograph 08/31/2018 TECHNIQUE: Portable AP view the chest FINDINGS: Status post removal of the left-sided chest tubes. No definite residual pneumothorax identified. Unch anged left pleural effusion/pleural thickening with persistent left greater than right bilateral opac ities. Bilateral calcified pleural plaques redemonstrated. Mild cardiomegaly with calcification the t horacic aortic arch. Degenerative changes of the shoulders and spine. IMPRESSION: 1. Status post removal of the left-sided chest tubes. No pneumothorax identified. 2. Stable findings as above. The above report was generated using voice recognition software. It may contain grammatical, syntax o r spelling errors. Electronically signed by: Rohan Jeffrey M.D. 08/31/2018 12:50 PM
[2018-08-31] MEDS: DIGOXIN 0.125 MG TAB PO SCH (16:52)
--- NOTE | 2018-08-31 18:40 | Hospitalist Progress Note ---
Date of Service August 31, 2018 Assessment & Plan (1) Chest pain: Pain likely secondary to pleurisy secondary to pneumonia/effusion Appreciate Pulmonology Input Received IV Zosyn Doubt any ACS ECHO:Moderate pulmonary htn, mild right ventricular dilatation with decreased right ventricular systolic function, mild to moderate left and right atrial dilatation, bicuspid aortic valve with regurgitation, mild aortic stenosis, EF of 55-60% S/P chest tube placement and removal Chest pain resolved (2) Pleural effusion, left: Likely secondary to pneumonic effusion Appreciate thoracic surgery input S/P left thoracotomy and decortication S/P removal of chest tubes/PleuX Catheter Completed IV Abx (3) DEMPSEY (dyspnea on exertion): Likely has chronic diastolic heart failure Secondary to effusion stable (4) Persistent atrial fibrillation: Supratherapeutic INR Rate controlled Continue metoprolol, digoxin INR: 5.1 Hold coumadin No bleeding issues monitor INR (5) T2DM (type 2 diabetes mellitus): A1C: 7.2 Hold metformin and glipizide May need to DC Metformin upon DC 2/2 renal function Continue Lantus/NovoLog per protocol (6) HTN (hypertension): Stable Continue metoprolol Resume Hydralazine as above (7) HLD (hyperlipidemia): Continue statin (8) CKD (chronic kidney disease) stage 3, GFR 30-59 ml/min: Acute kidney failure on CKD Baseline Cr:1.71.9 Cr at baseline monitor renal function (9) Anemia: Anemia of chronic disease S/P 2 units PRBCs Hb stable monitor (10) Elevated INR: INR supratherapeutic S/P Vitamin K Hold Coumadin Monitor INR (11) DVT prophylaxis: INR supratherapeutic Code Status Full Code Disposition: [facility] Subjective Patient is seen and examined at bedside Reports dyspnea on exertion Denies chest pain, nausea, dizziness PleurX catheter removed today Physical Exam Vital Signs (Past 24 Hours): Last Vital Signs Temp 36.9 C 08/31/18 15:18 Pulse 73 08/31/18 16:52 Resp 16 08/31/18 15:18 BP 149/74 H 08/31/18 15:18 Pulse Ox 96 08/31/18 15:18 Physical Exam: Physical Exam: Vitals signs as noted above General Appearance:Moderately built and nourished, no apparent distress Head: normocephalic, Atraumatic Eyes: normal inspection, EOMI Neck: supple, Trachea midline Respiratory/Chest: Decreased breath sounds, CTA Chest: Left sided PleurX cath removed Cardiovascular: S1, S2, No murmur Abdomen/GI:Soft, Non tender, Bowel sounds present Extremities/Musculoskelatal:normal inspection, no edema Neurologic/Psych:AAOX3, grossly no focal neurological deficits Skin: normal color, warm Results & Data Laboratory Results [facility] 08/31/18 06:36 Creatinine 1.50 H D (1) Chest pain Chest pain type: unspecified Qualified Code(s): R07.9 - Chest pain, unspecified (2) T2DM (type 2 diabetes mellitus) Diabetes mellitus termite helper insulin use: without termite helper use Diabetes mellitus complication status: with kidney complications Diabetes mellitus complication detail: with chronic kidney disease Chronic kidney disease stage: stage 3 (moderate) Qualified Code(s): E11.22 - Type 2 diabetes mellitus with diabetic chronic kidney disease; N18.3 - Chronic kidney disease, stage 3 (moderate) (3) HTN (hypertension) Hypertension type: essential hypertension Qualified Code(s): I10 - Essential (primary) hypertension (4) HLD (hyperlipidemia) Hyperlipidemia type: unspecified Qualified Code(s): E78.5 - Hyperlipidemia, unspecified (5) Anemia Anemia type: unspecified type Qualified Code(s): D64.9 - Anemia, unspecified
--- NOTE | 2018-08-31 21:31 | Progress Note ---
DATE: 08/31/2018 Mr. Cortés looks a little bit better today. 96% saturation on room air. We removed his PleurX catheter. I think his x-ray looks good and he should have resolution of the changes that we see given time. This is all benign. It was probably blood, although I am not sure why that would have occurred. We removed his PleurX catheter. With the patient lying down with his left arm elevated, the pleurx sutures were cut. He was anesthetized with 1% Xylocaine and then the fibrous cuff was removed and quickly pulled the tube. Antimicrobial occlusive dressing was placed. His x-ray showed no evidence of a pneumothorax. I think Mr. Cortés is going to improve now, but being almost 88, it is going to be slow going for the near future. ARELY
[2018-09-01] MEDS: ACETAMINOPHEN 325 MG TAB PO SCH ×2 (05:53→12:45)
[2018-09-01 06:44] LABS: Hematocrit (blood only) 31.4 % (42-52); Mean Corpuscular Hgb Conc 31.8 g/dL (32-36); Mean Platelet Volume 9.5 fL (7.4-10.4); Platelet Count 489 K/uL (130-400); RDW Coefficient of Variation 15.3 % (11.5-14.5); RDW Standard Deviation 49.6 fL (36.4-46.3); Red Blood Count 3.45 M/uL (4.7-6.1); White Blood Count 11.09 K/uL (4.8-10.8)
[2018-09-01 07:01] LABS: Prothrombin Time 40.3 Seconds (9.0-12.0)
[2018-09-01 07:08] LABS: INR 4.4 (0.9-1.1)
[2018-09-01 07:28] LABS: Potassium 4.4 mmol/L (3.5-5.1)
[2018-09-01 07:29] LABS: BUN Creatinine Ratio 23.1 (10-20); Calcium 8.5 mg/dl (8.5-10.1); Creatinine Clr Calc Pharmacy 41.5 ml/min; Est GFR (African American) 53.9; Est GFR (Non-African American) 46.5
[2018-09-01] MEDS: ASPIRIN 81 MG CHEW PO SCH (08:16)
[2018-09-01] MEDS: DOCUSATE SODIUM 100 MG CAP PO SCH (08:16)
[2018-09-01] MEDS: METOPROLOL SUCC 25MG EXT REL TAB PO SCH (08:16)
[2018-09-01] MEDS: SIMVASTATIN 20 MG TAB PO SCH (08:16)
[2018-09-01] MEDS: MEGESTROL ACETATE SUSP 400 MG/10 ML UDC PO SCH (08:17)
[2018-09-01] MEDS: INSULIN GLARGINE SOLOSTAR 100 UNITS/ML 3 ML PEN SC SCH (09:08)
[2018-09-01] MEDS: INSULIN ASPART 100 UNITS/ML 3 ML PEN SC SCH ×2 (09:09→13:04)
--- NOTE | 2018-09-01 10:15 | Surgery Progress Note ---
Date of Service September 01, 2018 Assessment & Plan (1) Pleural effusion, left: -pt. is s/p LVATS with decortication: -cultures checked and are noted to be (-) for growth -surgical path is (-) for malignancy -continue pain control measures -continue coughing, deep breathing, and ambulation -INR remains > 2.0 so will not order lovenox Subjective Pt. notes he feels more comfortable without his chest tubes in. He denies CP and feels as though his breathing has improved. He denies N/V or abdominal pain and states his apatite has slightly improved. Physical Exam Vital Signs (Past 24 Hours): Last Vital Signs Temp 36.8 C 09/01/18 07:59 Pulse 107 H 09/01/18 07:59 Resp 16 09/01/18 07:59 BP 149/82 H 09/01/18 07:59 Pulse Ox 97 09/01/18 07:59 Constitutional: well developed and well nourished Respiratory: no respiratory distress and no labored breathing BS have a slight decrease at left base
[2018-09-01 11:17] VITALS: BP 156/75; TEMP 97.5; O2SAT 98
--- NOTE | 2018-09-01 14:15 | Hospitalist Progress Note ---
Date of Service September 01, 2018 Assessment & Plan (1) Chest pain: Pain likely secondary to pleurisy secondary to pneumonia/effusion Appreciate Pulmonology Input Received IV Zosyn Doubt any ACS ECHO:Moderate pulmonary htn, mild right ventricular dilatation with decreased right ventricular systolic function, mild to moderate left and right atrial dilatation, bicuspid aortic valve with regurgitation, mild aortic stenosis, EF of 55-60% S/P chest tube placement and removal Chest pain resolved (2) Pleural effusion, left: Likely secondary to pneumonic effusion Appreciate thoracic surgery input S/P left thoracotomy and decortication S/P removal of chest tubes/PleuX Catheter Completed IV Abx Needs follow up with CT surgery as outpatient (3) DEMPSEY (dyspnea on exertion): Likely has chronic diastolic heart failure Secondary to effusion stable (4) Persistent atrial fibrillation: Supratherapeutic INR Rate controlled Continue metoprolol, digoxin INR: 5.1>>4.4 Hold coumadin No bleeding issues monitor INR (5) T2DM (type 2 diabetes mellitus): A1C: 7.2 Hold metformin and glipizide May need to DC Metformin upon DC 2/2 renal function Continue Lantus/NovoLog per protocol (6) HTN (hypertension): Stable Continue metoprolol Resume Hydralazine as able (7) HLD (hyperlipidemia): Continue statin (8) CKD (chronic kidney disease) stage 3, GFR 30-59 ml/min: Acute kidney failure on CKD Baseline Cr:1.71.9 Cr at baseline monitor renal function (9) Anemia: Anemia of chronic disease S/P 2 units PRBCs Hb stable monitor (10) Elevated INR: INR supratherapeutic S/P Vitamin K Hold Coumadin for now Monitor INR (11) DVT prophylaxis: INR supratherapeutic Code Status Full Code Disposition: Follow[facility]up: [facility] Subjective Patient is seen and examined at bedside Doing well today Offers no complaints Denies chest pain, SOB, nausea, dizziness PleurX catheter removed yesterday Discussed with CT surgery today Physical Exam Vital Signs (Past 24 Hours): Last Vital Signs Temp 36.4 C L 09/01/18 11:16 Pulse 77 09/01/18 11:16 Resp 16 09/01/18 11:16 BP 156/75 H 09/01/18 11:16 Pulse Ox 98 09/01/18 11:16 Physical Exam: Physical Exam: Vitals signs as noted above General Appearance:Moderately built and nourished, no apparent distress Head: normocephalic, Atraumatic Eyes: normal inspection, EOMI Neck: supple, Trachea midline Respiratory/Chest: Decreased breath sounds, CTA Chest: Left sided PleurX cath removed--site in dressing Cardiovascular: S1, S2, No murmur Abdomen/GI:Soft, Non tender, Bowel sounds present Extremities/Musculoskelatal:normal inspection, no edema Neurologic/Psych:AAOX3, grossly no focal neurological deficits Skin: normal color, warm Results & Data Laboratory Results Short CBC 09/01/18 Range/Units 06:11 WBC 11.09 H (4.8-10.8) K/uL Hgb 10.0 L (14.0-18.0) g/dL Hct 31.4 L (42-52) % Plt Count 489 H (130-400) K/uL BMP 09/01/18 06:11 Sodium 139 Potassium 4.4 Chloride 109 H Carbon Dioxide 22 BUN 31 H Creatinine 1.35 Glucose 94 Calcium 8.5 (1) Chest pain Chest pain type: unspecified Qualified Code(s): R07.9 - Chest pain, unspecified (2) T2DM (type 2 diabetes mellitus) Diabetes mellitus salvage determiner insulin use: without salvage determiner use Diabetes mellitus complication status: with kidney complications Diabetes mellitus complication detail: with chronic kidney disease Chronic kidney disease stage: stage 3 (moderate) Qualified Code(s): E11.22 - Type 2 diabetes mellitus with diabetic chronic kidney disease; N18.3 - Chronic kidney disease, stage 3 (moderate) (3) HTN (hypertension) Hypertension type: essential hypertension Qualified Code(s): I10 - Essential (primary) hypertension (4) HLD (hyperlipidemia) Hyperlipidemia type: unspecified Qualified Code(s): E78.5 - Hyperlipidemia, u nspecified (5) Anemia Anemia type: unspecified type Qualified Code(s): D64.9 - Anemia, unspecified
--- NOTE | 2018-09-01 14:23 | Discharge Summary ---
Date of Service September 01, 2018 Admission HPI Per Admitting Provider This is a 87-year-old male with significant PMH of persistent A. 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 Symptoms are associated with DEMPSEY that has been progressively worsening. Patient states that he woke up approximately 2 AM with stabbing precordial chest pain that radiated to back, constant, wax and wane in severity, worse with inspiration. Denies any recent viral illness, cough, hemoptysis, associated diaphoresis or nausea, edema, orthopnea, PND. Never had anything like this in past. Further denies fever, chills, sweats, lightheadedness, dizziness, abdominal pain, change in bowel or urinary habits, hematuria, melena. Appetite has been decreased for the past 2-3 months with associated weight loss. Unsure of amount of weight loss, but lady friend states, "he is getting down to skin and bones." He ambulates with cane. Admission Exam Per Admitting Provider Gen: Tall, thin, M, NAD, sitting up in bed, pleasant, conversing easily Head: Normocephalic, Atraumatic Eyes: Sclera normal, no conjunctival injection, PERRLA, EOMI ENT: Gross hearing intact, normal pharynx, mucous membranes moist but poor dentition Neck: supple, no adenopathy, + JVD, no bruit, Resp: Clear to auscultation b/l with decreased breath sounds LLL, no wheeze, rales, rhonchi. Normal insp/exp effort, no accessory muscle use CV: irregular rate, irrregular rhythm, no murmur, + gallop noted throughout precordium with associated subtle rub, no ectopy Abd: +BS x 4, soft, nontender, nondistended Musculoskeletal: moves extremities active rom x 4, strength intact, good bi tri operator strength Extremities: No edema bilaterally Skin: warm, moist, no rash, negative turgor, cap refill < 2sec Neuro: Alert and oriented x 3, speech normal, good mood/affect, cran nerve 2-12 intact grossly : deferred Principal Diagnosis Discharge Information Discharge Diagnosis Pleural Effusion S/P LVATS with decortication Discharge Goals Decrease discomfort,Improve disease control, Improve function Discharge Activity Limitations Per instructions/follow-up Discharge Data Allergies Allergy/AdvReac Type Severity Reaction Status Date / Time No Known Allergies Allergy Mild Unverified 08/25/18 12:53 Consultations 08/23/18 14:05 ED Decision to Admit Stat 08/23/18 14:57 Consult Pulmonology Routine 08/23/18 16:55 Consult Case Management - Discharge Planning Routine 08/24/18 12:52 Consult Thoracic Surgery Routine Procedures Performed Operation Date: 08/25/18 13:00 Actual Procedures p Left Thoracoscopy with Extensive Decortication and partial Pleurectomy(Left) - Rafael Alebrts MD, FACS CT Chest: 1. Moderate complex left pleural effusion with areas of probable pleural nodularity. Pulmonary consultation for consideration of a diagnostic thoracentesis is recommended in follow-up 2. Left lower lobe airspace opacities, likely representing compressive atelectasis 3. Extensive pleurodiaphragmatic calcifications raise the possibility of asbestos related disease 4. Enlarged multinodular thyroid goiter 5. Mild mediastinal lymphadenopathy 6. Dilatation of the ascending thoracic aorta which measures 45 mm Ordered Studies 08/23/18 14:57 CT chest wo con Stat 08/25/18 13:10 US guide vascular access Stat Hospital Course (1) Chest pain: Pain likely secondary to pleurisy secondary to pneumonia/effusion Appreciate Pulmonology Input Received IV Zosyn Doubt any ACS ECHO:Moderate pulmonary htn, mild right ventricular dilatation with decreased right ventricular systolic function, mild to moderate left and right atrial dilatation, bicuspid aortic valve with regurgitation, mild aortic stenosis, EF of 55-60% S/P chest tube placement and removal Chest pain resolved (2) Pleural effusion, left: Likely secondary to pneumonic effusion Appreciate thoracic surgery input S/P left thoracotomy and decortication S/P removal of chest tubes/PleuX Catheter Completed IV Abx Needs follow up with CT surgery as outpatient (3) DEMPSEY (dyspnea on exertion): Likely has chronic diastolic heart failure Secondary to effusion stable (4) Persistent atrial fibrillation: Supratherapeutic INR Rate controlled Continue metoprolol, digoxin INR: 5.1>>4.4 Hold coumadin No bleeding issues monitor INR (5) T2DM (type 2 diabetes mellitus): A1C: 7.2 Hold metformin and glipizide May need to DC Metformin upon DC 2/2 renal function Continue Lantus/NovoLog per protocol (6) HTN (hypertension): Stable Continue metoprolol Resume Hydralazine as able (7) HLD (hyperlipidemia): Continue statin (8) CKD (chronic kidney disease) stage 3, GFR 30-59 ml/min: Acute kidney failure on CKD Baseline Cr:1.71.9 Cr at baseline monitor renal function (9) Anemia: Anemia of chronic disease S/P 2 units PRBCs Hb stable monitor (10) Elevated INR: INR supratherapeutic S/P Vitamin K Hold Coumadin for now Monitor INR (11) DVT prophylaxis: INR supratherapeutic Code Status Full Code Disposition: [facility] Total Time Total Time Spent Total Time Spent (In Minutes): 42 minutes Discharge Plan Discharge Items Patient Disposition: Home - Home Health Services Reason For Visit: CHEST PAIN Discharge Diagnosis: Pleural Effusion S/P LVATS with decortication Discharge Goals: Decrease discomfort, Improve disease control and Improve function Activity: Per 'Additional Instructions' section Exercise/Sports: Gradually increase as tolerated Non-emergency contact: Primary Care Provider and Surgeon Call non-emergency contact if: you have any medication questions, your symptoms worsen, your pain is not controlled, your pain is worsening, your pain is unusual for you, your pain is concerning for you, you have a fever, your wound has increased redness, your wound has increased drainage and your wound pain has increased Diet: Carb Consistent or DM2 and Heart Healthy Addtl Provider Instructions: Follow up with your Primary Care Physician in 1 week Follow up with your CT surgeon in 1 week as advised Get PT/INR on and follow up with your Physician for Coumadin dosing Do not take coumadin today as your INR is 4.4 (09/01/18) today Seek immediate medical attention if your symptoms reoccur or worsen Prescriptions: New docusate sodium 100 mg Capsule 100 mg PO BID PRN (Reason: constipation) 30 Days Qty: 60 RF: 0 polyethylene glycol 3350 [Miralax] 17 gram Powder In Packet 17 g PO DAILY PRN (Reason: constipation) 30 Days Qty: 30 RF: 0 Continued glipizide 10 mg Tablet 10 mg PO BID RF: 0 metformin 850 mg Tablet 850 mg PO BID RF: 0 hydralazine 25 mg Tablet 12.5 mg PO BID RF: 0 tramadol 50 mg Tablet 50 mg PO Q6H PRN (Reason: Pain) RF: 0 acetaminophen [Tylenol Extra Strength] 500 mg Tablet 1,000 mg PO UD RF: 0 simvastatin 20 mg Tablet 20 mg PO QAM RF: 0 warfarin 5 mg Tablet 5 mg PO 4XWK RF: 0 warfarin 5 mg Tablet 2.5 mg PO 3XWK RF: 0 aspirin 81 mg Tablet,Chewable 81 mg PO QAM RF: 0 digoxin 125 mcg Tablet 0.125 mg PO QAM RF: 0 metoprolol succinate 25 mg Tablet Extended Release 24 Hr 12.5 mg PO QAM RF: 0 Stand-Alone Forms: [facility] Discharge Orders: Discharge Order (Routine); Ordered 09/01/18 Ordered By: Irwin Story Admission Data Admit Date/Time: 08/24/18 16:28 Attending Provider: Irwin Story Admit Provider: Sherry Wayne Primary Care Provider: Gopi Valdivia Other Providers: Jama Meza ; Sherry Wayne ; Maureen Alonso ; Rafael Alberts ; Hansa Ng Service: Medical Other Interventions: Discharge Summary Assessment (RN) Last Done: 09/01/18 14:40 Pending Studies at Discharge: No DC Date/Time DO NOT enter until pt leaves facility: 09/01/18 15:49
[2018-09-01 14:41] VITALS: PULSE 84
[2018-09-01] MEDS: DIGOXIN 0.125 MG TAB PO SCH (15:42)
== END 2018-09-01 15:49 | disposition home health service (06) | DRG 164 ==
LOC: 2E 12:14 → ED 12:14 → SUATTDRO 15:03 → 2E 16:25 → SUATTDRO 08-24 16:28 → 3N 08-27 19:05

== ENCOUNTER 2018-09-30 13:49 | Inpatient (IN) ==
[~2018-09-30 13:49] MED LIST: FUROSEMIDE 20 MG in SYRINGE 0 ML IV ONE
[2018-09-30 14:52] LABS: Basophils # (auto) 0.01 K/uL (0-0.2); Basophils % (auto) 0.1 %; Eosinophils # (auto) 0.06 K/uL (0-0.5); Eosinophils % (auto) 0.5 %; Hematocrit (blood only) 23.1 % (42-52); Hemoglobin 7.3 g/dL (14.0-18.0); Immature Granulocytes # (auto) 0.04 K/uL (0.00-0.02); Immature Granulocytes % (auto) 0.3 %; Lymphocytes # (auto) 0.97 K/uL (1.2-3.4); Lymphocytes % (auto) 7.5 %; Mean Corpuscular Hgb Conc 31.6 g/dL (32-36); Mean Corpuscular Volume 91.3 fL (80-100); Mean Platelet Volume 9.7 fL (7.4-10.4); Monocytes # (auto) 0.99 K/uL (0.11-0.59); Monocytes % (auto) 7.7 %; Neutrophils # (auto) 10.79 K/uL (1.4-6.5); Neutrophils % (auto) 83.9 %; Platelet Count 343 K/uL (130-400); RDW Standard Deviation 55.9 fL (36.4-46.3); Red Blood Count 2.53 M/uL (4.7-6.1); White Blood Count 12.86 K/uL (4.8-10.8)
[2018-09-30] MEDS ORDERED: DEXTROSE 50% 50 ML SYRINGE IV STA (14:54)
--- NOTE | 2018-09-30 15:01 | XRay Report ---
XR chest 1V portable CLINICAL HISTORY: weakness COMPARISON STUDY: 09/28/2018 FINDINGS: The cardiac and mediastinal contours remain stable. There are bilateral calcified pleural p laques. There is a small left pleural effusion with stable left basilar atelectasis/scarring.. There is no failure. There is no acute parenchymal consolidation. There is mild elevation of the left hemid iaphragm.[ IMPRESSION: 1. No active disease in the chest 2. Bilateral calcified pleural plaques 3. Stable small left pleural effusion with stable left basilar atelectasis/scarring Electronically signed by: Jordan Peña M.D. 09/30/2018 2:59 PM
[2018-09-30 15:08] LABS: INR 3.3 (0.9-1.1); Partial Thromboplastin Ratio 1.3; Partial Thromboplastin Time 36.4 Seconds (21.0-31.0); Prothrombin Time 31.2 Seconds (9.0-12.0)
[2018-09-30 15:16] LABS: Albumin Level 2.4 gm/dl (3.4-5.0); BUN Creatinine Ratio 25.5 (10-20); Calcium 8.3 mg/dl (8.5-10.1); Creatinine Clr Calc Pharmacy 31.1 ml/min; Est GFR (African American) 38.6; Est GFR (Non-African American) 33.3; Potassium 4.9 mmol/L (3.5-5.1)
--- NOTE | 2018-09-30 15:24 | CT Scan Report ---
CT OF THE CERVICAL SPINE WITHOUT CONTRAST CLINICAL HISTORY: eval for trauma COMPARISON STUDY: No previous studies for comparison. TECHNIQUE: Helical axial images of the cervical spine were obtained without IV contrast. Sagittal a nd coronal reconstructions were viewed. Automated exposure control was utilized for the study. A do se lowering technique was utilized adhering to the principles of ALARA. FINDINGS: Alignment of the cervical spine is anatomic. The craniocervical junction is intact. There i s no acute fracture. There is moderate multilevel facet arthrosis and mild to moderate multilevel deg enerative disc disease. Degenerative changes at the C1-C2 articulation are noted. There is no prevert ebral edema. The thyroid gland is enlarged. This is unchanged since chest CT of August 23, 2018. IMPRESSION: No acute cervical spine fracture or subluxation. Electronically signed by: Vinod Forbes M.D. 09/30/2018 3:22 PM
--- NOTE | 2018-09-30 15:27 | CT Scan Report ---
HEAD CT NONCONTRAST CT DOSE: HISTORY: Fall. eval for trauma TECHNIQUE: Multiaxial CT images of the head were performed without the use of intravenous contrast. A utomated exposure control was utilized for this study. A dose lowering technique was utilized adheri ng to the principles of ALARA. Comparison: Head CT 07/15/2010. Findings: The paranasal sinuses and mastoid air cells are clear. The calvarium and skull base are int act. There is no mass, hematoma, midline shift, acute infarct. White matter hypodensity is nonspecifi c but suggestive of microvascular ischemic change. The ventricles and sulci demonstrate mild age-rela deborah involutional changes. Impression: No significant change compared to the prior study. No acute intracranial abnormality. Electronically signed by: Riky Glynn M.D. 09/30/2018 3:26 PM
[2018-09-30 15:32] LABS: Albumin Globulin Ratio 0.5 (0.9-2); Bilirubin,Total 0.1 mg/dl (0.2-1); Globulin 4.8 gm/dl (2.5-4.0); Total Protein 7.2 gm/dl (6.4-8.2)
[2018-09-30 15:38] LABS: Hypochromasia Present; Ovalocytes 1+; Schistocytes 1+
[2018-09-30] MEDS ORDERED: TRAMADOL HCL 50 MG TABLET PO PRN (17:24)
[2018-09-30] MEDS ORDERED: DOCUSATE SODIUM 100 MG CAP PO PRN (17:24)
[2018-09-30 17:54] LABS: Appearance Urine Clear (Clear); Bilirubin Urine Negative (Negative); Blood Urine Negative (Negative); Color Urine Yellow; Glucose Urine UA Negative (Negative); Ketones Urine Negative (Negative); Leukocyte Esterase Urine Negative (Negative); Nitrite Urine Negative (Negative); Protein Urine Negative (Negative); Specific Gravity Urine 1.017 (1.000-1.030); Urobilinogen Urine Negative (Negative)
--- NOTE | 2018-09-30 18:24 | History & Physical Report ---
Date of Service September 30, 2018 Assessment & Plan (1) Hypoglycemia: Likely related to metformin and glipizide use at home. With renal function at stage III CKD, metformin is contraindicated at this time. This will be discontinued. Glipizide is also at max dose and causes significant hypogly cemic events especially in older people. This will be held during admission and will be reconsidered at time of discharge. Close monitoring by primary care follow-up post discharge is definitely recommended. While in the hospital will monitor blood sugars and check A1c. Will cover loosely with NovoLog as needed and not give carbohydrate coverage. No long-acting insulin will be given either. Continue to monitor closely overnight for improvement and stability and blood sugars. (2) Symptomatic anemia: Baseline H&H is difficult to determine as patient also receives care at the [facility]. However, he is significantly lower than discharge 1 month ago and is now symptomatic with shortness of breath on exertion. He denies any bleeding. Will order iron studies. He does not have a history of colonoscopy or endoscopy that he reports. He denies any history of peptic ulcer disease that is known to him. Anemia is normocytic and may be related to chronic disease or worsening kidney function. Consider GI consult after initial workup. 2 units of blood will be given overnight. (3) Weakness: Weakness and dizziness related to the fall is likely related to symptomatic anemia in the setting of significant hypoglycemia. The patient denies having checked his blood sugars at home in the past 2 weeks while he was feeling ill. We will continue to monitor closely and will have physical and occupational therapy evaluate him formally while in the hospital.Fall precautions. (4) DEMPSEY (dyspnea on exertion): Likely related to symptomatic anemia, however, will repeat echocardiogram as this is not be performed in 2 years. He does see cardiology regularly and at last visit with Dr. Coughlin his digoxin was decreased to Wednesday instead of daily. However, he has been taking this daily. Dig level is currently low. Will reduce digoxin to Wednesday at this time. (5) CKD (chronic kidney disease), stage III: He is at baseline around 1.7. Continue to avoid nephrotoxic substances DC metformin as above. Renally dose medications as needed. (6) T2DM (type 2 diabetes mellitus): Repeat A1c this admission. Hypoglycemia and plan as above. (7) Fall: No secondary injuries status post falls at home. PT/OT evaluations as per plan above. CT of the C-spine without contrast was negative for acute cervical spine fracture or subluxation. Head CT was not significant revealed no acute intracranial abnormality. (8) Atrial fibrillation: On metoprolol for rate control 12.5 mg p.o. daily. Coumadin has been held in setting of anemia. Of note Coumadin was recently decreased to 2.5 mg p.o. daily by [facility]. (9) DVT prophylaxis: INRs are currently therapeutic secondary to recent warfarin use which will be held in the setting of anemia. SCDs Full code as discussed with patient on admission Disposition-to telemetry DO [facility] History of Present Illness Chief Complaint: I feel weak and dizzy and fell twice Primary Care Provider: Gopi Valdivia 88-year-old man who was recently admitted for a thoracoscopy last month presents today with significant weakness and some dizziness. He reports feeling poorly for the past week reporting nausea and abdominal discomfort in the evenings. The abdominal pain is central nonradiating and described as a cramping. 1 week ago he reported some vomiting that was normal without blood or other concern. This did not persist but abdominal pain was associated with nausea each night. He denies any changes in his bowels. He reports some blurry vision that began 2 days ago that is new for him. He reports 2 falls with the first attempt last night where he tried to go to the bathroom and slid down lightly to the floor. This was witnessed by his friend who concurred there was no loss of consciousness and he did not hit anything hard on his body. His son came over and had to pick him up off the floor and put him in his recliner to sleep in overnight. This morning around 6 AM when he went to get out of his recliner chair he again had to slide down on the floor and could not get up. His son came over and this prompted the ER visit today. The patient uses a walker at baseline but is rather independent, reportedly using a walker only intermittent he denies any abdominal pain at this time and abdomen is soft and nontender to palpation. He denies any nausea or vomiting. Lab work revealed hypoglycemia on arrival with a blood sugar of 31. D50 was given which increase the sugar to 105. The patient reports eating breakfast this morning including galeana, eggs and some other kind of drink. He reports eating well over the past week without issue. He denies any weight changes. He denies any urinary symptoms, strokelike symptoms, chest pain. He does report some shortness of breath with exertion that is new for him over the past 2 weeks. He denies any cough, fevers, chills or other issues. He takes metformin 850 mg twice daily at home for diabetes as well as glipizide 10 mg twice daily. Other notable labs include an H&H of 7.3 and 23. Discharge lab work on 09/01 revealed an H&H of 05/04. Allergies Allergy/AdvReac Type Severity Reaction Status Date / Time No Known Allergies Allergy Mild Verified 09/30/18 15:08 Home Medications Home Medications Medication Instructions Recorded Confirmed Type acetaminophen [Tylenol Extra 1,000 mg PO DIRECTED PRN 08/23/18 09/30/18 History Strength] aspirin 81 mg PO QAM 08/23/18 09/30/18 History digoxin 0.125 mg PO QAM 08/23/18 09/30/18 History glipizide 10 mg PO BID 08/23/18 09/30/18 History hydralazine 12.5 mg PO BID 08/23/18 09/30/18 History metformin 850 mg PO BID 08/23/18 09/30/18 History metoprolol succinate 12.5 mg PO QAM 08/23/18 09/30/18 History simvastatin 20 mg PO QAM 08/23/18 09/30/18 History tramadol 50 mg PO Q6H PRN 08/23/18 09/30/18 History warfarin 2.5 mg PO DAILY 08/23/18 09/30/18 History docusate sodium 100 mg PO BID PRN 30 Days #60 cap 09/01/18 09/30/18 Rx polyethylene glycol 3350 [Miralax] 17 g PO DAILY PRN 30 Days #30 ea 09/01/18 09/30/18 Rx Past Med/Surg History Medical History Encounter for pre-operative examination Anemia DVT prophylaxis DEMPSEY (dyspnea on exertion) Pleural effusion, left T2DM (type 2 diabetes mellitus) Persistent atrial fibrillation HTN (hypertension) HLD (hyperlipidemia) CKD (chronic kidney disease) stage 3, GFR 30-59 ml/min Hx of polymyalgia rheumatica 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 Rechecking INR AM of 08/25/2018. If still elevated plan on administering FFP. Bifascicular block Surgical History History of total right knee replacement (TKR) History of lumbar surgery 2012. [facility] (Dr. Blanc). MAC 4, DLx1. 8.0ETT. History of cataract extraction Family History Other Family history non-contributory Social History Preferred Language: Syriac Beliefs That Will Affect Care: None marital status: Single Current Living Situation: Alone Current Living Situation Comment: Girlfriend (Edna) stays frequently Feels Safe at Home: Yes Smoking Status: Former smoker Hx Alcohol Use: No Hx Substance Use: No Review of Systems At least ten systems were reviewed and negative except as indicated in HPI above. Physical Exam Vital Signs (Past 24 Hours): Last Vital Signs Temp 37 C 09/30/18 13:58 Pulse 78 09/30/18 17:48 Resp 16 09/30/18 17:48 BP 144/53 H 09/30/18 17:01 Pulse Ox 97 09/30/18 17:48 CONSTITUTIONAL: WNWD, vitals as above, generally well-appearing EYES: EOMI bilaterally, PERRL, normal conjuctivae, no scleral icterus ENT: oropharynx clear, MMM RESPIRATORY: clear to auscultation bilaterally, no crackles, rales or wheezes, normal respiratory effort CARDIOVASCULAR: regular rate and rhythm, S1 and 2 heard without murmurs, gallops or rubs, no JVD, no peripheral edema GASTROINTESTINAL: normal bowel sounds, soft, nontender, nondistended MUSCULOSKELETAL: strength 5/5 throughout, limited flexion of R knee (chronic) head is normocephalic and atraumatic SKIN: warm and dry NEUROLOGIC: patellar, brachioradialis reflexes 2+ bilat. PERRL, EOMI, no facial palsy, no dysarthria. CN 2-12 grossly intact, no sensory deficit, normal cognition, normal speech PSYCHIATRIC: alert cooperative and oriented to person, place and time. Results & Data Laboratory Results Short CBC 09/30/18 Range/Units 14:35 WBC 12.86 H (4.8-10.8) K/uL Hgb 7.3 L (14.0-18.0) g/dL Hct 23.1 L (42-52) % Plt Count 343 (130-400) K/uL BMP 09/30/18 14:35 Sodium 140 Potassium 4.9 Chloride 113 H Carbon Dioxide 22 BUN 45 H Creatinine 1.77 H Glucose 31 L* Calcium 8.3 L Liver Function 09/30/18 Range/Units 14:35 Total Bilirubin 0.1 L (0.2-1) mg/dl AST 18 (15-37) U/L ALT 27 (12-78) U/L Alkaline Phosphatase 62 (45-117) U/L Albumin 2.4 L (3.4-5.0) gm/dl Urine 09/30/18 Range/Units 17:31 Urine Color Yellow Urine Appearance Clear (Clear) Urine pH 5.0 (4.5-7.5) Ur Specific [place] 1.017 (1.000-1.030) Urine Protein Negative (Negative) Urine Glucose (UA) Negative (Negative) Medications Administered Current Inpatient Medications Aspirin (Aspirin) 81 mg PO QAM [facility] Stop: 10/31/18 08:59 Digoxin (Lanoxin) 0.125 mg PO QAM [facility] Stop: 10/31/18 08:59 Docusate Sodium (Colace) 100 mg PO BID PRN PRN Reason: constipation Stop: 10/30/18 17:23 Hydralazine HCl (Apresoline) 12.5 mg PO BID [facility] Stop: 10/30/18 20:59 Metoprolol Succinate (Toprol Xl) 12.5 mg PO QAM [facility] Stop: 10/31/18 08:59 Simvastatin (Zocor) 20 mg PO QAM [facility] Stop: 10/31/18 08:59 Tramadol HCl (Ultram) 50 mg PO Q6H PRN PRN Reason: Pain Stop: 10/30/18 17:23 Code Status & VTE Plan Code Status Full VTE Prophylaxis Plan VTE Prophylaxis will be ordered: Yes Reason for no VTE drug order: Contraindicated (anemia) Critical Care Time Critical Care Time: No (1) T2DM (type 2 diabetes mellitus) Diabetes mellitus prison insulin use: without prison use Diabetes mellitus complication status: with kidney complications Diabetes mellitus complication detail: with chronic kidney disease Chronic kidney disease stage: stage 3 (moderate) Qualified Code(s): E11.22 - Type 2 diabetes mellitus with diabetic chronic kidney disease; N18.3 - Chronic kidney disease, stage 3 (moderate)
[2018-09-30] MEDS ORDERED: GLUCOSE 40% GEL 15 GM TUBE PO PRN (18:41)
[2018-09-30] MEDS ORDERED: CARBOHYDRATES FOR HYPOGLYCEMIA PO PRN (18:41)
[2018-09-30] MEDS ORDERED: GLUCAGON FOR INJ 1 MG VIAL SQ PRN (18:41)
[2018-09-30] MEDS ORDERED: DEXTROSE 50% 50 ML SYRINGE IV PRN (18:41)
[2018-09-30] MEDS ORDERED: POLYETHYLENE (MIRALAX) 17 GM PACK PO PRN (18:41)
[2018-09-30] MEDS ORDERED: ACETAMINOPHEN 325 MG TAB PO PRN (18:41)
[2018-09-30] MEDS ORDERED: ONDANSETRON INJ 2 MG/ML 2 ML VIAL IV PRN (18:41)
[2018-09-30] MEDS ORDERED: GLUCOSE 10 TABS/TUBE PO PRN (18:41)
[2018-09-30] MEDS ORDERED: SODIUM CHLORIDE 0.9% 250 ML IV PRN (19:27)
[2018-09-30] MEDS ORDERED: ACETAMINOPHEN 325 MG TAB PO SCH (20:00)
[2018-09-30] MEDS ORDERED: Nursing to Pharmacy Communication ONE (20:07)
[2018-09-30 20:33] LABS: Ferritin 441.5 ng/ml (8-388)
[2018-09-30] MEDS: INSULIN ASPART 100 UNITS/ML 3 ML PEN SC SCH (20:58)
--- NOTE | 2018-09-30 23:22 | Emergency Department Note ---
Entered by Trevor Ramsey acting as a scribe for Heron Maloney MD History of Present Illness General Chief complaint: Neuro Symptoms/Deficit Stated complaint: SENT BY DOC POSSIBLE STROKE LAST NIGHT,FALL Time Seen by Provider: 09/30/18 14:37 Source: patient History of Present Illness Onset (ago): day(s) (yesterday) Location: left and right Pain Consistency: + constant Quality: + other (weakness) Associated symptoms: + other (Positive for SOB, a cough, mild neck pain, and low blood sugar. Negative for LOC, fever, back pain, chills, bloody/black stool, CP, headache, abdominal pain, urinary symptoms, confusion, and difficulty swallowing/speaking.) The patient is an 88 year old male who presents to the emergency department with complaints of constant weakness beginning yesterday. The patient states that he fell twice last night and hit his head because of his weakness. He notes that he has generalized weakness and is not weak in only one side. He also complains of SOB, a cough, and mild neck pain. He reports that he has a history of diabetes, and he states that his blood sugar was low. He denies any LOC, fever, back pain, chills, bloody/black stool, CP, headache, abdominal pain, urinary symptoms, confusion, and difficulty speaking/swallowing. The patient notes that he has a history of Afib and is on warfarin. Home Medications Home Medications Medication Instructions Recorded Confirmed Type acetaminophen [Tylenol Extra 1,000 mg PO DIRECTED PRN 08/23/18 09/30/18 History Strength] aspirin 81 mg PO QAM 08/23/18 09/30/18 History digoxin 0.125 mg PO QAM 08/23/18 09/30/18 History glipizide 10 mg PO BID 08/23/18 09/30/18 History hydralazine 12.5 mg PO BID 08/23/18 09/30/18 History metformin 850 mg PO BID 08/23/18 09/30/18 History metoprolol succinate 12.5 mg PO QAM 08/23/18 09/30/18 History simvastatin 20 mg PO QAM 08/23/18 09/30/18 History tramadol 50 mg PO Q6H PRN 08/23/18 09/30/18 History warfarin 2.5 mg PO DAILY 08/23/18 09/30/18 History docusate sodium 100 mg PO BID PRN 30 Days #60 cap 09/01/18 09/30/18 Rx polyethylene glycol 3350 [Miralax] 17 g PO DAILY PRN 30 Days #30 ea 09/01/18 09/30/18 Rx Allergies Allergy/AdvReac Type Severity Reaction Status Date / Time No Known Allergies Allergy Mild Verified 09/30/18 15:08 Past Med/Surg History Medical History Encounter for pre-operative examination Anemia DVT prophylaxis DEMPSEY (dyspnea on exertion) Pleural effusion, left T2DM (type 2 diabetes mellitus) Persistent atrial fibrillation HTN (hypertension) HLD (hyperlipidemia) CKD (chronic kidney disease) stage 3, GFR 30-59 ml/min Hx of polymyalgia rheumatica 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 Rechecking INR AM of 08/25/2018. If still elevated plan on administering FFP. Bifascicular block Surgical History History of total right knee replacement (TKR) History of lumbar surgery 2012. [facility] (Dr. Blanc). MAC 4, DLx1. 8.0ETT. 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 and A total of 10 systems reviewed and were otherwise negative Physical Exam Vital Signs Vital Signs - 24 hr 09/30/18 13:58 09/30/18 14:33 09/30/18 14:46 Temperature 37 C Temperature Source Oral Sepsis Recent Fever Within 48 Hours No Sepsis Action Taken by Nursing No Action Required Pulse Rate 70 81 Pulse Rate [Apical] Pulse Rate from SpO2 Sensor Pulse Rhythm Regular Pulse Rhythm [Apical] Pulse Strength Normal Pulse Strength [Apical] Respiratory Rate 20 18 Respiratory Effort / Characteristics Non-Labored Spontaneous Respiratory Depth Normal Respiratory Pattern Regular Blood Pressure 119/58 L 139/59 L Blood Pressure [Left Arm] Blood Pressure Mean 78 85 Blood Pressure Mean [Left Arm] Blood Pressure Position Sitting Blood Pressure Position [Left Arm] Pulse Oximetry 93 97 98 Oxygen Delivery Method Room Air Room Air Room Air 09/30/18 15:30 09/30/18 15:40 09/30/18 16:00 Temperature Temperature Source Sepsis Recent Fever Within 48 Hours Sepsis Action Taken by Nursing Pulse Rate 80 74 64 Pulse Rate [Apical] Pulse Rate from SpO2 Sensor 72 67 65 Pulse Rhythm Pulse Rhythm [Apical] Pulse Strength Pulse Strength [Apical] Respiratory Rate 17 17 16 Respiratory Effort / Characteristics Respiratory Depth Respiratory Pattern Blood Pressure 135/62 Blood Pressure [Left Arm] Blood Pressure Mean 86 Blood Pressure Mean [Left Arm] Blood Pressure Position Blood Pressure Position [Left Arm] Pulse Oximetry 92 93 99 Oxygen Delivery Method Room Air Room Air Room Air 09/30/18 16:01 09/30/18 16:14 09/30/18 16:30 Temperature Temperature Source Sepsis Recent Fever Within 48 Hours Sepsis Action Taken by Nursing Pulse Rate 73 75 86 Pulse Rate [Apical] Pulse Rate from SpO2 Sensor 74 79 Pulse Rhythm Pulse Rhythm [Apical] Pulse Strength Pulse Strength [Apical] Respiratory Rate 22 28 H 25 H Respiratory Effort / Characteristics Respiratory Depth Respiratory Pattern Blood Pressure 123/60 131/62 Blood Pressure [Left Arm] Blood Pressure Mean 81 85 Blood Pressure Mean [Left Arm] Blood Pressure Position Blood Pressure Position [Left Arm] Pulse Oximetry 98 100 Oxygen Delivery Method Room Air 09/30/18 17:00 09/30/18 17:01 09/30/18 17:48 Temperature Temperature Source Sepsis Recent Fever Within 48 Hours Sepsis Action Taken by Nursing Pulse Rate 81 83 78 Pulse Rate [Apical] Pulse Rate from SpO2 Sensor 87 87 Pulse Rhythm Pulse Rhythm [Apical] Pulse Strength Pulse Strength [Apical] Respiratory Rate 30 H 20 16 Respiratory Effort / Characteristics Respiratory Depth Respiratory Pattern Blood Pressure 144/53 H Blood Pressure [Left Arm] Blood Pressure Mean 83 Blood Pressure Mean [Left Arm] Blood Pressure Position Blood Pressure Position [Left Arm] Pulse Oximetry 96 97 97 Oxygen Delivery Method Room Air Room Air Room Air 09/30/18 18:40 09/30/18 18:45 09/30/18 20:47 Temperature 37.3 C 36.7 C Temperature Source Oral Oral Sepsis Recent Fever Within 48 Hours Sepsis Action Taken by Nursing Pulse Rate 94 H 70 Pulse Rate [Apical] 84 Pulse Rate from SpO2 Sensor Pulse Rhythm Irregular Pulse Rhythm [Apical] Irregular Pulse Strength Normal Pulse Strength [Apical] Normal Respiratory Rate 18 18 Respiratory Effort / Characteristics Non-Labored Spontaneous Respiratory Depth Normal Respiratory Pattern Regular Blood Pressure 127/58 L Blood Pressure [Left Arm] 154/61 H Blood Pressure Mean 81 Blood Pressure Mean [Left Arm] 92 Blood Pressure Position Lying Blood Pressure Position [Left Arm] Lying Pulse Oximetry 98 96 Oxygen Delivery Method Room Air 09/30/18 21:06 09/30/18 21:21 09/30/18 21:51 Temperature 36.7 C 36.8 C 36.8 C Temperature Source Oral Oral Oral Sepsis Recent Fever Within 48 Hours Sepsis Action Taken by Nursing Pulse Rate 99 H 74 65 Pulse Rate [Apical] Pulse Rate from SpO2 Sensor Pulse Rhythm Irregular Irregular Irregular Pulse Rhythm [Apical] Pulse Strength Normal Normal Normal Pulse Strength [Apical] Respiratory Rate 18 18 18 Respiratory Effort / Characteristics Respiratory Depth Respiratory Pattern Blood Pressure 141/66 H 152/66 H 145/66 H Blood Pressure [Left Arm] Blood Pressure Mean 91 94 92 Blood Pressure Mean [Left Arm] Blood Pressure Position Lying Lying Lying Blood Pressure Position [Left Arm] Pulse Oximetry 96 95 95 Oxygen Delivery Method 09/30/18 22:51 09/30/18 23:10 Temperature 36.9 C 36.9 C Temperature Source Oral Oral Sepsis Recent Fever Within 48 Hours Sepsis Action Taken by Nursing Pulse Rate 64 64 Pulse Rate [Apical] Pulse Rate from SpO2 Sensor Pulse Rhythm Irregular Pulse Rhythm [Apical] Pulse Strength Normal Pulse Strength [Apical] Respiratory Rate 17 18 Respiratory Effort / Characteristics Respiratory Depth Respiratory Pattern Blood Pressure 142/69 H 133/68 Blood Pressure [Left Arm] Blood Pressure Mean 93 89 Blood Pressure Mean [Left Arm] Blood Pressure Position Lying Lying Blood Pressure Position [Left Arm] Pulse Oximetry 99 76 L Oxygen Delivery Method General: Non-ill appearing older male in no acute distress. HEENT: Normal cephalic atraumatic. Pupils are equal round and reactive to light. Extraocular movements are intact. Oropharynx is pink with moist mucous membranes. No swelling of the mouth lips or tongue. Neck: Supple with a midline trachea. No meningeal signs or stiffness, no JVD or bruits. No Stridor. Chest: Clear to auscultation bilaterally. No wheezes or rhonchi. No increased work of breathing. Heart: Irregularly irregular, not tachycardic. Abdomen: Soft nontender, nondistended without rebound guarding or rigidity. Extremities: No cyanosis clubbing or edema. No calf tenderness or asymmetry Spine/Back. Non tender to palpation. No CVA tenderness Skin: Good turgor without rashes. Neurologic exam: Cranial nerves two through 12 are intact. Motor and sensation are intact and symmetrical throughout. Course 1435: Past medical records reviewed. The patient was evaluated in room D4, and a complete history and physical examination were performed. 1505: The patient's blood sugar was 31. 1515: I reevaluated and updated the patient. 1619: I rechecked the patient. He denies any blood in his stool. His blood sugar is up to 100. 1632: Upon reevaluation, the patient is stable. I discussed the results and treatment plan with the patient. He verbalizes understanding and agreement. I discussed the patient's case with Debbie Sweeney PA-C, [facility]. The patient will be evaluated for further management and care. Consultations Consultation #1: I reviewed the patient's case with Debbie Sweeney PA-C, [facility]. She will evaluate the patient for further management. Time: 16:32 Administered Medications Dextrose (Dextrose 50%) 25 - 50 ml IV UD PRN; Protocol PRN Reason: Hypoglycemia Protocol Stop: 10/30/18 18:40 Last Admin: 09/30/18 21:32 Dose: 50 ml Documented by: [id number] Glucose (Dex4 Glucose) 4 - 8 tabs PO UD PRN; Protocol PRN Reason: Hypoglycemia Protocol Stop: 10/30/18 18:40 Last Admin: 09/30/18 21:12 Dose: 8 tabs Documented by: [id number] Hydralazine HCl (Apresoline) 12.5 mg PO BID ABHILASH Stop: 10/30/18 20:59 Last Admin: 09/30/18 20:34 Dose: 12.5 mg Documented by: [id number] Insulin Aspart (Novolog Flexpen) 0 units SC ACHS ABHILASH Stop: 10/30/18 20:59 Last Admin: 09/30/18 20:58 Dose: Not Given Documented by: [id number] Cosigned by: [id number] Miscellaneous (Carbohydrates For Hypoglycemia) 15 - 30 gm PO UD PRN PRN Reason: Hypoglycemia Treatment Stop: 10/30/18 18:40 Last Admin: 09/30/18 20:52 Dose: 30 gm Documented by: [id number] Discontinued Medications Acetaminophen (Tylenol) 650 mg PO PRE-TREAT ABHILASH Stop: 09/30/18 20:01 Last Admin: 09/30/18 20:29 Dose: 650 mg Documented by: [id number] Dextrose (Dextrose 50%) 50 ml IV NOW STA Stop: 09/30/18 14:55 Last Admin: 09/30/18 15:02 Dose: 50 ml Documented by: [id number] Diphenhydramine HCl (Benadryl Capsule) 25 mg PO PRE-TREAT ABHILASH Stop: 09/30/18 20:01 Last Admin: 09/30/18 20:29 Dose: 25 mg Documented by: [id number] Medical Decision Making Differential Diagnosis Differential diagnoses include: dizziness, arrhythmia, hypoglycemia, head injury, CVA, and electrolyte/metabolic abnormalities. Medical Records Attestation: I reviewed the patient's medical records. Home Medications Current Medication List: was personally reviewed by me Laboratory Data Attestation: I reviewed the patient's lab results. Result diagrams: 09/30/18 14:35 09/30/18 14:35 Lab Results 09/30/18 09/30/18 09/30/18 Range/Units 14:25 14:26 14:35 WBC 12.86 H (4.8-10.8) K/uL RBC 2.53 L (4.7-6.1) M/uL Hgb 7.3 L (14.0-18.0) g/dL Hct 23.1 L (42-52) % MCV 91.3 (80-100) fL MCH 28.9 (25-34) pg MCHC 31.6 L (32-36) g/dL RDW Std Deviation 55.9 H (36.4-46.3) fL RDW Coeff of Leena 17.0 H (11.5-14.5) % Plt Count 343 (130-400) K/uL MPV 9.7 (7.4-10.4) fL Immature Gran % (Auto) 0.3 % Neut % (Auto) 83.9 % Lymph % (Auto) 7.5 % [place] % (Auto) 7.7 % Eos % (Auto) 0.5 % Baso % (Auto) 0.1 % Immature Gran # (Auto) 0.04 H (0.00-0.02) K/uL Neut # (Auto) 10.79 H (1.4-6.5) K/uL Lymph # (Auto) 0.97 L (1.2-3.4) K/uL [place] # (Auto) 0.99 H (0.11-0.59) K/uL Eos # (Auto) 0.06 (0-0.5) K/uL Baso # (Auto) 0.01 (0-0.2) K/uL Hypochromasia Present Ovalocytes 1+ Schistocytes 1+ PT (9.0-12.0) Seconds INR (0.9-1.1) APTT (21.0-31.0) Seconds PTT Ratio Sodium (136-145) mmol/L Potassium (3.5-5.1) mmol/L Chloride (98-107) mmol/L Carbon Dioxide (21-32) mmol/L Anion Gap (3-11) BUN (7-18) mg/dl Creatinine (0.6-1.4) mg/dl Est Cr Clr Drug Dosing ml/min Est GFR ( Amer) Est GFR (Non-Af Amer) BUN/Creatinine Ratio (10-20) Glucose (70-99) mg/dl POC Glucose 36 L* 37 L* (70-99) Calcium (8.5-10.1) mg/dl Iron (35-175) mcg/dl TIBC (250-450) mcg/dl Ferritin (8-388) ng/ml Total Bilirubin (0.2-1) mg/dl AST (15-37) U/L ALT (12-78) U/L Alkaline Phosphatase (45-117) U/L Total Protein (6.4-8.2) gm/dl Albumin (3.4-5.0) gm/dl Globulin (2.5-4.0) gm/dl Albumin/Globulin Ratio (0.9-2) TSH (0.300-4.500) uIu/ml Urine Color Urine Appearance (Clear) Urine pH (4.5-7.5) Ur Specific [place] (1.000-1.030) Urine Protein (Negative) Urine Glucose (UA) (Negative) Urine Ketones (Negative) Urine Blood (Negative) Urine Nitrite (Negative) Urine Bilirubin (Negative) Urine Urobilinogen (Negative) Ur Leukocyte Esterase (Negative) Digoxin (0.8-2.0) ng/ml Blood Type Antibody Screen Crossmatch 09/30/18 09/30/18 09/30/18 Range/Units 14:35 14:35 14:35 WBC (4.8-10.8) K/uL RBC (4.7-6.1) M/uL Hgb (14.0-18.0) g/dL Hct (42-52) % MCV (80-100) fL MCH (25-34) pg MCHC (32-36) g/dL RDW Std Deviation (36.4-46.3) fL RDW Coeff of Leena (11.5-14.5) % Plt Count (130-400) K/uL MPV (7.4-10.4) fL Immature Gran % (Auto) % Neut % (Auto) % Lymph % (Auto) % [place] % (Auto) % Eos % (Auto) % Baso % (Auto) % Immature Gran # (Auto) (0.00-0.02) K/uL Neut # (Auto) (1.4-6.5) K/uL Lymph # (Auto) (1.2-3.4) K/uL [place] # (Auto) (0.11-0.59) K/uL Eos # (Auto) (0-0.5) K/uL Baso # (Auto) (0-0.2) K/uL Hypochromasia Ovalocytes Schistocytes PT 31.2 H (9.0-12.0) Seconds INR 3.3 H (0.9-1.1) APTT 36.4 H (21.0-31.0) Seconds PTT Ratio 1.3 Sodium 140 (136-145) mmol/L Potassium 4.9 (3.5-5.1) mmol/L Chloride 113 H (98-107) mmol/L Carbon Dioxide 22 (21-32) mmol/L Anion Gap 5.0 (3-11) BUN 45 H (7-18) mg/dl Creatinine 1.77 H (0.6-1.4) mg/dl Est Cr Clr Drug Dosing 31.1 ml/min Est GFR ( Amer) 38.6 Est GFR (Non-Af Amer) 33.3 BUN/Creatinine Ratio 25.5 H (10-20) Glucose 31 L* (70-99) mg/dl POC Glucose (70-99) Calcium 8.3 L (8.5-10.1) mg/dl Iron (35-175) mcg/dl TIBC (250-450) mcg/dl Ferritin (8-388) ng/ml Total Bilirubin 0.1 L (0.2-1) mg/dl AST 18 (15-37) U/L ALT 27 (12-78) U/L Alkaline Phosphatase 62 (45-117) U/L Total Protein 7.2 (6.4-8.2) gm/dl Albumin 2.4 L (3.4-5.0) gm/dl Globulin 4.8 H (2.5-4.0) gm/dl Albumin/Globulin Ratio 0.5 L (0.9-2) TSH 0.328 (0.300-4.500) uIu/ml Urine Color Urine Appearance (Clear) Urine pH (4.5-7.5) Ur Specific [place] (1.000-1.030) Urine Protein (Negative) Urine Glucose (UA) (Negative) Urine Ketones (Negative) Urine Blood (Negative) Urine Nitrite (Negative) Urine Bilirubin (Negative) Urine Urobilinogen (Negative) Ur Leukocyte Esterase (Negative) Digoxin 0.1 L (0.8-2.0) ng/ml Blood Type Antibody Screen Crossmatch 09/30/18 09/30/18 09/30/18 Range/Units 14:35 14:52 15:22 WBC (4.8-10.8) K/uL RBC (4.7-6.1) M/uL Hgb (14.0-18.0) g/dL Hct (42-52) % MCV (80-100) fL MCH (25-34) pg MCHC (32-36) g/dL RDW Std Deviation (36.4-46.3) fL RDW Coeff of Leena (11.5-14.5) % Plt Count (130-400) K/uL MPV (7.4-10.4) fL Immature Gran % (Auto) % Neut % (Auto) % Lymph % (Auto) % [place] % (Auto) % Eos % (Auto) % Baso % (Auto) % Immature Gran # (Auto) (0.00-0.02) K/uL Neut # (Auto) (1.4-6.5) K/uL Lymph # (Auto) (1.2-3.4) K/uL [place] # (Auto) (0.11-0.59) K/uL Eos # (Auto) (0-0.5) K/uL Baso # (Auto) (0-0.2) K/uL Hypochromasia Ovalocytes Schistocytes PT (9.0-12.0) Seconds INR (0.9-1.1) APTT (21.0-31.0) Seconds PTT Ratio Sodium (136-145) mmol/L Potassium (3.5-5.1) mmol/L Chloride (98-107) mmol/L Carbon Dioxide (21-32) mmol/L Anion Gap (3-11) BUN (7-18) mg/dl Creatinine (0.6-1.4) mg/dl Est Cr Clr Drug Dosing ml/min Est GFR ( Amer) Est GFR (Non-Af Amer) BUN/Creatinine Ratio (10-20) Glucose (70-99) mg/dl POC Glucose 34 L* 105 H (70-99) Calcium (8.5-10.1) mg/dl Iron 29 L (35-175) mcg/dl TIBC 216 L (250-450) mcg/dl Ferritin 441.5 H (8-388) ng/ml Total Bilirubin (0.2-1) mg/dl AST (15-37) U/L ALT (12-78) U/L Alkaline Phosphatase (45-117) U/L Total Protein (6.4-8.2) gm/dl Albumin (3.4-5.0) gm/dl Globulin (2.5-4.0) gm/dl Albumin/Globulin Ratio (0.9-2) TSH (0.300-4.500) uIu/ml Urine Color Urine Appearance (Clear) Urine pH (4.5-7.5) Ur Specific [place] (1.000-1.030) Urine Protein (Negative) Urine Glucose (UA) (Negative) Urine Ketones (Negative) Urine Blood (Negative) Urine Nitrite (Negative) Urine Bilirubin (Negative) Urine Urobilinogen (Negative) Ur Leukocyte Esterase (Negative) Digoxin (0.8-2.0) ng/ml Blood Type Antibody Screen Crossmatch 09/30/18 09/30/18 09/30/18 Range/Units 16:58 17:31 20:47 WBC (4.8-10.8) K/uL RBC (4.7-6.1) M/uL Hgb (14.0-18.0) g/dL Hct (42-52) % MCV (80-100) fL MCH (25-34) pg MCHC (32-36) g/dL RDW Std Deviation (36.4-46.3) fL RDW Coeff of Leena (11.5-14.5) % Plt Count (130-400) K/uL MPV (7.4-10.4) fL Immature Gran % (Auto) % Neut % (Auto) % Lymph % (Auto) % [place] % (Auto) % Eos % (Auto) % Baso % (Auto) % Immature Gran # (Auto) (0.00-0.02) K/uL Neut # (Auto) (1.4-6.5) K/uL Lymph # (Auto) (1.2-3.4) K/uL [place] # (Auto) (0.11-0.59) K/uL Eos # (Auto) (0-0.5) K/uL Baso # (Auto) (0-0.2) K/uL Hypochromasia Ovalocytes Schistocytes PT (9.0-12.0) Seconds INR (0.9-1.1) APTT (21.0-31.0) Seconds PTT Ratio Sodium (136-145) mmol/L Potassium (3.5-5.1) mmol/L Chloride (98-107) mmol/L Carbon Dioxide (21-32) mmol/L Anion Gap (3-11) BUN (7-18) mg/dl Creatinine (0.6-1.4) mg/dl Est Cr Clr Drug Dosing ml/min Est GFR ( Amer) Est GFR (Non-Af Amer) BUN/Creatinine Ratio (10-20) Glucose (70-99) mg/dl POC Glucose 33 L* (70-99) Calcium (8.5-10.1) mg/dl Iron (35-175) mcg/dl TIBC (250-450) mcg/dl Ferritin (8-388) ng/ml Total Bilirubin (0.2-1) mg/dl AST (15-37) U/L ALT (12-78) U/L Alkaline Phosphatase (45-117) U/L Total Protein (6.4-8.2) gm/dl Albumin (3.4-5.0) gm/dl Globulin (2.5-4.0) gm/dl Albumin/Globulin Ratio (0.9-2) TSH (0.300-4.500) uIu/ml Urine Color Yellow Urine Appearance Clear (Clear) Urine pH 5.0 (4.5-7.5) Ur Specific [place] 1.017 (1.000-1.030) Urine Protein Negative (Negative) Urine Glucose (UA) Negative (Negative) Urine Ketones Negative (Negative) Urine Blood Negative (Negative) Urine Nitrite Negative (Negative) Urine Bilirubin Negative (Negative) Urine Urobilinogen Negative (Negative) Ur Leukocyte Esterase Negative (Negative) Digoxin (0.8-2.0) ng/ml Blood Type O Positive Antibody Screen NEGATIVE Crossmatch See Detail 09/30/18 09/30/18 09/30/18 Range/Units 20:48 21:09 21:11 WBC (4.8-10.8) K/uL RBC (4.7-6.1) M/uL Hgb (14.0-18.0) g/dL Hct (42-52) % MCV (80-100) fL MCH (25-34) pg MCHC (32-36) g/dL RDW Std Deviation (36.4-46.3) fL RDW Coeff of Leena (11.5-14.5) % Plt Count (130-400) K/uL MPV (7.4-10.4) fL Immature Gran % (Auto) % Neut % (Auto) % Lymph % (Auto) % [place] % (Auto) % Eos % (Auto) % Baso % (Auto) % Immature Gran # (Auto) (0.00-0.02) K/uL Neut # (Auto) (1.4-6.5) K/uL Lymph # (Auto) (1.2-3.4) K/uL [place] # (Auto) (0.11-0.59) K/uL Eos # (Auto) (0-0.5) K/uL Baso # (Auto) (0-0.2) K/uL Hypochromasia Ovalocytes Schistocytes PT (9.0-12.0) Seconds INR (0.9-1.1) APTT (21.0-31.0) Seconds PTT Ratio Sodium (136-145) mmol/L Potassium (3.5-5.1) mmol/L Chloride (98-107) mmol/L Carbon Dioxide (21-32) mmol/L Anion Gap (3-11) BUN (7-18) mg/dl Creatinine (0.6-1.4) mg/dl Est Cr Clr Drug Dosing ml/min Est GFR ( Amer) Est GFR (Non-Af Amer) BUN/Creatinine Ratio (10-20) Glucose (70-99) mg/dl POC Glucose 34 L* 37 L* 38 L* (70-99) Calcium (8.5-10.1) mg/dl Iron (35-175) mcg/dl TIBC (250-450) mcg/dl Ferritin (8-388) ng/ml Total Bilirubin (0.2-1) mg/dl AST (15-37) U/L ALT (12-78) U/L Alkaline Phosphatase (45-117) U/L Total Protein (6.4-8.2) gm/dl Albumin (3.4-5.0) gm/dl Globulin (2.5-4.0) gm/dl Albumin/Globulin Ratio (0.9-2) TSH (0.300-4.500) uIu/ml Urine Color Urine Appearance (Clear) Urine pH (4.5-7.5) Ur Specific [place] (1.000-1.030) Urine Protein (Negative) Urine Glucose (UA) (Negative) Urine Ketones (Negative) Urine Blood (Negative) Urine Nitrite (Negative) Urine Bilirubin (Negative) Urine Urobilinogen (Negative) Ur Leukocyte Esterase (Negative) Digoxin (0.8-2.0) ng/ml Blood Type Antibody Screen Crossmatch 09/30/18 09/30/18 09/30/18 Range/Units 21:28 21:30 21:48 WBC (4.8-10.8) K/uL RBC (4.7-6.1) M/uL Hgb (14.0-18.0) g/dL Hct (42-52) % MCV (80-100) fL MCH (25-34) pg MCHC (32-36) g/dL RDW Std Deviation (36.4-46.3) fL RDW Coeff of Leena (11.5-14.5) % Plt Count (130-400) K/uL MPV (7.4-10.4) fL Immature Gran % (Auto) % Neut % (Auto) % Lymph % (Auto) % [place] % (Auto) % Eos % (Auto) % Baso % (Auto) % Immature Gran # (Auto) (0.00-0.02) K/uL Neut # (Auto) (1.4-6.5) K/uL Lymph # (Auto) (1.2-3.4) K/uL [place] # (Auto) (0.11-0.59) K/uL Eos # (Auto) (0-0.5) K/uL Baso # (Auto) (0-0.2) K/uL Hypochromasia Ovalocytes Schistocytes PT (9.0-12.0) Seconds INR (0.9-1.1) APTT (21.0-31.0) Seconds PTT Ratio Sodium (136-145) mmol/L Potassium (3.5-5.1) mmol/L Chloride (98-107) mmol/L Carbon Dioxide (21-32) mmol/L Anion Gap (3-11) BUN (7-18) mg/dl Creatinine (0.6-1.4) mg/dl Est Cr Clr Drug Dosing ml/min Est GFR ( Amer) Est GFR (Non-Af Amer) BUN/Creatinine Ratio (10-20) Glucose (70-99) mg/dl POC Glucose 42 L* 40 L* 136 H (70-99) Calcium (8.5-10.1) mg/dl Iron (35-175) mcg/dl TIBC (250-450) mcg/dl Ferritin (8-388) ng/ml Total Bilirubin (0.2-1) mg/dl AST (15-37) U/L ALT (12-78) U/L Alkaline Phosphatase (45-117) U/L Total Protein (6.4-8.2) gm/dl Albumin (3.4-5.0) gm/dl Globulin (2.5-4.0) gm/dl Albumin/Globulin Ratio (0.9-2) TSH (0.300-4.500) uIu/ml Urine Color Urine Appearance (Clear) Urine pH (4.5-7.5) Ur Specific [place] (1.000-1.030) Urine Protein (Negative) Urine Glucose (UA) (Negative) Urine Ketones (Negative) Urine Blood (Negative) Urine Nitrite (Negative) Urine Bilirubin (Negative) Urine Urobilinogen (Negative) Ur Leukocyte Esterase (Negative) Digoxin (0.8-2.0) ng/ml Blood Type Antibody Screen Crossmatch Imaging Data Radiologist's Impression: Radiology results as stated below per my review and the radiologist's interpretation: HEAD CT NONCONTRAST Findings: The paranasal sinuses and mastoid air cells are clear. The calvarium and skull base are intact. There is no mass, hematoma, midline shift, acute infarct. White matter hypodensity is nonspecific but suggestive of microvascular ischemic change. The ventricles and sulci demonstrate mild age-related involutional changes. Impression: No significant change compared to the prior study. No acute intracranial abnormality. Electronically signed by: Riky Glynn M.D. 09/30/2018 3:[address] OF THE CERVICAL SPINE WITHOUT CONTRAST FINDINGS: Alignment of the cervical spine is anatomic. The craniocervical junction is intact. There is no acute fracture. There is moderate multilevel facet arthrosis and mild to moderate multilevel degenerative disc disease. D egenerative changes at the C1-C2 articulation are noted. There is no prevertebral edema. The thyroid gland is enlarged. This is unchanged since chest CT of August 23, 2018. IMPRESSION: No acute cervical spine fracture or subluxation. Electronically signed by: Vinod Forbes M.D. 09/30/2018 3:22 PM XR chest 1V portable FINDINGS: The cardiac and mediastinal contours remain stable. There are bilateral calcified pleural plaques. There is a small left pleural effusion with stable left basilar atelectasis/scarring.. There is no failure. There is no acute parenchymal consolidation. There is mild elevation of the left hemidiaphragm.[ IMPRESSION: 1. No active disease in the chest 2. Bilateral calcified pleural plaques 3. Stable small left pleural effusion with stable left basilar atelectasis/scarring Electronically signed by: Jordan Peña M.D. 09/30/2018 2:59 PM ECG Data Attestation: I personally reviewed and interpreted this ECG as follows: Indication: weakness Rate (beats per minute): 69 Rhythm: atrial fibrillation Findings: + RBBB; no ST depression and no ST elevation Comparison ECG Date: from (08/25/2018) Change: the following changes noted (Compared to prior, rate has decreased, otherwise no change.) Blood Pressure Blood Pressure Findings: Elevated blood pressure Blood Pressure Disposition: further management by hospitalist Head Trauma GCS Score: 15 MDM Narrative This patient comes in as described above. He was placed in room D4. The nurses asked me to see him as his blood sugar was 30 when I walk in the room he is well-appearing and denies any complaints. He does have history of diabetes and is on oral medications for this. He denies any recent change of medications or missed medications. He is been feeling very weak in general lately and has had a couple falls. He denies any significant trauma with exception of hitting his head. He has had no chest pain or shortness of breath. The nurse did give him some juice and we rechecked this and his blood sugar was still in the 30s. he was given an amp of D50 IV came up to over 100. His EKG shows chronic A. fib without acute ischemic changes and troponin is not elevated. CAT scan of his head is unremarkable. Hemoglobin came back low in the mid 7 range. He had no blood or melena stool this could also be making him feel weak. I think he is weak because been hypoglycemic as well. His abdomen is benign he has no focal neurologic deficits. Given his age and the hypoglycemia and anemia, I do think he needs to be admitted/observe for further inpatient treatment and evaluation of consult the [facility]ist for this. Patient and his family are in agreement the plan. Impression & Plan Weakness, Anemia, Hypoglycemia, A-fib, On Coumadin for atrial fibrillation Discharge Plan Visit Data *Final* Discharge Date/Time: 09/30/18 17:48 Chief Complaint: Neuro Symptoms/Deficit Stated Complaint: SENT BY DOC POSSIBLE STROKE LAST NIGHT,FALL ED Provider: Heron Maloney Discharge Problem: Weakness, Anemia, Hypoglycemia, A-fib, On Coumadin for atrial fibrillation Patient Disposition: Admitted As Inpatient Discharge Instructions Interventions: ED Discharge Assessment Last Done: 09/30/18 17:48 The scribe's documentation has been prepared under my direction and personally reviewed by me in its entirety. I confirm that the note above accurately reflects all work, treatment, procedures, and medical decision making performed by me.
[2018-09-30] MEDS ORDERED: FUROSEMIDE 40 MG/4 ML VIAL IV ONE (23:30)
[2018-10-01] MEDS ORDERED: PNEUMOCOCCAL ADMINISTRATION CHARGE ONE (00:45)
[2018-10-01] MEDS ORDERED: ACETAMINOPHEN 325 MG TAB PO SCH (06:00)
[2018-10-01 06:42] LABS: Estimated Average Glucose 137 mg/dl; Hemoglobin A1C 6.4 % (4.5-5.6)
[2018-10-01 07:00] LABS: Hematocrit (blood only) 28.4 % (42-52); Hemoglobin 9.2 g/dL (14.0-18.0); Mean Corpuscular Hgb Conc 32.4 g/dL (32-36); Mean Corpuscular Volume 90.2 fL (80-100); Mean Platelet Volume 9.5 fL (7.4-10.4); Platelet Count 269 K/uL (130-400); RDW Coefficient of Variation 16.5 % (11.5-14.5); RDW Standard Deviation 53.6 fL (36.4-46.3); Red Blood Count 3.15 M/uL (4.7-6.1); White Blood Count 10.21 K/uL (4.8-10.8)
[2018-10-01 07:17] LABS: Prothrombin Time 28.7 Seconds (9.0-12.0)
[2018-10-01 07:20] LABS: BUN Creatinine Ratio 25.6 (10-20); Calcium 8.8 mg/dl (8.5-10.1); Creatinine Clr Calc Pharmacy 34.8 ml/min; Est GFR (African American) 44.3; Est GFR (Non-African American) 38.2; Magnesium 2.3 mg/dl (1.8-2.4); Potassium 5.2 mmol/L (3.5-5.1)
[2018-10-01] MEDS ORDERED: PNEUMOCOCCAL POLYSACCHARIDES 25 MCG/0.5 ML VIAL/SYR IM ONE (08:00)
[2018-10-01] MEDS: INSULIN ASPART 100 UNITS/ML 3 ML PEN SC SCH ×4 (08:09→20:57)
[2018-10-01] MEDS: ASPIRIN 81 MG ECTAB PO SCH (08:39)
[2018-10-01] MEDS: METOPROLOL SUCC 25MG EXT REL TAB PO SCH (08:40)
[2018-10-01] MEDS: DIGOXIN 0.125 MG TAB PO SCH (08:40)
[2018-10-01] MEDS: SIMVASTATIN 20 MG TAB PO SCH (08:41)
--- NOTE | 2018-10-01 09:54 | Hospitalist Progress Note ---
Date of Service October 01, 2018 Assessment & Plan (1) Hypoglycemia: Some hypoglycemia persisting until the last evening, however, this is likely related to home glipizide use. Hypoglycemic protocol and insulin without carb coverage as needed. A1c is 6.4. The patient will most likely not go home on any anti-glycemic's at discharge. (2) Symptomatic anemia: Baseline H&H is difficult to determine as patient also receives care at the [facility]. However, he is significantly lower than discharge 1 month ago (10/ on 09/01 admitted with 7.3/23.1 on 09/30) iron studies reveal evidence of iron deficiency, however, anemia is likely multifactorial including anemia of chronic disease and frequent phlebotomy with recent hospitalization that included VATS procedure. INR is 3 today and coumadin has been held. In light of recent procedure and significant hemoglobin drop in 1 month, will scan chest abdomen pelvis with CT imaging to ensure no evidence of occult bleed. He has responded appropriately to 2 units of blood given overnight. We will continue to trend H&H and ensure stability and improved symptoms prior to discharge home. Also pending is reticulocyte count, peripheral smear and an H pylori stool antigen in the setting of functional dyspepsia every night. This is a reference test and will be followed up as outpatient with primary care doctor. (3) Weakness: PT/OT evaluation pending. Patient feels improved but has not gotten up to walk around to test this theory. (4) DEMPSEY (dyspnea on exertion): Thought related to symptomatic anemia, however, echocardiogram reveals some reduced right ventricular function. Will discuss case with cardiology. (5) CKD (chronic kidney disease), stage III: He is at baseline around 1.7. Continue to avoid nephrotoxic substances DC metformin as above. Renally dose medications as needed. (6) T2DM (type 2 diabetes mellitus): Repeat A1c this admission is 6.4. Hypoglycemia and plan as above. (7) Fall: No secondary injuries status post falls at home. PT/OT evaluations as per plan above. CT of the C-spine without contrast was negative for acute cervical spine fracture or subluxation. Head CT was not significant revealed no acute intracranial abnormality. (8) Atrial fibrillation: On metoprolol for rate control 12.5 mg p.o. daily. Coumadin has been held in setting of anemia. Of note Coumadin was recently decreased to 2.5 mg p[facility]o. [facility]. (9) DVT prophylaxis: INR are currently therapeutic secondary to recent warfarin use which will be held in the setting of anemia. SCDs Full code as discussed with patient on admission Disposition-cont telemetry Shea Amaro DO [facility] Hospitalist Subjective 88-year-old man admitted for symptomatic anemia and hypoglycemia. Some hypoglycemia persisted into yesterday afternoon blood sugars have been normoglycemic overnight. He reports no symptoms at this time. He continues to deny any significant bleeding or bruising. He has not tried to get up out of bed today so was not sure if he felt that much better this morning. We will continue to monitor this progress. Appropriate response to 2 units of blood overnight. Iron studies revealed some evidence of iron deficiency. Physical Exam Vital Signs (Past 24 Hours): Last Vital Signs Temp 37.1 C 10/01/18 07:00 Pulse 76 10/01/18 08:40 Resp 16 10/01/18 07:00 BP 158/62 H 10/01/18 07:00 Pulse Ox 97 10/01/18 07:00 CONSTITUTIONAL: WNWD, vitals as above, generally well-appearing EYES: normal conjuctivae, no scleral icterus ENT: MMM RESPIRATORY: clear to auscultation bilaterally, no crackles, rales or wheezes, normal respiratory effort CARDIOVASCULAR: regular rate and rhythm, S1 and 2 heard without murmurs, gallops or rubs, no JVD, no peripheral edema GASTROINTESTINAL: normal bowel sounds, soft, nontender, nondistended MUSCULOSKELETAL: No gross focal deficits. Some limitation of the right knee in flexion. SKIN: warm and dry NEUROLOGIC: No gross focal deficits PSYCHIATRIC: alert cooperative and oriented to person, place and time. Results & Data Laboratory Results Short CBC 09/30/18 10/01/18 Range/Units 14:35 06:36 WBC 12.86 H 10.21 (4.8-10.8) K/uL Hgb 7.3 L 9.2 L (14.0-18.0) g/dL Hct 23.1 L 28.4 L (42-52) % Plt Count 343 269 (130-400) K/uL BMP 09/30/18 10/01/18 14:35 06:36 Sodium 140 138 Potassium 4.9 5.2 H Chloride 113 H 110 H Carbon Dioxide 22 24 BUN 45 H 40 H Creatinine 1.77 H 1.58 H Glucose 31 L* 72 Calcium 8.3 L 8.8 Liver Function 09/30/18 Range/Units 14:35 Total Bilirubin 0.1 L (0.2-1) mg/dl AST 18 (15-37) U/L ALT 27 (12-78) U/L Alkaline Phosphatase 62 (45-117) U/L Albumin 2.4 L (3.4-5.0) gm/dl Urine 09/30/18 Range/Units 17:31 Urine Color Yellow Urine Appearance Clear (Clear) Urine pH 5.0 (4.5-7.5) Ur Specific [place] 1.017 (1.000-1.030) Urine Protein Negative (Negative) Urine Glucose (UA) Negative (Negative) Medications Administered Current Inpatient Medications Acetaminophen (Tylenol) 650 mg PO Q4H PRN PRN Reason: Pain or Fever Stop: 10/30/18 18:40 Aspirin (Ecotrin Ectab) 81 mg PO [facility] Stop: 10/31/18 08:59 Last Admin: 10/01/18 08:39 Dose: 81 mg Documented by: Dextrose (Dextrose 50%) 25 - 50 ml IV UD PRN; Protocol PRN Reason: Hypoglycemia Protocol Stop: 10/30/18 18:40 Last Admin: 09/30/18 21:32 Dose: 50 ml Documented by: Digoxin (Lanoxin) 0.125 mg PO QAM [facility] Stop: 10/31/18 08:59 Last Admin: 10/01/18 08:40 Dose: 0.125 mg Documented by: Docusate Sodium (Colace) 100 mg PO BID PRN PRN Reason: constipation Stop: 10/30/18 17:23 Glucagon (Glucagen) 1 mg SQ UD PRN; Protocol PRN Reason: Hypoglycemia Protocol Stop: 10/30/18 18:40 Glucose (Glucose 40%) 15 - 30 gm PO UD PRN; Protocol PRN Reason: Hypoglycemia Protocol Stop: 10/30/18 18:40 Glucose (Dex4 Glucose) 4 - 8 tabs PO UD PRN; Protocol PRN Reason: Hypoglycemia Protocol Stop: 10/30/18 18:40 Last Admin: 09/30/18 21:12 Dose: 8 tabs Documented by: Hydralazine HCl (Apresoline) 12.5 mg PO BID [facility] Stop: 10/30/18 20:59 Last Admin: 10/01/18 08:38 Dose: 12.5 mg Documented by: Sodium Chloride (Nss) 250 mls @ 15 mls/hr IV .[id number] PRN PRN Reason: For Transfusion Stop: 10/30/18 19:26 Insulin Aspart (Novolog Flexpen) 0 units SC ACHS [facility] Stop: 10/30/18 20:59 Last Admin: 10/01/18 08:09 Dose: Not Given Documented by: Metoprolol Succinate (Toprol Xl) 12.5 mg PO QAM [facility] Stop: 10/31/18 08:59 Last Admin: 10/01/18 08:40 Dose: 12.5 mg Documented by: Miscellaneous (Carbohydrates For Hypoglycemia) 15 - 30 gm PO UD PRN PRN Reason: Hypoglycemia Treatment Stop: 10/30/18 18:40 Last Admin: 09/30/18 20:52 Dose: 30 gm Documented by: Ondansetron HCl (Zofran) 4 mg IV Q6H PRN PRN Reason: Nausea Stop: 10/30/18 18:40 Polyethylene Glycol (Miralax Powder Packet) 17 gm PO DAILY PRN PRN Reason: Constipation Stop: 10/30/18 18:40 Simvastatin (Zocor) 20 mg PO QAM [facility] Stop: 10/31/18 08:59 Last Admin: 10/01/18 08:41 Dose: 20 mg Documented by: Tramadol HCl (Ultram) 50 mg PO Q6H PRN PRN Reason: Pain Stop: 10/30/18 17:23 (1) T2DM (type 2 diabetes mellitus) Chronic kidney disease stage: stage 3 (moderate) Diabetes mellitus complication detail: with chronic kidney disease Diabetes mellitus complication status: with kidney complications Diabetes mellitus meterman insulin use: without meterman use Qualified Code(s): E11.22 - Type 2 diabetes mellitus with diabetic chronic kidney disease; N18.3 - Chronic kidney disease, stage 3 (moderate)
[2018-10-01 13:08] LABS: Reticulocyte % 2.7 % (0.5-2.0); Reticulocytes # 0.09 10^6/uL (0.02-0.10)
--- NOTE | 2018-10-01 17:37 | CT Scan Report ---
CT chest wo con, CT abd pelvis wo con CT DOSE: 789.88 mGy.cm CLINICAL HISTORY: 88 years-old Male with symptomatic anemia, high INR, recent VATS, bleed?. Acute an emia with recent pulmonary surgery. Acute atypical chest pain with acute generalized abdominal pain TECHNIQUE: Multiaxial CT images of the chest, abdomen and pelvis were performed without contrast. A dose lowering technique was utilized adhering to the principles of ALARA. COMPARISON: Chest radiograph 09/30/2018, chest CT 08/23/2018, MRI lumbar spine 07/24/2014, renal ultraso und 07/16/2010. FINDINGS: CT CHEST: Enlarged multinodular goiter. Evaluation for adenopathy is limited without the use of IV contrast. Mi ldly prominent and enlarged subcarinal and paratracheal lymph nodes are seen measuring up to 11 mm in short axis with the subcarinal adenopathy slightly progressed from comparison. Heart is mildly enlar ged without pericardial effusion. Coronary arterial, mitral and aortic annular calcifications are not ed. Mild dilation about the ascending thoracic aorta redemonstrated, 4.3 x 4.2 cm with extensive asso ciated ossified plaque. Tortuosity of the descending thoracic aorta. The main pulmonary artery is mil dly dilated measuring 3.8 cm which may reflect underlying pulmonary arterial hypertension the appropr iate clinical setting. Small left pleural effusion has decreased in size from comparison chest CT. There is decreased comple xity of the pleural effusion from comparison with only minimal loculation present. Pleural-based nodu le of the left lower lobe measures 1.1 x 1.3 cm on image 218 series 6. Probably linear consolidative with groundglass opacities are noted about the left lung base with left basilar bronchial wall thicke lencho. There is 70% luminal narrowing noted about the proximal thoracic trachea, image 59 series 6. Sm all filling defect noted within the bronchus intermedius on image 156 series 6 which may reflect trac heobronchial secretions. Bilateral pleural calcifications. There is no pneumothorax. Mild subpleural bleb formation of the lung apices. Respiratory motion mildly limits the dilation of the lung parenchy ma. The right lung is generally clear. Soft tissues are unremarkable. Degenerative changes of the spine and shoulders. No suspicious bone le sions identified. CT ABDOMEN/PELVIS: No pneumatosis or pneumoperitoneum. The study is moderately motion degraded. Evaluation of the solid abdominal organs is limited without the use of IV contrast. Within the limitations of the study, the liver, spleen, gallbladder, and adrenal glands are unremarkable. Moderate generalized pancreatic atro phy. Mild to moderate nonspecific bilateral perinephric stranding. 5.7 cm cyst of the superior pole r ight kidney. Indeterminate 11 mm intermediate attenuating lesion noted about the lateral interpolar l eft kidney. No renal or ureteral calculi or obstructive uropathy identified. Mild prostamegaly. Mild wall thickening of the urinary bladder. Extensive calcification of the abdominal aorta and proximal b ranch vessels without aneurysm. Mild fusiform dilation about the bilateral common iliac arteries. No adenopathy. Small sliding-type hiatal hernia. There is no small bowel traction. Scattered small bowel air-fluid l evels are likely neurologic. Minimal colonic diverticulosis without acute diverticulitis. Mild to mod erate formed stool throughout the colon. Terminal ileum is unremarkable. Nonvisualization of the appe ndix. There is mild asymmetric prominence about the right iliopsoas musculature compared to the left (for example image 308 of series 7. No pneumoperitoneum. Soft tissues appear to be within normal limi ts. Degenerative changes noted about the spine, pelvis and hips. Chronic anterior endplate compressio n deformity at L4 with endplate irregularity at the L3-L4 level. Grade 1 anterolisthesis L3 on L4 is also unchanged. IMPRESSION: 1. Small right pleural effusion has decreased in size and complexity from comparison study dated 08/23. 2. Left basilar opacities are suggestive of atelectasis/scarring with pneumonitis considered less lik dain. 3. Pleural-based nodule of the left lower lobe measures 1.1 x 1.3 cm. This was not definitively seen on comparison chest CT. Follow-up recommended. 4. Mild asymmetric prominence of the right iliopsoas musculature compared to the left. A small intram uscular hematoma is not excluded. Correlate clinically. No large retroperitoneal hematoma identified. 5. 70% luminal narrowing about the proximal thoracic trachea compatible with tracheal stenosis. 6. Motion degraded exam without bowel obstruction or focal bowel wall thickening. 7. No bowel obstruction or focal bowel wall thickening. 8. Prostamegaly with mild urinary bladder wall thickening. Correlate with urinalysis. 9. Additional findings as above. Electronically signed by: Rohan Jeffrey M.D. 10/01/2018 5:35 PM
[2018-10-02 07:18] LABS: Hematocrit (blood only) 30.1 % (42-52); Hemoglobin 9.8 g/dL (14.0-18.0); Mean Corpuscular Hgb Conc 32.6 g/dL (32-36); Mean Corpuscular Volume 90.9 fL (80-100); Mean Platelet Volume 9.6 fL (7.4-10.4); Platelet Count 293 K/uL (130-400); RDW Coefficient of Variation 16.3 % (11.5-14.5); RDW Standard Deviation 54.1 fL (36.4-46.3); Red Blood Count 3.31 M/uL (4.7-6.1)
[2018-10-02 07:34] LABS: INR 2.2 (0.9-1.1); Prothrombin Time 21.4 Seconds (9.0-12.0)
[2018-10-02 07:44] LABS: BUN Creatinine Ratio 24.4 (10-20); Creatinine Clr Calc Pharmacy 33.7 ml/min; Est GFR (African American) 42.7; Est GFR (Non-African American) 36.8; Potassium 5.7 mmol/L (3.5-5.1)
[2018-10-02] MEDS: INSULIN ASPART 100 UNITS/ML 3 ML PEN SC SCH ×4 (07:49→20:37)
[2018-10-02] MEDS: METOPROLOL SUCC 25MG EXT REL TAB PO SCH (08:39)
[2018-10-02] MEDS: DIGOXIN 0.125 MG TAB PO SCH (08:39)
[2018-10-02] MEDS: SIMVASTATIN 20 MG TAB PO SCH (08:40)
[2018-10-02] MEDS: ASPIRIN 81 MG ECTAB PO SCH (08:40)
--- NOTE | 2018-10-02 09:33 | Gastrointestinal Consultation ---
Date of Consultation October 02, 2018 Assessment & Plan (1) Anemia: No evidence of overt ongoing GI bleeding, no GI symptoms, there is small HH on CT scan. Discussed with patient further GI work up with endoscopy and her refused any procedure or work up. Recommend: Empiric course of PO PPI for 4 weeks. Recall GI if patient agrees for endoscopy or work up. (2) Positive occult stool blood test: History of Present Illness Attending Physician: Shea Amaro DO 88 years old male patient with medical comorbids of AFIB on Coumadin, multiple medical comorbids as below, admitted with generalized weakness and hypoglycemia, found with drop in H/H on a baseline of chronic anemia, FOBT positive but the stool is brown. Patient denies any GI symptoms, no nausea or vomiting, no epigastric pain, no diarrhea, has constipation. No prior endoscopy. Allergies Allergy/AdvReac Type Severity Reaction Status Date / Time No Known Allergies Allergy Mild Verified 09/30/18 15:08 Home Medications Home Medications Medication Instructions Recorded Confirmed Type acetaminophen [Tylenol Extra 1,000 mg PO DIRECTED PRN 08/23/18 09/30/18 History Strength] aspirin 81 mg PO QAM 08/23/18 09/30/18 History digoxin 0.125 mg PO QAM 08/23/18 09/30/18 History glipizide 10 mg PO BID 08/23/18 09/30/18 History hydralazine 12.5 mg PO BID 08/23/18 09/30/18 History metformin 850 mg PO BID 08/23/18 09/30/18 History metoprolol succinate 12.5 mg PO QAM 08/23/18 09/30/18 History simvastatin 20 mg PO QAM 08/23/18 09/30/18 History tramadol 50 mg PO Q6H PRN 08/23/18 09/30/18 History warfarin 2.5 mg PO DAILY 08/23/18 09/30/18 History Patient History Medical History Encounter for pre-operative examination Anemia DVT prophylaxis DEMPSEY (dyspnea on exertion) Pleural effusion, left T2DM (type 2 diabetes mellitus) Persistent atrial fibrillation HTN (hypertension) HLD (hyperlipidemia) CKD (chronic kidney disease) stage 3, GFR 30-59 ml/min Hx of polymyalgia rheumatica 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 Rechecking INR AM of 08/25/2018. If still elevated plan on administering FFP. Bifascicular block Surgical History History of total right knee replacement (TKR) History of lumbar surgery 2012. [facility] (Dr. Blanc). MAC 4, DLx1. 8.0ETT. History of cataract extraction Family History Other Family history non-contributory Social History Communication Ability: Effective Beliefs That Will Affect Care: None marital status: Single Current Living Situation: Alone Current Living Situation Comment: Girlfriend (Edna) stays frequently Other Information That Helps Us Care for You: No Feels Safe at Home: Yes Safety Concerns: Feels Safe At This Time Smoking Status: Former smoker Hx Alcohol Use: No Hx Substance Use: No Review of Systems Constitutional: no fever, no chills, no fatigue and no weight loss Eyes: no eye pain and no worsening vision Ear, Nose, Mouth, Throat: no tinnitus, no dizziness, no nasal discharge and no epistaxis Respiratory: no cough, no dyspnea, no dyspnea on exertion and no wheezing Cardiovascular: no chest pain, no orthopnea, no palpitations and no edema Gastrointestinal: as per Subjective / HPI Musculoskeletal: no stiffness and no myalgia Neurologic: no localized weakness, no paralysis, no tremor(s) and no headache(s) Endocrine: no polydipsia and no polyuria Hematologic / Lymphatic: no easy bleeding and no night sweats Physical Exam Vital Signs (Past 24 Hours): Last Vital Signs Temp 36.7 C 10/02/18 07:20 Pulse 72 10/02/18 08:39 Resp 18 10/02/18 07:20 BP 171/66 H 10/02/18 07:20 Pulse Ox 98 10/02/18 07:20 Constitutional: + well hydrated, cooperative and comfortable Eyes: PERRL, conjunctivae normal, anicteric sclerae ENMT: external ear and nose normal, oropharynx normal Neck: normal visual inspection and trachea midline Respiratory: normal respiratory effort, lungs clear to auscultation Auscultation: no wheezes Cardiovascular: RRR, no murmur, no edema Gastrointestinal (Abdomen): normal bowel sounds, soft, nontender, no hepatosplenomegaly Skin: no rashes, warm and dry Neurologic: awake; no focal motor deficits Motor/Sensory: no tremor Results & Data Laboratory Results Laboratory Results - last 24 hr 10/01/18 10/01/18 10/01/18 11:22 12:51 12:51 WBC RBC Hgb Hct MCV MCH MCHC RDW Std Deviation RDW Coeff of Leena Plt Count MPV Reticulocyte % (Auto) 2.7 H Reticulocyte # 0.09 PT INR Sodium Potassium Chloride Carbon Dioxide Anion Gap BUN Creatinine Est Cr Clr Drug Dosing Est GFR ( Amer) Est GFR (Non-Af Amer) BUN/Creatinine Ratio Glucose POC Glucose 124 H Calcium Lactate Dehydrogenase 179 Stool Occult Bld Scrn 10/01/18 10/01/18 10/01/18 16:03 19:13 20:19 WBC RBC Hgb Hct MCV MCH MCHC RDW Std Deviation RDW Coeff of Leena Plt Count MPV Reticulocyte % (Auto) Reticulocyte # PT INR Sodium Potassium Chloride Carbon Dioxide Anion Gap BUN Creatinine Est Cr Clr Drug Dosing Est GFR ( Amer) Est GFR (Non-Af Amer) BUN/Creatinine Ratio Glucose POC Glucose 169 H 252 H Calcium Lactate Dehydrogenase Stool Occult Bld Scrn Positive H 10/02/18 10/02/18 10/02/18 06:09 06:09 06:09 WBC 11.90 H RBC 3.31 L Hgb 9.8 L Hct 30.1 L MCV 90.9 MCH 29.6 MCHC 32.6 RDW Std Deviation 54.1 H RDW Coeff of Leena 16.3 H Plt Count 293 MPV 9.6 Reticulocyte % (Auto) Reticulocyte # PT 21.4 H INR 2.2 H Sodium 140 Potassium 5.7 H Chloride 111 H Carbon Dioxide 23 Anion Gap 6.0 BUN 40 H Creatinine 1.63 H Est Cr Clr Drug Dosing 33.7 Est GFR ( Amer) 42.7 Est GFR (Non-Af Amer) 36.8 BUN/Creatinine Ratio 24.4 H Glucose 111 H POC Glucose Calcium 9.0 Lactate Dehydrogenase Stool Occult Bld Scrn 10/02/18 07:43 WBC RBC Hgb Hct MCV MCH MCHC RDW Std Deviation RDW Coeff of Leena Plt Count MPV Reticulocyte % (Auto) Reticulocyte # PT INR Sodium Potassium Chloride Carbon Dioxide Anion Gap BUN Creatinine Est Cr Clr Drug Dosing Est GFR ( Amer) Est GFR (Non-Af Amer) BUN/Creatinine Ratio Glucose POC Glucose 113 H Calcium Lactate Dehydrogenase Stool Occult Bld Scrn (1) Anemia Anemia type: unspecified type Qualified Code(s): D64.9 - Anemia, unspecified
[2018-10-02 11:20] LABS: BUN Creatinine Ratio 21.9 (10-20); Calcium 9.2 mg/dl (8.5-10.1); Creatinine Clr Calc Pharmacy 30.5 ml/min; Est GFR (African American) 37.8; Est GFR (Non-African American) 32.6
--- NOTE | 2018-10-02 16:40 | Hospitalist Progress Note ---
Date of Service October 02, 2018 Assessment & Plan (1) Hypoglycemia: Likely related to home glipizide use. Metformin absolutely contraindicated secondary to his advanced renal disease. Will consider low-dose glipizide going home but not current dose of 10 mg p.o. twice daily. He is starting to have elevated blood sugars above 200 today. So will start some conservative carbohydrate coverage with sliding scale and continue to monitor blood sugar closely. A1c this admission is 6.4. (2) Symptomatic anemia: Clinically improved status post blood transfusion. Baseline H&H is difficult to determine as patient also receives care at the [facility]. However, he is significantly lower than discharge 1 month ago (05/04 on 09/01 admitted with 7.3/23.1 on 09/30). Iron studies reveal evidence of iron deficiency, however, anemia is likely multifactorial including anemia of chronic disease and frequent phlebotomy with recent hospitalization that included VATS procedure. INR has been supratherapeutic since discharge and Coumadin has been held. Since blood transfusion this admission, H&H has been stable. CT chest some and pelvis was performed looking for occult bleed status post VATS procedure last month with a supratherapeutic INR. There was evidence of an intramuscular hematoma present in the psoas muscle. Stool was positive for fecal occult blood however, patient declines any endoscopy workup. There is some evidence of iron deficiency and iron supplementation has been started. Anemia is likely multifactorial in the setting of chronic disease. Also, in the setting of recent nausea and pain in the evenings would like to rule out H. pylori. Stool antigen has been ordered for this. This will need to be followed up by primary care doctor as outpatient. (3) Weakness: Weakness is improved after improvement in anemia and blood glucose. Per PT/OT evaluations, patient will require short-term rehab. Appreciate case management assistance in facilitating this. (4) DEMPSEY (dyspnea on exertion): This is improved after blood transfusion. Repeat echocardiogram is unchanged from prior. Did discuss this case peripherally with cardiology and there are no new acute concerns with the recent findings. PE was considered initially with some reported chest discomfort "when I cough" however, PE less likely in the setting of therapeutic to supratherapeutic INR recently. Feel this was related to his anemia, and is not improved. (5) CKD (chronic kidney disease), stage III: He is at baseline around 1.7. Continue to avoid nephrotoxic substances DC metformin as above. Renally dose medications as needed. (6) T2DM (type 2 diabetes mellitus): Repeat A1c this admission is 6.4. Hypoglycemia and plan as above. (7) Fall: No secondary injuries status post falls at home. PT/OT evaluations as per plan above. CT of the C-spine without contrast was negative for acute cervical spine fracture or subluxation. Head CT was not significant revealed no acute intracranial abnormality. Plan for rehab at discharge. (8) Atrial fibrillation: On metoprolol for rate control 12.5 mg p.o. daily. Coumadin was recently [facility] 2[facility]5 mg [facility]. This is been held in the setting of anemia and should probably be held additional week in the setting of hematoma that was found on him will defer to outpatient follow-up provider to restart this. Patient understands he does incur a small stroke risk while still in atrial fibrillation off anticoagulation. (9) DVT prophylaxis: INR are currently therapeutic secondary to recent warfarin use which will be held in the setting of anemia. SCDs Full code as discussed with patient on admission Disposition-cont telemetry Shea Amaro DO [facility] Hospitalist Subjective Patient states he feels fine today. He is asymptomatic aside from a report of chest discomfort on the lower right rib cage associated with coughing. When a sked how frequently he coughs he says "once in a while" when asked how often that is the says "sometimes in the morning". Nursing denies hearing him cough frequently. He has not coughed during any examination this hospitalization with me. He is a poor historian. He does report his shortness of breath is improved, however, he is not pushing himself to ambulate much. He denies any feeling of lightheadedness or dizziness that might precipitate a fall as he had felt at home. Physical Exam Vital Signs (Past 24 Hours): Last Vital Signs Temp 36.6 C 10/02/18 15:09 Pulse 71 10/02/18 15:09 Resp 22 10/02/18 15:09 BP 153/73 H 10/02/18 15:09 Pulse Ox 99 10/02/18 15:09 CONSTITUTIONAL: WNWD, vitals as above, generally well-appearing EYES: normal conjuctivae, no scleral icterus ENT: MMM RESPIRATORY: clear to auscultation bilaterally, no crackles, rales or wheezes, normal respiratory effort CARDIOVASCULAR: regular rate and rhythm, S1 and 2 heard without murmurs, gallops or rubs, no JVD, no peripheral edema GASTROINTESTINAL: normal bowel sounds, soft, nontender, nondistended MUSCULOSKELETAL: No gross focal deficits. Some limitation of the right knee in flexion. SKIN: warm and dry NEUROLOGIC: No gross focal deficits PSYCHIATRIC: alert cooperative and oriented to person, place and time. Results & Data Laboratory Results Short CBC 10/02/18 Range/Units 06:09 WBC 11.90 H (4.8-10.8) K/uL Hgb 9.8 L (14.0-18.0) g/dL Hct 30.1 L (42-52) % Plt Count 293 (130-400) K/uL BMP 10/02/18 10/02/18 06:09 10:54 Sodium 140 136 Potassium 5.7 H 5.0 Chloride 111 H 106 Carbon Dioxide 23 24 BUN 40 H 40 H Creatinine 1.63 H 1.80 H Glucose 111 H 259 H Calcium 9.0 9.2 Cardiac Enzymes 10/02/18 Range/Units 10:54 Total Creatine Kinase 89 (39-308) U/L Medications Administered Current Inpatient Medications Acetaminophen (Tylenol) 650 mg PO Q4H PRN PRN Reason: Pain or Fever Stop: 10/30/18 18:40 Aspirin (Ecotrin Ectab) 81 mg PO QAM [facility] Stop: 10/31/18 08:59 Last Admin: 10/02/18 08:40 Dose: 81 mg Documented by: Dextrose (Dextrose 50%) 25 - 50 ml IV UD PRN; Protocol PRN Reason: Hypoglycemia Protocol Stop: 10/30/18 18:40 Last Admin: 09/30/18 21:32 Dose: 50 ml Documented by: Digoxin (Lanoxin) 0.125 mg PO MoWeFr@0900 [facility] Stop: 11/02/18 08:59 Docusate Sodium (Colace) 100 mg PO BID PRN PRN Reason: constipation Stop: 10/30/18 17:23 Glucagon (Glucagen) 1 mg SQ UD PRN; Protocol PRN Reason: Hypoglycemia Protocol Stop: 10/30/18 18:40 Glucose (Glucose 40%) 15 - 30 gm PO UD PRN; Protocol PRN Reason: Hypoglycemia Protocol Stop: 10/30/18 18:40 Glucose (Dex4 Glucose) 4 - 8 tabs PO UD PRN; Protocol PRN Reason: Hypoglycemia Protocol Stop: 10/30/18 18:40 Last Admin: 09/30/18 21:12 Dose: 8 tabs Documented by: Hydralazine HCl (Apresoline) 12.5 mg PO BID [facility] Stop: 10/30/18 20:59 Last Admin: 10/02/18 11:39 Dose: 12.5 mg Documented by: Sodium Chloride (Nss) 250 mls @ 15 mls/hr IV .[id number] PRN PRN Reason: For Transfusion Stop: 10/30/18 19:26 Insulin Aspart (Novolog Flexpen) 0 units SC ACHS [facility] Stop: 10/30/18 20:59 Last Admin: 10/02/18 12:01 Dose: 1 units Documented by: Metoprolol Succinate (Toprol Xl) 12.5 mg PO QAM [facility] Stop: 10/31/18 08:59 Last Admin: 10/02/18 08:39 Dose: 12.5 mg Documented by: Miscellaneous (Carbohydrates For Hypoglycemia) 15 - 30 gm PO UD PRN PRN Reason: Hypoglycemia Treatment Stop: 10/30/18 18:40 Last Admin: 09/30/18 20:52 Dose: 30 gm Documented by: Ondansetron HCl (Zofran) 4 mg IV Q6H PRN PRN Reason: Nausea Stop: 10/30/18 18:40 Polyethylene Glycol (Miralax Powder Packet) 17 gm PO DAILY PRN PRN Reason: Constipation Stop: 10/30/18 18:40 Simvastatin (Zocor) 20 mg PO QAM [facility] Stop: 10/31/18 08:59 Last Admin: 10/02/18 08:40 Dose: 20 mg Documented by: Tramadol HCl (Ultram) 50 mg PO Q6H PRN PRN Reason: Pain Stop: 10/30/18 17:23 (1) T2DM (type 2 diabetes mellitus) Chronic kidney disease stage: stage 3 (moderate) Diabetes mellitus complication detail: with chronic kidney disease Diabetes mellitus complication status: with kidney complications Diabetes mellitus custodial insulin use: without custodial use Qualified Code(s): E11.22 - Type 2 diabetes mellitus with diabetic chronic kidney disease; N18.3 - Chronic kidney disease, stage 3 (moderate)
[2018-10-03 05:58] LABS: Hematocrit (blood only) 28.6 % (42-52); Hemoglobin 9.2 g/dL (14.0-18.0); Mean Corpuscular Hgb Conc 32.2 g/dL (32-36); Mean Corpuscular Volume 90.5 fL (80-100); Mean Platelet Volume 9.8 fL (7.4-10.4); Platelet Count 275 K/uL (130-400); RDW Standard Deviation 52.5 fL (36.4-46.3); Red Blood Count 3.16 M/uL (4.7-6.1); White Blood Count 10.76 K/uL (4.8-10.8)
[2018-10-03 06:12] LABS: INR 1.8 (0.9-1.1); Prothrombin Time 17.8 Seconds (9.0-12.0)
[2018-10-03 06:23] LABS: Calcium 8.6 mg/dl (8.5-10.1); Creatinine Clr Calc Pharmacy 31.4 ml/min; Est GFR (African American) 39.1; Est GFR (Non-African American) 33.8; Potassium 5.4 mmol/L (3.5-5.1)
[2018-10-03] MEDS: ASPIRIN 81 MG ECTAB PO SCH (07:51)
[2018-10-03] MEDS: METOPROLOL SUCC 25MG EXT REL TAB PO SCH (07:52)
[2018-10-03] MEDS: SIMVASTATIN 20 MG TAB PO SCH (07:52)
[2018-10-03] MEDS: INSULIN ASPART 100 UNITS/ML 3 ML PEN SC SCH ×4 (08:40→20:30)
[2018-10-03] MEDS ORDERED: DIGOXIN 0.125 MG TAB PO SCH (09:00)
--- NOTE | 2018-10-03 18:36 | Hospitalist Progress Note ---
Date of Service October 03, 2018 Assessment & Plan (1) Hypoglycemia: Likely related to home glipizide use. Metformin absolutely contraindicated secondary to his advanced renal disease. Will consider low-dose glipizide going home but not current dose of 10 mg p.o. twice daily. He is starting to have elevated blood sugars above 200 today. Continue carbohydrate coverage with sliding scale and continue to monitor blood sugar closely. A1c this admission is 6.4. (2) Symptomatic anemia: Clinically improved status post blood transfusion. Baseline H&H is difficult to determine as patient also receives care at the [facility]. However, he is significantly lower than discharge 1 month ago (05/04 on 09/01 admitted with 7.3/23.1 on 09/30). Iron studies reveal evidence of iron deficiency, however, anemia is likely multifactorial including anemia of chronic disease and frequent phlebotomy with recent hospitalization that included VATS procedure. INR has been supratherapeutic since discharge and Coumadin has been held. Since blood transfusion this admission, H&H has been stable. CT chest some and pelvis was performed looking for occult bleed status post VATS procedure last month with a supratherapeutic INR. There was evidence of an intramuscular hematoma present in the psoas muscle. This may have been during a fall at home or when he bumped into something as he reported doing some furniture walking. Stool was positive for fecal occult blood however, patient declines any endoscopy workup. There is some evidence of iron deficiency and iron supplementation has been started. Anemia is likely multifactorial in the setting of chronic disease. Also, in the setting of recent nausea and pain in the evenings would like to rule out H. pylori. Stool antigen has been ordered for this. This will need to be followed up by primary care doctor as outpatient. (3) Weakness: Weakness is improved after improvement in anemia and blood glucose. Per PT/OT evaluations, patient will require short-term rehab. Pt currently thinking about it. (4) DEMPSEY (dyspnea on exertion): This is improved after blood transfusion. Repeat echocardiogram is unchanged from prior. Did discuss this case peripherally with cardiology and there are no new acute concerns with the recent findings. (5) CKD (chronic kidney disease), stage III: He is at baseline around 1.7. Continue to avoid nephrotoxic substances. DC metformin as above. Renally dose medications as needed. (6) T2DM (type 2 diabetes mellitus): Repeat A1c this admission is 6.4. Hypoglycemia and plan as above. (7) Fall: Has had some tenderness in his lower ribs on the right side, however, no TTP and no evidence of fracture on CT chest. The patient is unsure how this occurred but has had pain since coming in to the hospital. Patient's friend states that [employer] MEMBER he was "out of it" and wouldn't remember. He is improved with a warm compress to the area. PT/OT evaluations as per plan above. CT of the C- spine without contrast was negative for acute cervical spine fracture or dennis bluxation. Head CT was not significant revealed no acute intracranial abnormality. Plan for rehab at discharge. (8) Atrial fibrillation: On metoprolol for rate control 12.5 mg p.o. daily. Coumadin was recently decreased to 2.5 mg p[facility]. [facility]. This is been held in the setting of anemia and should probably be held additional week in the setting of hematoma that was found on him will defer to outpatient follow-up provider to restart this. Cont ASA 81 daily. Patient understands he does incur a small stroke risk while still in atrial fibrillation off anticoagulation. (9) DVT prophylaxis: SCDs Full code as discussed with patient on admission Disposition-cont telemetry Shea Amaro DO [facility] Hospitalist Subjective ROS is negative. Pt has no complaints. Reports that he is walking around without much issue. Doesn't feel faint or prone to falls. Questioning rehab and prefers to go home. Physical Exam Vital Signs (Past 24 Hours): Last Vital Signs Temp 36.5 C 10/03/18 15:09 Pulse 97 H 10/03/18 15:09 Resp 22 10/03/18 15:09 BP 175/82 H 10/03/18 15:09 Pulse Ox 100 10/03/18 15:58 CONSTITUTIONAL: WNWD, vitals as above, generally well-appearing EYES: normal conjuctivae, no scleral icterus ENT: MMM RESPIRATORY: clear to auscultation bilaterally, no crackles, rales or wheezes, normal respiratory effort CARDIOVASCULAR: regular rate and rhythm, S1 and 2 heard without murmurs, gallops or rubs, no JVD, no peripheral edema GASTROINTESTINAL: normal bowel sounds, soft, nontender, nondistended MUSCULOSKELETAL: No gross focal deficits. Some limitation of the right knee in flexion. SKIN: warm and dry, sacral decub (not previously documented by me but present on arrival per nursing and wound care) NEUROLOGIC: No gross focal deficits PSYCHIATRIC: alert cooperative and oriented to person, place and time. Results & Data Laboratory Results Short CBC 10/03/18 Range/Units 05:22 WBC 10.76 (4.8-10.8) K/uL Hgb 9.2 L (14.0-18.0) g/dL Hct 28.6 L (42-52) % Plt Count 275 (130-400) K/uL BMP 10/03/18 05:22 Sodium 139 Potassium 5.4 H Chloride 109 H Carbon Dioxide 23 BUN 46 H Creatinine 1.75 H Glucose 98 Calcium 8.6 Medications Administered Current Inpatient Medications Acetaminophen (Tylenol) 650 mg PO Q4H PRN PRN Reason: Pain or Fever Stop: 10/30/18 18:40 Last Admin: 10/02/18 23:17 Dose: 650 mg Documented by: Aspirin (Ecotrin Ectab) 81 mg PO QAM [facility] Stop: 10/31/18 08:59 Last Admin: 10/03/18 07:51 Dose: 81 mg Documented by: Dextrose (Dextrose 50%) 25 - 50 ml IV UD PRN; Protocol PRN Reason: Hypoglycemia Protocol Stop: 10/30/18 18:40 Last Admin: 09/30/18 21:32 Dose: 50 ml Documented by: Digoxin (Lanoxin) 0.125 mg PO MoWeFr@0900 [facility] Stop: 11/02/18 08:59 Last Admin: 10/03/18 07:50 Dose: 0.125 mg Documented by: Docusate Sodium (Colace) 100 mg PO BID PRN PRN Reason: constipation Stop: 10/30/18 17:23 Last Admin: 10/03/18 16:28 Dose: 100 mg Documented by: Glucagon (Glucagen) 1 mg SQ UD PRN; Protocol PRN Reason: Hypoglycemia Protocol Stop: 10/30/18 18:40 Glucose (Glucose 40%) 15 - 30 gm PO UD PRN; Protocol PRN Reason: Hypoglycemia Protocol Stop: 10/30/18 18:40 Glucose (Dex4 Glucose) 4 - 8 tabs PO UD PRN; Protocol PRN Reason: Hypoglycemia Protocol Stop: 10/30/18 18:40 Last Admin: 09/30/18 21:12 Dose: 8 tabs Documented by: Hydralazine HCl (Apresoline) 12.5 mg PO BID [facility]CLUD[facility] Stop: 10/30/18 20:59 Last Admin: 10/03/18 07:51 Dose: 12.5 mg Documented by: Sodium Chloride (Nss) 250 mls @ 15 mls/hr IV .[id number] PRN PRN Reason: For Transfusion Stop: 10/30/18 19:26 Insulin Aspart (Novolog Flexpen) 0 units SC ACHS [facility] Stop: 10/30/18 20:59 Last Admin: 10/03/18 17:49 Dose: 6 units Documented by: Metoprolol Succinate (Toprol Xl) 12.5 mg PO QAM [facility] Stop: 10/31/18 08:59 Last Admin: 10/03/18 07:52 Dose: 12.5 mg Documented by: Miscellaneous (Carbohydrates For Hypoglycemia) 15 - 30 gm PO UD PRN PRN Reason: Hypoglycemia Treatment Stop: 10/30/18 18:40 Last Admin: 09/30/18 20:52 Dose: 30 gm Documented by: Ondansetron HCl (Zofran) 4 mg IV Q6H PRN PRN Reason: Nausea Stop: 10/30/18 18:40 Polyethylene Glycol (Miralax Powder Packet) 17 gm PO DAILY PRN PRN Reason: Constipation Stop: 10/30/18 18:40 Simvastatin (Zocor) 20 mg PO QAM [facility] Stop: 10/31/18 08:59 Last Admin: 10/03/18 07:52 Dose: 20 mg Documented by: Tramadol HCl (Ultram) 50 mg PO Q6H PRN PRN Reason: Pain Stop: 10/30/18 17:23 Last Admin: 10/03/18 07:49 Dose: 50 mg Documented by: (1) T2DM (type 2 diabetes mellitus) Diabetes mellitus half-way insulin use: without half-way use Diabetes mellitus complication status: with kidney complications Diabetes mellitus complication detail: with chronic kidney disease Chronic kidney disease stage: stage 3 (moderate) Qualified Code(s): E11.22 - Type 2 diabetes mellitus with diabetic chronic kidney disease; N18.3 - Chronic kidney disease, stage 3 (moderate)
[2018-10-04 06:10] LABS: BUN Creatinine Ratio 29.2 (10-20); Calcium 8.6 mg/dl (8.5-10.1); Creatinine Clr Calc Pharmacy 32.3 ml/min; Est GFR (African American) 40.5; Potassium 5.1 mmol/L (3.5-5.1)
[2018-10-04] MEDS ORDERED: FERROUS SULFATE 325 MG TAB PO SCH (08:00)
[2018-10-04] MEDS: METOPROLOL SUCC 25MG EXT REL TAB PO SCH (08:03)
[2018-10-04] MEDS: SIMVASTATIN 20 MG TAB PO SCH (08:03)
[2018-10-04] MEDS: ASPIRIN 81 MG ECTAB PO SCH (08:03)
[2018-10-04] MEDS: INSULIN ASPART 100 UNITS/ML 3 ML PEN SC SCH ×2 (09:07→12:48)
--- NOTE | 2018-10-04 14:16 | Discharge Summary ---
Date of Service October 04, 2018 Admission HPI Per Admitting Provider 88-year-old man who was recently admitted for a thoracoscopy last month presents today with significant weakness and some dizziness. He reports feeling poorly for the past week reporting nausea and abdominal discomfort in the evenings. The abdominal pain is central nonradiating and described as a cramping. 1 week ago he reported some vomiting that was normal without blood or other concern. This did not persist but abdominal pain was associated with nausea each night. He denies any changes in his bowels. He reports some blurry vision that began 2 days ago that is new for him. He reports 2 falls with the first attempt last night where he tried to go to the bathroom and slid down lightly to the floor. This was witnessed by his friend who concurred there was no loss of consciousness and he did not hit anything hard on his body. His son came over and had to pick him up off the floor and put him in his recliner to sleep in overnight. This morning around 6 AM when he went to get out of his recliner lynda ir he again had to slide down on the floor and could not get up. His son came over and this prompted the ER visit today. The patient uses a walker at baseline but is rather independent, reportedly using a walker only intermittent he denies any abdominal pain at this time and abdomen is soft and nontender to palpation. He denies any nausea or vomiting. Lab work revealed hypoglycemia on arrival with a blood sugar of 31. D50 was given which increase the sugar to 105. The patient reports eating breakfast this morning including galeana, eggs and some other kind of drink. He reports eating well over the past week without issue. He denies any weight changes. He denies any urinary symptoms, strokelike symptoms, chest pain. He does report some shortness of breath with exertion that is new for him over the past 2 weeks. He denies any cough, fevers, chills or other issues. He takes metformin 850 mg twice daily at home for diabetes as well as glipizide 10 mg twice daily. Other notable labs include H/H 7.3/23, down 3 grams since previous discharge 4 weeks prior. Admission Exam Per Admitting Provider Temp 37 C 09/30/18 13:58 Pulse 78 09/30/18 17:48 Resp 16 09/30/18 17:48 BP 144/53 H 09/30/18 17:01 Pulse Ox 97 09/30/18 17:48 CONSTITUTIONAL: WNWD, vitals as above, generally well-appearing EYES: EOMI bilaterally, PERRL, normal conjuctivae, no scleral icterus ENT: oropharynx clear, MMM RESPIRATORY: clear to auscultation bilaterally, no crackles, rales or wheezes, normal respiratory effort CARDIOVASCULAR: regular rate and rhythm, S1 and 2 heard without murmurs, gallops or rubs, no JVD, no peripheral edema GASTROINTESTINAL: normal bowel sounds, soft, nontender, nondistended MUSCULOSKELETAL: strength 5/5 throughout, limited flexion of R knee (chronic) head is normocephalic and atraumatic SKIN: warm and dry NEUROLOGIC: patellar, brachioradialis reflexes 2+ bilat. PERRL, EOMI, no facial palsy, no dysarthria. CN 2-12 grossly intact, no sensory deficit, normal cognition, normal speech PSYCHIATRIC: alert cooperative and oriented to person, place and time. Principal Diagnosis symptomatic anemia, hypoglycemia, DMII, pulmonary nodule, anemia of chronic disease, ambulatory dysfunction, sacral decubitus ulcer Discharge Data Allergies Allergy/AdvReac Type Severity Reaction Status Date / Time No Known Allergies Allergy Mild Verified 09/30/18 15:08 Consultations 09/30/18 16:36 ED Decision to Admit Stat 09/30/18 18:41 Consult Case Management - Discharge Planning Routine 10/01/18 19:20 Consult Gastroenterology Routine Ordered Studies 09/30/18 14:43 CT cervical spine wo con Stat CT head/brain wo con Stat 10/01/18 12:16 CT abd pelvis wo con Urgent CT chest wo con Urgent Hospital Course (1) Hypoglycemia: Likely related to home glipizide use. Metformin absolutely contraindicated secondary to his advanced renal disease. Will consider low-dose glipizide going home but not current dose of 10 mg p.o. twice daily. He is starting to have elevated blood sugars above 200 today. Continue carbohydrate coverage with sliding scale and continue to monitor blood sugar closely. A1c this admission is 6.4. (2) Symptomatic anemia: Clinically improved status post blood transfusion. Baseline H&H is difficult to determine as patient also [facility]. However, he is significantly lower than discharge 1 month ago (05/04 on 09/01 admitted with 7.3/23.1 on 09/30). Iron studies reveal evidence of iron deficiency, however, anemia is likely multifactorial including anemia of chronic disease and frequent phlebotomy with recent hospitalization that included VATS procedure. INR has been supratherapeutic since discharge and Coumadin has been held. Since blood transfusion this admission, H&H has been stable. CT chest some and pelvis was performed looking for occult bleed status post VATS procedure last month with a supratherapeutic INR. There was evidence of an intramuscular hematoma present in the psoas muscle. This may have been during a fall at home or when he bumped into something as he reported doing some furniture walking. Stool was positive for fecal occult blood however, patient declines any endoscopy workup. There is some evidence of iron deficiency and iron supplementation has been started. Anemia is likely multifactorial in the setting of chronic disease. Also, in the setting of recent nausea and pain in the evenings would like to rule out H. pylori. Stool antigen has been ordered for this. This will need to be followed up by primary care doctor as outpatient. (3) Weakness: Weakness is improved after improvement in anemia and blood glucose. Per PT/OT evaluations, patient will require short-term rehab. Pt currently thinking about it. (4) DEMPSEY (dyspnea on exertion): This is improved after blood transfusion. Repeat echocardiogram is unchanged from prior. Did discuss this case peripherally with cardiology and there are no new acute concerns with the recent findings. (5) CKD (chronic kidney disease), stage III: He is at baseline around 1.7. Continue to avoid nephrotoxic substances. DC metformin as above. Renally dose medications as needed. (6) T2DM (type 2 diabetes mellitus): Repeat A1c this admission is 6.4. Hypoglycemia and plan as above. (7) Fall: Has had some tenderness in his lower ribs on the right side, however, no TTP and no evidence of fracture on CT chest. The patient is unsure how this occurred but has had pain since coming in to the hospital. 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 He is improved with a warm compress to the area. PT/OT evaluations as per plan above. CT of the C- spine without contrast was negative for acute cervical spine fracture or subluxation. Head CT was not significant revealed no acute intracranial abnormality. Plan for rehab at discharge. (8) Atrial fibrillation: 88-year-old diabetic man who was recently hospitalized 1 month ago pres ented to the emergency department with reports of weakness and falling twice at home. He was too weak to get up and had to be helped by family into his recliner, then falling the following day prompting an EMS call by family. He is a very poor historian. On arrival to the ER his blood sugar was found to be 31 and he was notably on metformin and glipizide at home. He does have a history of stage III CKD with a baseline creatinine 1.7. H&H revealed 7.3/23 which was a 3 g drop in hemoglobin from previous discharge [address] without contrast revealed no significant change compared to the prior study with no acute intracranial abnormality. A CT of the cervical spine without contrast revealed no acute cervical spine fracture or subluxation. A chest x-ray revealed no active disease in the chest with bilateral calcified pleural plaques and a small stable left pleural effusion with stable basilar atelectasis/scarring. EKG revealed atrial fibrillation with a right bundle br anch block with no ST changes. He was transfused 2 units of blood with appropriate response and blood counts remained stable throughout the rest of the hospitalization. Based on the weakness and dizziness he was evaluated by physical therapy and thought to be unsafe living at home independently. SNF was recommended however, the patient declined. He does have a fiance that he lives with, but she goes to her home on the weekends. Otherwise she is there 25/01. He did have some dyspnea on exertion related to the weakness which was suspected secondary to symptomatic anemia and resolved after blood administration. An echocardiogram revealed no significant change since the prior study. He was noted to manage his medications himself. He was supposed to be on digoxin Wednesday, however, he has continued to take this daily. Digoxin levels were subtherapeutic. Coumadin was held in the setting of anemia and INR was allowed to fall spontaneously. As a result of significant anemia iron studies was ordered, as well as CT imaging of the chest, abdomen and pelvis to rule out an occult bleed. In addition, a peripheral smear, and H. pylori stool antigen in the setting of daily functional dyspepsia, and a fecal occult blood were performed. His reticulocyte count was elevated. Peripheral smear revealed a normocytic anemia that was consistent with anemia of chronic disease. There was no evidence of myelodysplasia. Imaging revealed a pleural-based nodule of the left lower lobe measuring 1.1 x 1.3 cm that was not definitively seen on a comparison chest CT. Follow-up for this is recommended as outpatient. There was mild asymmetric prominence of the right iliopsoas muscle curvature compared to the left consistent with a small intramuscular hematoma. A large retr operitoneal hematoma was not identified. 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 A fecal occult blood was positive and he was seen by [facility]. There was no evidence of overt ongoing GI bleeding, no GI symptoms and there was a small hiatal hernia noted on CAT scan. He refused the patient refused any procedure or workup from an endoscopy perspective. He denies a history of colonoscopy in the past. An empiric course of p.o. PPI was recommended for 4 weeks. He was found to have a sacral decubitus ulcer which was unstageable secondary to maceration. Wound care did follow the patient while he was admitted and Home Health for wound care is recommended going home. As the patient declined SNF he will also go home with Home Health for physical and occupational therapy, and for assistance with medications as there are multiple changes on discharge. He will need repeat finger stick glucose checks to ensure he is not becoming hypoglycemic on discharge diabetic regimen. Close follow-up with primary care is recommended, and [facility]. His sister and her were present at time of discharge and all assessment and plan was reviewed with them. They verbalized understanding with intent to comply. It is recommended that someone accompany him to medical appointments to ensure compliance with all instructions. On discharge Coumadin will be held for approximately 1 week and restarted by the primary care doctor to allow time for the intramuscular hematoma to improve. In the setting of falls, long-term continuation of Coumadin needs to be really re-evaluated by the Set Up And Lay Out Inspector from a risk versus benefit standpoint. He will continue baby aspirin which will offer some protection from stroke in the setting of persistent atrial fibrillation. Metformin was stopped on discharge in the setting of CKD with a baseline creatinine around 1.7. Digoxin was changed to Wednesday consistent with recent cardiac recommendations. At time of discharge she was asymptomatic. He was mentating at baseline and tolerating p.o. He was hemodynamically stable and afebrile and oxygenating well on room air. Physical exam was unchanged. He was discharged in stable condition with his primary care follow-up recommended. Total Time Total Time Spent Total Time Spent (In Minutes): 60 Total Time Includes: Examination of the Patient, Discharge Planning, Medication Reconciliation, Communication With Other Providers and Other (scheduled follow- up) Discharge Plan Discharge Items Patient Disposition: Home - Home Health Services Reason For Visit: SYMPTOMATIC HYPOGLYCEMIA, ANEMIA Discharge Diagnosis: symptomatic anemia, hypoglycemia, DMII, pulmonary nodule, anemia of chronic disease, ambulatory dysfunction, sacral decubitus ulcer Discharge Goals: Improve disease control Activity: Resume your previous activity Non-emergency contact: Primary Care Provider Call non-emergency contact if: you have any medication questions, your symptoms worsen, your pain is not controlled and you have a fever Follow-up/Referrals: Gopi Valdivia M.D. [Primary Care Provider] - Diet: Carb Consistent or DM2 Addtl Provider Instructions: Please take all medications as instructed on discharge list below. It is recommended that you follow-up with primary care doctor within 1 week of discharge. You have an appointment with Dr. Valdivia at the [facility] on October 10 at 2 PM. You were found to have a lung nodule on imaging done during this hospitalization for which he will need a follow-up with primary care for repeat imaging. Please discuss this with your primary care doctor at the hospital follow-up appointment. You have a sacral decubitus ulcer which will need consistent wound care until co mplete resolution. Home health nursing has been ordered for this, however, you may need to follow-up with the wound care. Please discuss with primary care provider at follow-up. You are noted to have significant anemia during the hospitalization requiring 2 units of blood to be transfused. As part of the workup we sent out a stool study to check for a bacteria in your belly called H. pylori. This was still pending at discharge and will need to be followed up by your primary care provider. It was a pleasure taking care of you! Please call if you have any questions or problems. You can reach a [facility] hospitalist on duty at [facility] 24 hours a day by calling [phone]. Take care of yourself. Shea Amaro, DO [facility] Hospitalist Prescriptions: New ferrous sulfate 325 mg (65 mg iron) Tablet,Delayed Release (Dr/Ec) 325 mg PO BIDM Qty: 60 RF: 1 glipizide 5 mg tablet 2.5 mg PO BID Qty: 30 RF: 1 Continued hydralazine 25 mg Tablet 12.5 mg PO BID RF: 0 tramadol 50 mg Tablet 50 mg PO Q6H PRN (Reason: Pain) RF: 0 acetaminophen [Tylenol Extra Strength] 500 mg Tablet 1,000 mg PO DIRECTED PRN (Reason: Pain) RF: 0 simvastatin 20 mg Tablet 20 mg PO QAM RF: 0 aspirin 81 mg Tablet,Chewable 81 mg PO QAM RF: 0 digoxin 125 mcg Tablet 0.125 mg PO MOWEFR@0900 RF: 0 metoprolol succinate 25 mg Tablet Extended Release 24 Hr 12.5 mg PO QAM RF: 0 Discontinued glipizide 10 mg Tablet 10 mg PO BID RF: 0 metformin 850 mg Tablet 850 mg PO BID RF: 0 warfarin 5 mg Tablet 2.5 mg PO DAILY RF: 0 Stand-Alone Forms: [facility] Discharge Orders: Discharge Order (Routine); Ordered 10/04/18 Ordered By: Shea Amaro Admission Data Admit Date/Time: 09/30/18 17:21 Attending Provider: Shea Amaro Admit Provider: Shea Amaro Primary Care Provider: Gopi Valdivia Other Providers: Shea Amaro ; Jay Weinberg ; Breanna Mary ; Phyllis Mcnair ; Elijah Alberto ; Frank Ambrosio ; Otto Jimenez ; Rabia Hernandez ; Preston Banegas ; Jian Jose ; Irma Portillo ; Alecia Russell ; Shanti Sanchez ; Alix Zapien ; Travis Godoy Service: Medical
== END 2018-10-04 16:42 | disposition home health service (06) | DRG 812 ==
LOC: ED 13:49 → 2S 17:21 → 4E 10-02 11:01